=== PATIENT | male | born 1935 | race Caucasian/White ===

== ENCOUNTER 2017-08-12 14:19 | Inpatient (IN) | payer MEDICARE, SELFPAY ==
[2017-08-12] VITALS (9 sets, daily range): BP systolic 137–189; BP diastolic 77–109; PULSE 68–98; RESP 16–19; TEMP 36.2–37.2; O2SAT 97–100; BMI 31.5
--- NOTE | 2017-08-12 14:16 | ED.FALL ---
HPI - Fall <Loni Henderson PA-C - Last Filed: 08/12/17 17:44> General Chief Complaint: Extremity Injury, Lower Stated Complaint: Fall / R Hip Pain Time Seen by Provider: 08/12/17 14:19 Source: patient Mode of arrival: EMS Limitations: no limitations History of Present Illness HPI Narrative: This 82 year old male tripped and fell down one lower step prior to arrival. He landed on his right hip and states he has had pain since, had to be helped up. He states that after he hit his hip he bumped his head on a ledge that was sticking out, but states that this occurred after he fell. He states that pain is localized to the hip, denies any headache, nausea, vomiting, or vision change. He denies any pain at all in the upper extremities, abdomen, or spine. He states that he has arthritis in his right knee and wears a brace but not having any pain there. He denies any CP, dyspnea, dizzyness or other problems leading to the fall and states that he simply slipped. Related Data Home Medications Medication Instructions Recorded Confirmed lisinopril 20 mg PO QDAY #0 08/14/10 Allergies Allergy/AdvReac Type Severity Reaction Status Date / Time Penicillins [PENICILLINS] Allergy Severe HEADACHE, Verified 08/12/17 14:26 CHEST PAIN Review of Systems <Loni Henderson PA-C - Last Filed: 08/12/17 17:44> Review of Systems All systems reviewed & are unremarkable except as noted in HPI and below Exam <Loni Henderson PA-C - Last Filed: 08/12/17 17:44> Narrative Exam Narrative: GENERAL APPEARANCE: Patient sitting comfortably, in no distress. HEENT: Normocephalic, atraumatic, right iris and pupil cloudy and poorly reactive, EOMI, NECK: Supple LUNGS: Clear to auscultation bilaterally. HEART: Rate and rhythm regular without murmur, normal S1 and S2, no S3 or S4. ABDOMEN: Soft, NT, ND, + BS x 4 quadrants NEUROLOGIC: Alert and oriented, normal speech,and coordination. Right lower extremity sensation grossly intact MUSCULOSKELETAL: Full Csp AROM without tenderness. No tenderness over the thoracolumbar spine. No tenderness over the upper extremities. No tenderness over the lower extremities aside from mild tenderness over the right posterior lateral hip. He holds the hip in slight external rotation. No tenderness over the right femur, knee, or distal leg. EXTREMITIES: Ft are warm and pink with brisk cap refill, trace symmetric edema. Right PT and DP pulses 2+ Initial Vital Signs Initial Vital Signs: Vital Signs Temperature 97.5 F L 08/12/17 14:22 Pulse Rate 98 H 08/12/17 14:22 Respiratory Rate 18 08/12/17 14:22 Blood Pressure 189/109 H 08/12/17 14:22 Pulse Oximetry 99 08/12/17 14:22 <Edmond Vaughan MD - Last Filed: 08/12/17 17:51> Initial Vital Signs Initial Vital Signs: Vital Signs Temperature 97.5 F L 08/12/17 14:22 Pulse Rate 98 H 08/12/17 14:22 Respiratory Rate 18 08/12/17 14:22 Blood Pressure 189/109 H 08/12/17 14:22 Pulse Oximetry 99 08/12/17 14:22 Course <Loni Henderson PA-C - Last Filed: 08/12/17 17:44> Hospital Course: Spoke with Dr. Marroquin who will admit patient to medicine. EKG and lab work ordered. Dr. Hanna requested patient be NPO after midnight Orders Ordered: ED Orders 08/12/17 14:10 Basic Metabolic Panel Stat Complete Blood Count AUTO DIFF Stat Partial Thromboplastin Time Stat Prothrombin Time INR Stat 08/12/17 14:24 XR hip w pel if done RT 2V Stat 08/12/17 16:55 EKG-12 Lead Stat Vital Signs - 8 hr 08/12/17 14:22 08/12/17 14:29 08/12/17 14:38 Temperature 97.5 F L 98.4 F Pulse Rate 98 H 85 83 Respiratory Rate 18 16 Blood Pressure 189/109 H Blood Pressure [Left Arm] 189/109 H 171/90 H Pulse Oximetry 99 98 100 08/12/17 15:30 08/12/17 16:37 08/12/17 17:23 Temperature Pulse Rate 70 79 79 Respiratory Rate 16 18 Blood Pressure Blood Pressure [Left Arm] 174/77 H 161/83 H 174/83 H Pulse Oximetry 99 100 99 <Edmond Vaughan MD - Last Filed: 08/12/17 17:51> Orders Ordered: ED Orders 08/12/17 14:10 Basic Metabolic Panel Stat Complete Blood Count AUTO DIFF Stat Partial Thromboplastin Time Stat Prothrombin Time INR Stat 08/12/17 14:24 XR hip w pel if done RT 2V Stat 08/12/17 16:55 EKG-12 Lead Stat Vital Signs - 8 hr 08/12/17 14:22 08/12/17 14:29 08/12/17 14:38 Temperature 97.5 F L 98.4 F Pulse Rate 98 H 85 83 Respiratory Rate 18 16 Blood Pressure 189/109 H Blood Pressure [Left Arm] 189/109 H 171/90 H Pulse Oximetry 99 98 100 08/12/17 15:30 08/12/17 16:37 08/12/17 17:23 Temperature Pulse Rate 70 79 79 Respiratory Rate 16 18 Blood Pressure Blood Pressure [Left Arm] 174/77 H 161/83 H 174/83 H Pulse Oximetry 99 100 99 MDM - Fall <Loni Henderson PA-C - Last Filed: 08/12/17 17:44> Lab Data Result diagrams: 08/12/17 14:10 08/12/17 14:10 Lab Results 08/12/17 08/12/17 08/12/17 Range/Units 14:10 14:10 14:10 WBC 8.6 (4.5-11.0) X10^3/uL RBC 5.05 (4.5-5.9) X10^6/uL Hgb 15.1 (13.5-17.5) g/dL Hct 43.5 (41-53) % MCV 86.2 (80-100) fL MCH 30.0 (26-34) PG MCHC 34.8 (30-36) % RDW 13.4 (11.6-14.8) % Plt Count 224 (150-400) X10^3/uL Neut % (Auto) 51.9 (50-75) % Lymph % (Auto) 35.0 (25-40) % [place] % (Auto) 9.0 (3-14) % Eos % (Auto) 2.0 (2-4) % Baso % (Auto) 2.1 H (0-2) % Neut # (Auto) 4500 (6963-2383) /uL PT 11.6 (10.1-12.7) SECONDS INR 1.1 (0.9-1.3) APTT 35 (26.4-36.2) SECONDS Sodium 130 L (137-145) mmol/L Potassium 3.8 (3.4-5.1) mmol/L Chloride 93.0 L (98-107) mmol/L Carbon Dioxide 24.0 (22-32) mmol/L BUN 12.0 (9-20) mg/dL Creatinine 0.90 (0.66-1.25) mg/dL Estimated GFR > 60.0 (>60) mL/min BUN/Creatinine Ratio 13.3 (6-22) Glucose 110 (80-110) mg/dL Calcium 9.5 (8.4-10.2) mg/dL Imaging Data hip: Radiologist's impression: [address] [address] XRay Report Signed Patient: Renan Pérez MR#: [id number] : 1935 Acct:[id number] Age/Sex: 82 / M Date of Service: 08/12/17 Loc: ED Accession Number: [id number] Procedure: XR hip w pel if done RT 2V Ordering Provider: Loni Henderson P.A-C PROCEDURE: XR HIP W PEL IF DONE RT 2V INDICATIONS: fall, pain TECHNIQUE: 3 views of the hip were acquired. COMPARISON: None. FINDINGS: Bones: There is a mildly displaced intertrochanteric fracture of the proximal right femur. Mild joint space narrowing present in the hip joints. No suspicious bony lesions. The visualized pelvic ring appears intact. Soft tissues: There is a small linear calcification adjacent to the right lesser trochanter which may represent sequelae of an avulsion injury. IMPRESSION: 1. Mildly displaced intertrochanteric fracture of the proximal right femur. Dictated by: Christian Bonilla M.D. on 08/12/2017 at 15:01 Approved by: Christian Bonilla M.D. on 08/12/2017 at 15:02 ECG Data Attestation: I personally reviewed and interpreted this ECG as follows: (Normal sinus rhythm with rate 79, borderline left axis deviation) Prior ECG tracings: not available for review <Edmond Vaughan MD - Last Filed: 08/12/17 17:51> Lab Data Lab Results 08/12/17 08/12/17 08/12/17 Range/Units 14:10 14:10 14:10 WBC 8.6 (4.5-11.0) X10^3/uL RBC 5.05 (4.5-5.9) X10^6/uL Hgb 15.1 (13.5-17.5) g/dL Hct 43.5 (41-53) % MCV 86.2 (80-100) fL MCH 30.0 (26-34) PG MCHC 34.8 (30-36) % RDW 13.4 (11.6-14.8) % Plt Count 224 (150-400) X10^3/uL Neut % (Auto) 51.9 (50-75) % Lymph % (Auto) 35.0 (25-40) % [place] % (Auto) 9.0 (3-14) % Eos % (Auto) 2.0 (2-4) % Baso % (Auto) 2.1 H (0-2) % Neut # (Auto) 4500 (6121-1423) /uL PT 11.6 (10.1-12.7) SECONDS INR 1.1 (0.9-1.3) APTT 35 (26.4-36.2) SECONDS Sodium 130 L (137-145) mmol/L Potassium 3.8 (3.4-5.1) mmol/L Chloride 93.0 L (98-107) mmol/L Carbon Dioxide 24.0 (22-32) mmol/L BUN 12.0 (9-20) mg/dL Creatinine 0.90 (0.66-1.25) mg/dL Estimated GFR > 60.0 (>60) mL/min BUN/Creatinine Ratio 13.3 (6-22) Glucose 110 (80-110) mg/dL Calcium 9.5 (8.4-10.2) mg/dL Discharge Plan Departure Discharge Date/Time: 08/12/17 17:18 Admit Date/Time: 08/12/17 17:16 Admit Provider: Turner Marroquin <Edmond Vaughan MD - Last Filed: 08/12/17 17:51> Cosign ED Attending Cosignature Attestation: I was the attending of record and available in the ED. I attest to the documentation and agree with the assessment and plan.
--- NOTE | 2017-08-12 14:24 | DI.RAD.S_ITS ---
PROCEDURE: XR HIP W PEL IF DONE RT 2V INDICATIONS: fall, pain TECHNIQUE: 3 views of the hip were acquired. COMPARISON: None. FINDINGS: Bones: There is a mildly displaced intertrochanteric fracture of the proximal right femur. Mild joint space narrowing present in the hip joints. No suspicious bony lesions. The visualized pelvic ring appears intact. Soft tissues: There is a small linear calcification adjacent to the right lesser trochanter which may represent sequelae of an avulsion injury. IMPRESSION: 1. Mildly displaced intertrochanteric fracture of the proximal right femur. Dictated by: Christian Bonilla M.D. on 08/12/2017 at 15:01 Approved by: Christian Bonilla M.D. on 08/12/2017 at 15:02
[2017-08-12 17:05] LABS: INR 1.1 (0.9-1.3); Prothrombin Time 11.6 SECONDS (10.1-12.7)
[2017-08-12 17:08] LABS: PTT Partial Thromboplastin Tim 35 SECONDS (26.4-36.2)
[2017-08-12 17:11] LABS: Add Manual Diff / Slide Review NO; Basophils Percent Auto 2.1 % (0-2); Hematocrit 43.5 % (41-53); Hemoglobin 15.1 g/dL (13.5-17.5); Mean Corpuscular HGB Conc 34.8 % (30-36); Mean Corpuscular Volume 86.2 fL (80-100); Neutrophils Absolute Auto 4500 /uL (3000-5900); Neutrophils Percent Auto 51.9 % (50-75); Platelet Count 224 X10^3/uL (150-400); Red Blood Cell Count 5.05 X10^6/uL (4.5-5.9); Red Cell Distribution Width 13.4 % (11.6-14.8); White Blood Cell Count 8.6 X10^3/uL (4.5-11.0)
[2017-08-12 17:15] LABS: BUN Creatinine Ratio 13.3 (6-22); Calcium 9.5 mg/dL (8.4-10.2); Estimated Glomerular Filt Rate > 60.0 mL/min (>60); Glucose 110 mg/dL (80-110); HEMOLYSIS 37 (0-50); Potassium 3.8 mmol/L (3.4-5.1); Sodium 130 mmol/L (137-145)
--- NOTE | 2017-08-12 19:49 | PM.HP.1 ---
History of Present Illness Date Patient Seen: 08/12/17 Time Patient Seen: 19:57 Chief complaint: Fall / R Hip Pain Narrative: Renan Pérez is a 82 year old male patient of who was walking in his steps today turned pivoted and fell landing on his right hip. Had immediate pain. Unable to bear weight. Was brought to the emergency room. Patient had no dizziness lightheadedness. No chest pain. No other complaints. He has been feeling well. With no major issues. Past medical history. Hypertension BPH History of retinal detachment right eye Past surgical history. Colonoscopy unknown time with polyps. TURP Surgery right eye cataract and retinal repair Status post appendectomy Family history noncontributory to current admission Social history. History of smoking in the distant past. Lives with family. Retired. 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) HTN (hypertension) (Chronic) Hearing loss (Chronic) Osteoarthritis of right knee (Chronic) Retinal detachment (Resolved) Family & Social History Social History: household members spouse Prior Living Arrangements House Safety & Behavioral: Feels Safe in Current Yes Environment Been Physically Hurt or Yes Threatened By a Person Suicidal Ideation Description None Suicide Plan Description No Plan Tobacco & Substance use: Tobacco type cigarettes Smoking Status Former smoker Substance Use Type does not use Meds Home Medications Medication Instructions Recorded Confirmed Type lisinopril 20 mg PO BID #0 08/14/10 08/12/17 History Allergies Allergy/AdvReac Type Severity Reaction Status Date / Time Penicillins [PENICILLINS] Allergy Severe HEADACHE, Verified 08/12/17 14:26 CHEST PAIN Review of Systems Review of Systems All 12 systems reviewed and found to be negative Exam Vital Signs (past 8 hours): Vital Signs - 8 hr 08/12/17 14:22 08/12/17 14:29 08/12/17 14:38 Temperature 97.5 F L 98.4 F Pulse Rate 98 H 85 83 Respiratory Rate 18 16 Blood Pressure 189/109 H Blood Pressure [Left Arm] 189/109 H 171/90 H Pulse Oximetry 99 98 100 08/12/17 15:30 08/12/17 16:37 08/12/17 17:23 Temperature Pulse Rate 70 79 79 Respiratory Rate 16 18 Blood Pressure Blood Pressure [Left Arm] 174/77 H 161/83 H 174/83 H Pulse Oximetry 99 100 99 08/12/17 18:35 Temperature 97.1 F L Pulse Rate 75 Respiratory Rate 18 Blood Pressure 174/94 H Blood Pressure [Left Arm] Pulse Oximetry 98 Pulse Oximetry 98 Oxygen Delivery Method Room Air Narrative Exam Narrative: Alert elderly male in no acute distress lying in bed. HEENT exam shows right eye with what appears to be quite thick and cornea. Mother is normal. Oral mucosa unremarkable. Head shows no contusions or abrasions. Neck supple without adenopathy JVD or bruits. Normal range of motion. Lungs are clear. Heart's regular rate and rhythm without murmur clicks rubs or gallops. Abdomen is soft positive bowel sounds nontender. Extremities good pulses bilaterally normal capillary refill. Right hip was not moved. Neurologic exam was nonfocal. He is alert interactive male smiling and appropriate Objective Labs Result Diagrams: 08/12/17 14:10 08/12/17 14:10 Labs: Laboratory Results - last 24 hr 08/12/17 08/12/17 08/12/17 14:10 14:10 14:10 WBC 8.6 RBC 5.05 Hgb 15.1 Hct 43.5 MCV 86.2 MCH 30.0 MCHC 34.8 RDW 13.4 Plt Count 224 Neut % (Auto) 51.9 Lymph % (Auto) 35.0 [place] % (Auto) 9.0 Eos % (Auto) 2.0 Baso % (Auto) 2.1 H Neut # (Auto) 4500 PT 11.6 INR 1.1 APTT 35 Sodium 130 L Potassium 3.8 Chloride 93.0 L Carbon Dioxide 24.0 BUN 12.0 Creatinine 0.90 Estimated GFR > 60.0 BUN/Creatinine Ratio 13.3 Glucose 110 Calcium 9.5 Assessment & Plan Plan: Plan: Problem 1: right hip fracture. Orthopedics have been consulted. Plan is for repair tomorrow. Will start on morphine CARDIAC RN for pain control and follow. Otherwise appears stable. Problem 2. Hypertension. Will resume usual medicines. Appears to be stable. EKG is negative. Should be good candidate for repair. No other major medical problems. Problem 3. GI prophylaxis not appropriate at this time. Will follow. Problem 4. DVT prophylaxis begin Lovenox and SCDs Problem 5. Code status. Patient somewhat unclear. Will continue discussion but make full code at this time. Disposition. Admit for suspected be here 3 or 4 days depending on orthopedist response. Discussed with family. Quality VTE Deep Vein Thrombosis/Pulmonary Embolism Present on Admission: No
--- NOTE | 2017-08-12 19:58 | P.HP_ITS ---
History of Present Illness Date Patient Seen: 08/12/17 Time Patient Seen: 19:57 Chief complaint: Fall / R Hip Pain Narrative: Renan Pérez is a 82 year old male patient of who was walking in his steps today turned pivoted and fell landing on his right hip. Had immediate pain. Unable to bear weight. Was brought to the emergency room. Patient had no dizziness lightheadedness. No chest pain. No other complaints. He has been feeling well. With no major issues. Past medical history. Hypertension BPH History of retinal detachment right eye Past surgical history. Colonoscopy unknown time with polyps. TURP Surgery right eye cataract and retinal repair Status post appendectomy Family history noncontributory to current admission Social history. History of smoking in the distant past. Lives with family. Retired. 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) HTN (hypertension) (Chronic) Hearing loss (Chronic) Osteoarthritis of right knee (Chronic) Retinal detachment (Resolved) Family & Social History Social History: household members spouse Prior Living Arrangements House Safety & Behavioral: Feels Safe in Current Yes Environment Been Physically Hurt or Yes Threatened By a Person Suicidal Ideation Description None Suicide Plan Description No Plan Tobacco & Substance use: Tobacco type cigarettes Smoking Status Former smoker Substance Use Type does not use Meds Home Medications Medication Instructions Recorded Confirmed Type lisinopril 20 mg PO BID #0 08/14/10 08/12/17 History Allergies Allergy/AdvReac Type Severity Reaction Status Date / Time Penicillins [PENICILLINS] Allergy Severe HEADACHE, Verified 08/12/17 14:26 CHEST PAIN Review of Systems Review of Systems All 12 systems reviewed and found to be negative Exam Vital Signs (past 8 hours): Vital Signs - 8 hr 3 08/12/17 14:22 08/12/17 14:29 08/12/17 14:38 Temperature 97.5 F L 98.4 F Pulse Rate 98 H 85 83 Respiratory Rate 18 16 Blood Pressure 189/109 H Blood Pressure [Left Arm] 189/109 H 171/90 H Pulse Oximetry 99 98 100 3 08/12/17 15:30 08/12/17 16:37 08/12/17 17:23 Temperature Pulse Rate 70 79 79 Respiratory Rate 16 18 Blood Pressure Blood Pressure [Left Arm] 174/77 H 161/83 H 174/83 H Pulse Oximetry 99 100 99 3 08/12/17 18:35 Temperature 97.1 F L Pulse Rate 75 Respiratory Rate 18 Blood Pressure 174/94 H Blood Pressure [Left Arm] Pulse Oximetry 98 Pulse Oximetry 98 Oxygen Delivery Method Room Air Narrative Exam Narrative: Alert elderly male in no acute distress lying in bed. HEENT exam shows right eye with what appears to be quite thick and cornea. Mother is normal. Oral mucosa unremarkable. Head shows no contusions or abrasions. Neck supple without adenopathy JVD or bruits. Normal range of motion. Lungs are clear. Heart's regular rate and rhythm without murmur clicks rubs or gallops. Abdomen is soft positive bowel sounds nontender. Extremities good pulses bilaterally normal capillary refill. Right hip was not moved. Neurologic exam was nonfocal. He is alert interactive male smiling and appropriate Objective Labs Result Diagrams: 08/12/17 14:10 08/12/17 14:10 Labs: Laboratory Results - last 24 hr 08/12/17 08/12/17 08/12/17 14:10 14:10 14:10 WBC 8.6 RBC 5.05 Hgb 15.1 Hct 43.5 MCV 86.2 MCH 30.0 MCHC 34.8 RDW 13.4 Plt Count 224 Neut % (Auto) 51.9 Lymph % (Auto) 35.0 [place] % (Auto) 9.0 Eos % (Auto) 2.0 Baso % (Auto) 2.1 H Neut # (Auto) 4500 PT 11.6 INR 1.1 APTT 35 Sodium 130 L Potassium 3.8 Chloride 93.0 L Carbon Dioxide 24.0 BUN 12.0 Creatinine 0.90 Estimated GFR > 60.0 BUN/Creatinine Ratio 13.3 Glucose 110 Calcium 9.5 Assessment & Plan Plan: Plan: Problem 1: right hip fracture. Orthopedics have been consulted. Plan is for repair tomorrow. Will start on morphine RUNNING SPECIALIST for pain control and follow. Otherwise appears stable. Problem 2. Hypertension. Will resume usual medicines. Appears to be stable. EKG is negative. Should be good candidate for repair. No other major medical problems. Problem 3. GI prophylaxis not appropriate at this time. Will follow. Problem 4. DVT prophylaxis begin Lovenox and SCDs Problem 5. Code status. Patient somewhat unclear. Will continue discussion but make full code at this time. Disposition. Admit for suspected be here 3 or 4 days depending on orthopedist response. Discussed with family. Quality VTE Deep Vein Thrombosis/Pulmonary Embolism Present on Admission: No
[2017-08-12] MEDS: LISINOPRIL 20 MG TABLET PO (22:08)
[2017-08-12] MEDS: MORPHINE PCA 30 MG/30 ML PCA.VIAL IV (22:11)
[2017-08-13] VITALS (17 sets, daily range): BP systolic 110–172; BP diastolic 62–100; PULSE 57–79; RESP 14–20; TEMP 36.1–37.2; O2SAT 93–99; BMI 31.5
--- NOTE | 2017-08-13 | DI.RAD.S_ITS ---
PROCEDURE: XR HIP W PEL IF DONE RT 2V INDICATIONS: ORIF RIGHT HIP TECHNIQUE: 4 views of the hip were acquired. COMPARISON: [facility], [place], XR HIP W PEL IF DONE RT 2V, 08/12/2017, 14:12. FINDINGS: Bones: Expected postoperative appearance after placement of short medullary kodi and a diagonal dynamic hip screw establishing normal alignment at the acute intertrochanteric right hip fracture Soft tissues: No suspicious soft tissue calcifications or masses. IMPRESSION: Normal postoperative alignment. Dictated by: Jesus Sheets M.D. on 08/13/2017 at 11:53 Approved by: Jesus Sheets M.D. on 08/13/2017 at 11:54
[2017-08-13] MEDS: MORPHINE PCA 30 MG/30 ML PCA.VIAL IV (05:47)
[2017-08-13 06:01] LABS: Add Manual Diff / Slide Review NO; Basophils Percent Auto 1.3 % (0-2); Eosinophils Percent Auto 3.5 % (2-4); Hemoglobin 14.4 g/dL (13.5-17.5); Lymphocytes Percent Auto 22.4 % (25-40); Mean Corpuscular HGB Conc 35.1 % (30-36); Mean Corpuscular Hemoglobin 29.9 PG (26-34); Mean Corpuscular Volume 85.2 fL (80-100); Monocytes Percent Auto 10.9 % (3-14); Neutrophils Absolute Auto 5700 /uL (3000-5900); Neutrophils Percent Auto 61.9 % (50-75); Platelet Count 193 X10^3/uL (150-400); Red Blood Cell Count 4.81 X10^6/uL (4.5-5.9); Red Cell Distribution Width 13.2 % (11.6-14.8); White Blood Cell Count 9.3 X10^3/uL (4.5-11.0)
[2017-08-13 06:13] LABS: BUN Creatinine Ratio 18.6 (6-22); Estimated Glomerular Filt Rate > 60.0 mL/min (>60); Glucose 98 mg/dL (80-110); HEMOLYSIS 15 (0-50); Potassium 4.4 mmol/L (3.4-5.1); Sodium 129 mmol/L (137-145)
--- NOTE | 2017-08-13 06:58 | PC.NURSE ---
NOC note: Pt used only 2mg of DIRECTOR OF C[employer]US RECREATION Morphine stating that his pain has improved over the night, using the urinal to void and pt has remained NPO after midnight as ordered.
[2017-08-13] MEDS: LISINOPRIL 20 MG TABLET PO ×2 (08:04→20:43)
--- NOTE | 2017-08-13 08:04 | PM.PN.1 ---
Subjective Date Patient Seen: 08/13/17 Time Patient Seen: 08:04 Interval history: Patient overall feeling well. No chest pain. No shortness of breath. Did not sleep well secondary to the pain. Did feel like the FRONT DESK ASSOCIATE worked. No other changes. Exam Vital Signs (past 8 hours): Vital Signs - 8 hr 08/13/17 01:00 08/13/17 05:00 Temperature 98.4 F Pulse Rate 66 Respiratory Rate 16 Blood Pressure 150/80 H Pulse Oximetry 97 98 Pulse Oximetry 98 Oxygen Delivery Method Room Air Oxygen Flow Rate 0 Narrative Exam Narrative: Alert male in no acute distress sitting in bed smiling Lungs are clear. Heart regular in rhythm. Extremities with good pulses. Normal capillary refill. Objective Labs Result Diagrams: 08/13/17 05:16 08/13/17 05:16 Labs: Laboratory Results - last 24 hr 08/12/17 08/12/17 08/12/17 14:10 14:10 14:10 WBC 8.6 RBC 5.05 Hgb 15.1 Hct 43.5 MCV 86.2 MCH 30.0 MCHC 34.8 RDW 13.4 Plt Count 224 Neut % (Auto) 51.9 Lymph % (Auto) 35.0 [place] % (Auto) 9.0 Eos % (Auto) 2.0 Baso % (Auto) 2.1 H Neut # (Auto) 4500 PT 11.6 INR 1.1 APTT 35 Sodium 130 L Potassium 3.8 Chloride 93.0 L Carbon Dioxide 24.0 BUN 12.0 Creatinine 0.90 Estimated GFR > 60.0 BUN/Creatinine Ratio 13.3 Glucose 110 Calcium 9.5 08/13/17 08/13/17 05:16 05:16 WBC 9.3 RBC 4.81 Hgb 14.4 Hct 41.0 MCV 85.2 MCH 29.9 MCHC 35.1 RDW 13.2 Plt Count 193 Neut % (Auto) 61.9 Lymph % (Auto) 22.4 L [place] % (Auto) 10.9 Eos % (Auto) 3.5 Baso % (Auto) 1.3 Neut # (Auto) 5700 PT INR APTT Sodium 129 L Potassium 4.4 Chloride 94.0 L Carbon Dioxide 25.0 BUN 13.0 Creatinine 0.70 Estimated GFR > 60.0 BUN/Creatinine Ratio 18.6 Glucose 98 Calcium 9.0 Assessment & Plan Plan: Plan: Problem 1. Right intra trochanteric hip fracture. As per orthopedist. Surgery today. Should be fine. Problem 2. Hypertension. Mildly elevated will see how he responds to his usual dose of lisinopril. Will follow. Problem 3. DVT prophylaxis. SCDs. Will hold Lovenox. Otherwise as per orthopedist. Problem 4. GI prophylaxis. No need at this time. Will follow. Disposition. We will see how he response to surgery. Excellent another couple days but will see what Orthopedics recommend. Quality VTE Deep Vein Thrombosis/Pulmonary Embolism Present on Admission: Yes
--- NOTE | 2017-08-13 08:07 | P.PN_ITS ---
Subjective Date Patient Seen: 08/13/17 Time Patient Seen: 08:04 Interval history: Patient overall feeling well. No chest pain. No shortness of breath. Did not sleep well secondary to the pain. Did feel like the SR VICE PRESIDENT worked. No other changes. Exam Vital Signs (past 8 hours): Vital Signs - 8 hr 3 08/13/17 01:00 08/13/17 05:00 Temperature 98.4 F Pulse Rate 66 Respiratory Rate 16 Blood Pressure 150/80 H Pulse Oximetry 97 98 Pulse Oximetry 98 Oxygen Delivery Method Room Air Oxygen Flow Rate 0 Narrative Exam Narrative: Alert male in no acute distress sitting in bed smiling Lungs are clear. Heart regular in rhythm. Extremities with good pulses. Normal capillary refill. Objective Labs Result Diagrams: 08/13/17 05:16 08/13/17 05:16 Labs: Laboratory Results - last 24 hr 08/12/17 08/12/17 08/12/17 14:10 14:10 14:10 WBC 8.6 RBC 5.05 Hgb 15.1 Hct 43.5 MCV 86.2 MCH 30.0 MCHC 34.8 RDW 13.4 Plt Count 224 Neut % (Auto) 51.9 Lymph % (Auto) 35.0 [place] % (Auto) 9.0 Eos % (Auto) 2.0 Baso % (Auto) 2.1 H Neut # (Auto) 4500 PT 11.6 INR 1.1 APTT 35 Sodium 130 L Potassium 3.8 Chloride 93.0 L Carbon Dioxide 24.0 BUN 12.0 Creatinine 0.90 Estimated GFR > 60.0 BUN/Creatinine Ratio 13.3 Glucose 110 Calcium 9.5 08/13/17 08/13/17 05:16 05:16 WBC 9.3 RBC 4.81 Hgb 14.4 Hct 41.0 MCV 85.2 MCH 29.9 MCHC 35.1 RDW 13.2 Plt Count 193 Neut % (Auto) 61.9 Lymph % (Auto) 22.4 L [place] % (Auto) 10.9 Eos % (Auto) 3.5 Baso % (Auto) 1.3 Neut # (Auto) 5700 PT INR APTT Sodium 129 L Potassium 4.4 Chloride 94.0 L Carbon Dioxide 25.0 BUN 13.0 Creatinine 0.70 Estimated GFR > 60.0 BUN/Creatinine Ratio 18.6 Glucose 98 Calcium 9.0 Assessment & Plan Plan: Plan: Problem 1. Right intra trochanteric hip fracture. As per orthopedist. Surgery today. Should be fine. Problem 2. Hypertension. Mildly elevated will see how he responds to his usual dose of lisinopril. Will follow. Problem 3. DVT prophylaxis. SCDs. Will hold Lovenox. Otherwise as per orthopedist. Problem 4. GI prophylaxis. No need at this time. Will follow. Disposition. We will see how he response to surgery. Excellent another couple days but will see what Orthopedics recommend. Quality VTE Deep Vein Thrombosis/Pulmonary Embolism Present on Admission: Yes
[2017-08-13] MEDS: LACTATED RINGERS 1,000 ML 42 ML IV (09:15)
[2017-08-13] MEDS: CLINDAMYCIN 900 MG/50 ML PIGGYBACK 50 MG IV ×2 (09:35→18:03)
--- NOTE | 2017-08-13 09:38 | P.CONS_ITS ---
History of Present Illness Date Patient Seen: 08/13/17 Time Patient Seen: 08:38 Chief complaint: Fall / R Hip Pain Reason for consult: hip fracture Requesting provider: Jerry Leos Narrative: Mr. Pérez is a 82-year-old male who had a fall and landed on his right hip. Patient was transported to the [facility] Emergency Room. Patient was found to have a right femur intertrochanteric fracture. Orthopedic service was consulted. After reviewing patient's images and discussing treatment options patient elected to proceed with surgical treatment. Patient is scheduled for closed reduction intramedullary nailing of the right proximal femur. 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) HTN (hypertension) (Chronic) Hearing loss (Chronic) Osteoarthritis of right knee (Chronic) Retinal detachment (Resolved) Surgical History H/O cataract removal with insertion of prosthetic lens (Acute) S/P TURP (status post transurethral resection of prostate) (Acute) S/P colonoscopy with polypectomy (Acute) Social History household members: spouse Smoking Status: Former smoker Meds Home Medications Medication Instructions Recorded Confirmed Type lisinopril 20 mg PO BID #0 08/14/10 08/12/17 History Allergies Allergy/AdvReac Type Severity Reaction Status Date / Time Penicillins [PENICILLINS] Allergy Severe HEADACHE, Verified 08/13/17 09:23 CHEST PAIN Review of Systems Review of Systems All systems reviewed & are unremarkable except as noted in HPI and below Exam Vital Signs (past 8 hours): Vital Signs - 8 hr 3 08/13/17 05:00 08/13/17 07:45 Temperature 98.4 F 98 F Pulse Rate 66 69 Respiratory Rate 16 18 Blood Pressure 150/80 H 154/100 H Pulse Oximetry 98 99 Pulse Oximetry 99 Oxygen Delivery Method Room Air Oxygen Flow Rate 0 Extrem Other: Right leg is shortened and externally rotated. Pain with exam. Neurovascularly intact. Objective Labs Result Diagrams: 08/13/17 05:16 08/13/17 05:16 Labs: Laboratory Results - last 24 hr 08/12/17 08/12/17 08/12/17 14:10 14:10 14:10 WBC 8.6 RBC 5.05 Hgb 15.1 Hct 43.5 MCV 86.2 MCH 30.0 MCHC 34.8 RDW 13.4 Plt Count 224 Neut % (Auto) 51.9 Lymph % (Auto) 35.0 Graham % (Auto) 9.0 Eos % (Auto) 2.0 Baso % (Auto) 2.1 H Neut # (Auto) 4500 PT 11.6 INR 1.1 APTT 35 Sodium 130 L Potassium 3.8 Chloride 93.0 L Carbon Dioxide 24.0 BUN 12.0 Creatinine 0.90 Estimated GFR > 60.0 BUN/Creatinine Ratio 13.3 Glucose 110 Calcium 9.5 08/13/17 08/13/17 05:16 05:16 WBC 9.3 RBC 4.81 Hgb 14.4 Hct 41.0 MCV 85.2 MCH 29.9 MCHC 35.1 RDW 13.2 Plt Count 193 Neut % (Auto) 61.9 Lymph % (Auto) 22.4 L Graham % (Auto) 10.9 Eos % (Auto) 3.5 Baso % (Auto) 1.3 Neut # (Auto) 5700 PT INR APTT Sodium 129 L Potassium 4.4 Chloride 94.0 L Carbon Dioxide 25.0 BUN 13.0 Creatinine 0.70 Estimated GFR > 60.0 BUN/Creatinine Ratio 18.6 Glucose 98 Calcium 9.0 Assessment & Plan Plan: Plan: Patient has a displaced right proximal femur intertrochanteric fracture. Risks and benefits of the surgery was discussed. Patient is scheduled to have right femur intramedullary nailing for treatment of his fracture. The surgery will be performed on an emergent basis today.
--- NOTE | 2017-08-13 11:46 | PM.OP.1 ---
Operative Date/Time/Diagnoses - Date of procedure: 08/13/17 Time of procedure: 09:46 Pre-op diagnosis: Right femur intertrochanteric fracture Post-op diagnosis: same Procedure & Clinicians Procedure: Right femur close reduction and intramedullary nailing with cephalomedullary device Same procedure as scheduled: Yes Indications: Mr. Pérez is a 82-year-old male who had a fall and sustained a right proximal femur intertrochanteric fracture. After discussing risks and benefits of treatment options patient elected proceed with surgical treatment. Patient was taken to the operative room on the emergent basis for surgery. Surgeon: Rock Hanna Click Yes if Unassisted: Yes Anesthesia Type: General Operative Notes Closure Type: primary Specimen(s): none sent Implants & Drains: Synthes TFN IMN Applied: catheter Estimated Blood Loss (mL): 100 Blood products transfused: none Procedure in detail: Patient was seen in the preoperative area. Risks and benefits of the surgery was discussed with the patient. Informed consent was obtained from the patient and placed in the chart. Surgical site was marked. Patient was taken to the operative room. Spinal block and IV sedation was administered by anesthesiologist. Prophylactic antibiotic was given to the patient less than 30 min before the incision was made. Patient was placed into a supine position on the fracture table. Patient's hip was then prepped and draped in the sterile fashion. Time-out was performed at this time. Using the fracture table, a closed reduction maneuver was performed to the right proximal femur fracture. This was done by distracting internally rotating and adducting the right hip. After the fracture reduction was completed and confirmed with AP and lateral C-arm imaging, Patient's hip was then prepped and draped in the sterile fashion. A 3 in incision just proximal to the greater trochanter was made on the lateral aspect of the patient's hip. Starting guidewire was inserted through the incision onto the greater trochanter. The guidewire was driven into the intramedullary canal and confirmed with AP and lateral C-arm imaging. The canal opening Reamer was used to open the canal from the proximal to distal fashion. A 11 mm 130 degree nail was assembled on the back table and inserted into the mid intramedullary canal from a proximal distal fashion. The lateral targeting guide was used to place the cephalomedullary device by placing a lateral incision after targeting guide was used to measure the location of the incision. The fascia was incised in line with skin incision the targeting guide was inserted and docked onto the lateral aspect of the lateral cortex of the proximal femur and a guidewire was drilled through the lateral cortex into the femoral head through the femoral neck in the center location on both AP and lateral imaging. Depth gauge was used to measure the length of the cephalomedullary device a 105 mm cephalomedullary piece was chosen and placed through the lateral cortex into the femoral head through the IM nail. A distal locking screw was then placed using the same targeting guide after drilling in bicortical fashion. Depth gauge was used to measure the length. 46 mm screw was inserted. After all the hardware was placed, AP and lateral C-arm imaging was used to confirm placement of the hardware and reduction of the fracture. Good placement of the hardware and good reduction of the fracture was confirmed. The wound was then irrigated with sterile normal saline. The deep fascia was closed with 1-0 Vicryl, subcutaneous tissue was closed with 2-0 Vicryl and skin was closed with skin patricia. Sterile dressing was applied the patient's skin and patient was woken up from sedation and transferred to recovery room stable condition. Complications: none Condition: stable Disposition: PACU Plan for aftercare: Admit to inpatient hospital
--- NOTE | 2017-08-13 13:10 | PC.NURSE ---
Ortho: Returned from pacu awake, oriented, O2 sats on ra are 97%. Did not have an epidural but did have a spinal. Unable to move legs yet. No sensation from the just above the umbilicus to toes. No pain. PPP, feet =/warm, lg bulky dressing to hip is c/d/i, ice pack in place. Has the shivers, temp 96.6, warm blankets applied.
--- NOTE | 2017-08-13 13:48 | PT.IPTN ---
Surgery Performed Operation Date: 08/13/17 09:30 Actual Procedures p ORIF Hip/Intramedullary Hip Screw - Rock Hanna MD Pt reports BLE numbness up to umbilical region. Will attempt PT evaluation tomorrow in a.m.
[2017-08-13] MEDS: LACTATED RINGERS 1,000 ML 100 ML IV (14:24)
[2017-08-13] MEDS: OXYCODONE IR 10 MG TABLET PO ×2 (17:13→22:14)
[2017-08-14] VITALS (10 sets, daily range): BP systolic 99–140; BP diastolic 56–77; PULSE 71–83; RESP 16–18; TEMP 36.2–37.8; O2SAT 95–96
[2017-08-14] MEDS: LACTATED RINGERS 1,000 ML 100 ML IV (00:28)
[2017-08-14] MEDS: CLINDAMYCIN 900 MG/50 ML PIGGYBACK 50 MG IV ×2 (00:30→16:55)
[2017-08-14] MEDS: OXYCODONE IR 10 MG TABLET PO ×2 (04:47→11:17)
--- NOTE | 2017-08-14 05:29 | PC.NURSE ---
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 Right hip bulky dressing X2 intact with small amount of sero-sang drainage shadowing marked to distal end of lower dressing & scant amount to distal end of upper dressing. PPP, CMS+, Trace edema noted to right hip area. Pt voiding qs using urinal, IVF infusing well to right AC PIV. At beginning of shift, pt reported 2-3/10 dull aching to right hip, not wanting pain meds. Pt did expressing facial grimacing with repositioning. Prn pain meds discussed, pt stated pain settles quickly. Prn Oxycodone given at 0450 for 3/10 pain, plan for pain med with breakfast in anticipation of ambulating with PT thereafter. Pt agreed with plan. Gave applesauce with medication. No other voiced concerns, high fall risk precautions in place & bed alarm on.
[2017-08-14] MEDS: LISINOPRIL 20 MG TABLET PO ×2 (08:57→20:54)
--- NOTE | 2017-08-14 08:59 | PT.IIE ---
Physical Therapy Inpatient Evaluation/Re-Eval M1 PT/OT-IP Prior Functional Status Start: 08/14/17 07:40 Freq: NEEDED Status: Active Protocol: Document 08/14/17 08:52 RS (Rec: 08/14/17 08:59 RS [email or web address]) Medical Review Prior Functional Status Medical History Reviewed Yes Communication no known deficits. Mobility and Gait completely independent Prior Functional Level (Other details) blind in R eye Social History Household Members spouse Living Arrangements House Number of Floors (Floors) One Floor Employment Status Retired Additional Social History Comment will be staying with Krista ochoa, once ready to go home. She has fewer steps, only 3STE , 1 rail on R when ascending. M2 PT-IP Current Condition Start: 08/14/17 07:40 Freq: NEEDED Status: Active Protocol: Document 08/14/17 08:52 RS (Rec: 08/14/17 08:59 RS [email or web address]) Physical Therapy Current Condition Current Condition Evaluation Date 08/14/17 Treatment Diagnosis impaired mobility s/p R femur fracture w/ CRIF Weight Bearing Status Weight Bearing Status Weight Bear as Tolerated M3 PT-IP Subjective Start: 08/14/17 07:40 Freq: NEEDED Status: Active Protocol: Document 08/14/17 08:52 RS (Rec: 08/14/17 08:59 RS [email or web address]) Subjective Physical Therapy Visit Type Type Initial Evaluation Visit Start Time 08:01 Visit Stop Time 08:53 Total Visit Minutes 52 Notes Krista ochoa, present entire session Physical Therapy Visit Comments Patient Comments Pt denies pain, ready to get up and moving Patient/Caregiver Goals go to dtr's house until he's able to return to his own home Therapy Pain Assessment Pain When Pain Assessed At Rest Pain Present Pain Present Denied Pain M4 PT-IP Mobility and Gait Start: 08/14/17 07:40 Freq: NEEDED Status: Active Protocol: Document 08/14/17 08:52 RS (Rec: 08/14/17 08:59 RS [email or web address]) PT-Bed Mobility Assessment Rolling Type of Rolling Bilateral Level of Assist Maximal Assistance 2 Person Assistance Supine to Sit Supine to Sit Moderate Assistance 2 Person Assistance Head of Bed Elevated Bedrails Scooting Scooting to Edge of Bed Moderate Assistance PT-Transfer Assessment Sit to and From Stand Sit to and from Stand Minimal Assistance 1 Person Assistance Use of Upper Extremities Equipment Transfer Assistive Device Gait Belt Front Wheeled Walker Transfers Transfer Destination Chair Transfer Technique Stand Pivot Transfer Ability Level of Assist Minimal Assistance 1 Person Assistance Use of Upper Extremities Comments Mobility Comments Pt is unable to lift the L foot, relying completely on sliding the L foot in order to transfer. PT-Balance Assessment Sitting Balance and Reactions Static Sitting Balance Ability Good Dynamic Sitting Balance Ability Fair Standing Balance and Reactions Static Standing Balance Ability Poor Dynamic Standing Balance Ability Poor Device Used FWW M5 PT-IP Objective Assessments Start: 08/14/17 07:40 Freq: NEEDED Status: Active Protocol: Document 08/14/17 08:52 RS (Rec: 08/14/17 08:59 RS [email or web address]) Orientation Orientation/Cognition Level of Alertness Alert Orientation Name Age Birthday Month Date Year Day of Week Place Situation Language Function Ability No Deficits Noted Safety Awareness Understands Safety Issues Memory Description No Deficits Noted Gross Range of Motion Upper Extremity ROM Assessment Within Functional Limits Lower Extremity ROM Assessment Right Impaired Impairments pt does not tolerate much movement (active or passive) in the RLE due to pain. Pt also with a previous R knee injury. Strength Upper Extremity Strength Assessment Within Functional Limits Comments Strength Comments strength not formally tested, but RLE seems to have significant pain related weakness. M6 PT-IP Treatment Start: 08/14/17 07:40 Freq: NEEDED Status: Active Protocol: Document 08/14/17 08:52 RS (Rec: 08/14/17 08:59 RS [email or web address]) Physical Therapy Treatment Education Post-Op Education Weight Bearing Status Safety M7 PT-IP Assessment and Plan Start: 08/14/17 07:40 Freq: NEEDED Status: Active Protocol: Document 08/14/17 08:52 RS (Rec: 08/14/17 08:59 RS [email or web address]) PT Summary Assessment and Plan Potential Rehabilitation Potential Good Status of Condition at Evaluation Evolving Summary Impairments Pain Strength Progress Towards Goals Progressing Toward Goals Slow Progress due to Pain Goals Bed Mobility Goal Minimal Assistance Transfer Goal Contact Guard Assistance Front Wheeled Walker Gait Goal Contact Guard Assistance Front Wheel Walker Gait Distance 50 Frequency of Treatment Frequency Of Treatment Twice a Day Treatment Plan Physical Therapy Treatment Plan Bed Mobility Training Transfer Training Gait Training Therapeutic Exercise Post Op Education Discharge Planning Other Recommendations and Next Treatment needs to go over post-op Focus packet Recommendations To Nursing Amount of Assist Needed 2 Person Assist Discharge Recommendations PT Discharge Recommendations SNF Rehab Visit Care Team Role Provider Type Evan Majano MD Primary Care Provider Physician Loni Henderson PA-C Emergency Provider Advanced Practioner Clinician Turner Marroquin MD Admit Provider Physician Attending Provider Current Diagnoses Displaced intertrochanteric fracture of right femur, initial encounter for closed fracture (08/12/17) Medical History (Last Updated 08/13/17 @ 07:23 by Gayle Miles, RN) Cataract (Acute) 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
--- NOTE | 2017-08-14 09:09 | PM.PN.1 ---
Subjective Date Patient Seen: 08/14/17 Time Patient Seen: 09:10 Interval history: Patient seen in follow-up of hip fracture and repair. Overall feeling well. Pain has been moderate had difficulty getting up to chair today. Exam Vital Signs (past 8 hours): Vital Signs - 8 hr 08/14/17 03:25 08/14/17 04:45 08/14/17 05:29 Temperature 99.4 F Pulse Rate 71 Respiratory Rate 16 16 18 Blood Pressure 140/77 H Pulse Oximetry 96 08/14/17 08:24 Temperature 97.2 F L Pulse Rate 74 Respiratory Rate 16 Blood Pressure 134/63 H Pulse Oximetry 96 Pulse Oximetry 96 Oxygen Delivery Method Room Air Oxygen Flow Rate 0 Narrative Exam Narrative: Elderly male sitting in chair in no acute distress Lungs are clear. Heart regular rate and rhythm. Abdomen is soft positive bowel sounds nontender. Extremities show no edema. Neurologic exam is nonfocal Objective Labs Result Diagrams: 08/13/17 05:16 08/13/17 05:16 Assessment & Plan Plan: Plan: Problem 1. Hypertension. Numbers look good. No other changes. No change in medication Problem 2. Hyponatremia. Mild decreased. Will recheck in a.m.. Problem 3. Right hip fracture status post repair. Seems to be doing well. Disposition. Expect discharge as when orthopedics feels stable. Either Monday or Monday depending on the recommendation. We will see how things go. Quality VTE Deep Vein Thrombosis/Pulmonary Embolism Present on Admission: Yes
--- NOTE | 2017-08-14 09:13 | P.PN_ITS ---
Subjective Date Patient Seen: 08/14/17 Time Patient Seen: 09:10 Interval history: Patient seen in follow-up of hip fracture and repair. Overall feeling well. Pain has been moderate had difficulty getting up to chair today. Exam Vital Signs (past 8 hours): Vital Signs - 8 hr 3 08/14/17 03:25 08/14/17 04:45 08/14/17 05:29 Temperature 99.4 F Pulse Rate 71 Respiratory Rate 16 16 18 Blood Pressure 140/77 H Pulse Oximetry 96 3 08/14/17 08:24 Temperature 97.2 F L Pulse Rate 74 Respiratory Rate 16 Blood Pressure 134/63 H Pulse Oximetry 96 Pulse Oximetry 96 Oxygen Delivery Method Room Air Oxygen Flow Rate 0 Narrative Exam Narrative: Elderly male sitting in chair in no acute distress Lungs are clear. Heart regular rate and rhythm. Abdomen is soft positive bowel sounds nontender. Extremities show no edema. Neurologic exam is nonfocal Objective Labs Result Diagrams: 08/13/17 05:16 08/13/17 05:16 Assessment & Plan Plan: Plan: Problem 1. Hypertension. Numbers look good. No other changes. No change in medication Problem 2. Hyponatremia. Mild decreased. Will recheck in a.m.. Problem 3. Right hip fracture status post repair. Seems to be doing well. Disposition. Expect discharge as when orthopedics feels stable. Either Monday or Monday depending on the recommendation. We will see how things go. Quality VTE Deep Vein Thrombosis/Pulmonary Embolism Present on Admission: Yes
--- NOTE | 2017-08-14 10:17 | CM.DANOTE ---
DCP/Assessment: Reviewed chart. Patient is a 82yr old male admitted to [facility] on 08-12-17 as inpatient with right hip fx. PCP is Dr. Majano. Admitting MD is Dr. Marroquin. Primary payor is 1) Medicare [employer]. Patient underwent right hip repair on 08-13-[address] Hanna. Patient seen by PT this AM. Current recommendation is SNF for rehab when patient medically stable. PT reports that patient and family aware and agreeable. BENDING PRESS OPERATOR met with patient and 2 daughter's Cheyanne and Krista at bedside. Patient sitting in recliner visiting with family. Patient and family provided Medicare contracted SNF list. First choice is [facility]. BENDING PRESS OPERATOR placed call to Maite at [facility] and she will review for admit. D/C anticipated within the next 24-48hrs. Patient reports that he was primarily I with ADL's prior to admit. Family confirms. P: [facility] reviewing for potential admit when patient is medically stable. RN and Dr. Marroquin updated. PASRR completed. team to continue to follow closely. CRISTI Rai
--- NOTE | 2017-08-14 10:55 | PC.NURSE ---
Dayshift Note: Pt checked on and assessed. Pt was sitting upright in chair, 2 person assist with PT. Pt denies pain. R hip dressings are CDI with no change in drainage from what was marked by previous RN. CMS intact, peripheral pulses good, feet cool but symmetrically so. Pt is alert and oriented, on RA, lungs CTA. Denies nausea, abdomen soft with good BTs. Will continue to monitor, call light in reach. Notify MD with changes.
--- NOTE | 2017-08-14 12:05 | P.PN_ITS ---
Exam Vital Signs (past 8 hours): Vital Signs - 8 hr 3 08/14/17 04:45 08/14/17 05:29 08/14/17 08:24 Temperature 99.4 F 97.2 F L Pulse Rate 71 74 Respiratory Rate 16 18 16 Blood Pressure 140/77 H 134/63 H Pulse Oximetry 96 96 Pulse Oximetry 96 Oxygen Delivery Method Room Air Oxygen Flow Rate 0 Objective Labs Result Diagrams: 08/13/17 05:16 08/13/17 05:16 Assessment & Plan Plan: Plan: Patient is admitted after surgery. Patient has been stable and progressing with physical therapy. Patient is neurovascularly intact on exam. Patient has no signs or symptoms of DVT. Patient's dressing is clean dry and intact. He has walked short distance with PT. Will additional mobility training. Will re-assess tomorrow. Continue progressive WBAT to RLE. Quality VTE Deep Vein Thrombosis/Pulmonary Embolism Present on Admission: Yes
--- NOTE | 2017-08-14 13:55 | PT.IPTN ---
Current Diagnoses Displaced intertrochanteric fracture of right femur, initial encounter for closed fracture (08/12/17) Surgery Performed Operation Date: 08/13/17 09:30 Actual Procedures p ORIF Hip/Intramedullary Hip Screw - Rock Hanna MD Physical Therapy Treatment Note M2 PT-IP Current Condition Start: 08/14/17 07:40 Freq: NEEDED Status: Active Protocol: Document 08/14/17 08:52 RS (Rec: 08/14/17 08:59 RS [email or web address]) Physical Therapy Current Condition Current Condition Evaluation Date 08/14/17 Treatment Diagnosis impaired mobility s/p R femur fracture w/ CRIF Weight Bearing Status Weight Bearing Status Weight Bear as Tolerated M3 PT-IP Subjective Start: 08/14/17 07:40 Freq: NEEDED Status: Active Protocol: Document 08/14/17 12:40 CLB (Rec: 08/14/17 13:54 CLB [email or web address]) Subjective Physical Therapy Visit Type Type Treatment Note Visit Start Time 12:40 Visit Stop Time 13:01 Total Visit Minutes 21 Number of RENEWABLE ENERGY TRADER Visits 1 Physical Therapy Visit Comments Patient Comments Pt denies pain and likes sitting in the chair. Therapy Pain Assessment Pain When Pain Assessed At Rest Pain Present Pain Present Denied Pain M4 PT-IP Mobility and Gait Start: 08/14/17 07:40 Freq: NEEDED Status: Active Protocol: Document 08/14/17 12:40 CLB (Rec: 08/14/17 13:54 CLB [email or web address]) PT-Transfer Assessment Sit to and From Stand Sit to and from Stand Minimal Assistance 1 Person Assistance Use of Upper Extremities Equipment Transfer Assistive Device Gait Belt Front Wheeled Walker Transfers Transfer Destination Chair Transfer Technique Forward/Backward Scoot Transfer Ability Level of Assist Minimal Assistance 1 Person Assistance Use of Upper Extremities Comments Mobility Comments Pt having pain in RLE and unable to lift LLE. Gait Assessment Comments Gait Comments Pt unable to ambulate at this time. M5 PT-IP Objective Assessments Start: 08/14/17 07:40 Freq: NEEDED Status: Active Protocol: Document 08/14/17 08:52 RS (Rec: 08/14/17 08:59 RS [email or web address]) Orientation Orientation/Cognition Level of Alertness Alert Orientation Name Age Birthday Month Date Year Day of Week Place Situation Language Function Ability No Deficits Noted Safety Awareness Understands Safety Issues Memory Description No Deficits Noted Gross Range of Motion Upper Extremity ROM Assessment Within Functional Limits Lower Extremity ROM Assessment Right Impaired Impairments pt does not tolerate much movement (active or passive) in the RLE due to pain. Pt also with a previous R knee injury. Strength Upper Extremity Strength Assessment Within Functional Limits Comments Strength Comments strength not formally tested, but RLE seems to have significant pain related weakness. M6 PT-IP Treatment Start: 08/14/17 07:40 Freq: NEEDED Status: Active Protocol: Document 08/14/17 12:40 CLB (Rec: 08/14/17 13:54 CLB [email or web address]) Physical Therapy Treatment Education Post-Op Education Weight Bearing Status Post-Op Packet Safety Other Treatments Other Treatment Performed Standing weight shifts M7 PT-IP Assessment and Plan Start: 08/14/17 07:40 Freq: NEEDED Status: Active Protocol: Document 08/14/17 12:40 CLB (Rec: 08/14/17 13:54 CLB [email or web address]) PT Summary Assessment and Plan Potential Rehabilitation Potential Good Status of Condition at Evaluation Evolving Summary Impairments Pain Strength Progress Towards Goals Progressing Toward Goals Slow Progress due to Pain Goals Bed Mobility Goal Minimal Assistance Transfer Goal Contact Guard Assistance Front Wheeled Walker Gait Goal Contact Guard Assistance Front Wheel Walker Gait Distance 50 Frequency of Treatment Frequency Of Treatment Twice a Day Treatment Plan Physical Therapy Treatment Plan Bed Mobility Training Transfer Training Gait Training Therapeutic Exercise Post Op Education Discharge Planning Other Recommendations and Next Treatment Mobility and gait as able. Focus Recommendations To Nursing Amount of Assist Needed 2 Person Assist Discharge Recommendations PT Discharge Recommendations SNF Rehab
[2017-08-14] MEDS: SODIUM CHLORIDE 0.9% FLUSH 10 ML IV (20:55)
[2017-08-15] MEDS: CLINDAMYCIN 900 MG/50 ML PIGGYBACK 50 MG IV ×2 (02:00→18:00)
[2017-08-15] MEDS: SODIUM CHLORIDE 0.9% FLUSH 10 ML IV ×3 (03:12→22:06)
[2017-08-15 05:36] LABS: Blood Urea Nitrogen 12 mg/dL (9-20); Calcium 8.3 mg/dL (8.4-10.2); Carbon Dioxide 24 mmol/L (22-32); Chloride 93 mmol/L (98-107); Estimated Glomerular Filt Rate > 60.0 mL/min (>60); Glucose 96 mg/dL (80-110); HEMOLYSIS < 15 (0-50); Potassium 4.4 mmol/L (3.4-5.1); Sodium 126 mmol/L (137-145)
[2017-08-15 06:09] VITALS: BP 131/71; PULSE 76; RESP 16; TEMP 37.2; O2SAT 98
[2017-08-15 07:31] VITALS: BP 127/75; PULSE 75; RESP 16; TEMP 37.1; O2SAT 98
--- NOTE | 2017-08-15 07:34 | P.PN_ITS ---
Subjective Date Patient Seen: 08/15/17 Time Patient Seen: 07:31 Interval history: Pt s/p ORIF with intermeduallry keiko for a Rt hip intertroch fx by Dr. Hanna. PD 2. Pt states pain is tolerable. Has been up with PT to the chair in his room. Plan is for the patient to be possibly d/c to [facility] tomorrow. Pt's family feels that they can not manage him at home at this time. Exam Vital Signs (past 8 hours): Vital Signs - 8 hr 3 08/14/17 23:40 08/15/17 06:09 Temperature 99.3 F 98.9 F Pulse Rate 82 76 Respiratory Rate 16 16 Blood Pressure 126/68 H 131/71 H Pulse Oximetry 96 98 Pulse Oximetry 98 Oxygen Delivery Method Room Air Oxygen Flow Rate 0 Narrative Exam Narrative: Pt alert and oriented x3. Lying in bed. Appears comfortable. Paulino calves soft and nontender. NV status intact. Objective Labs Result Diagrams: 08/13/17 05:16 08/15/17 05:08 Labs: Laboratory Results - last 24 hr 08/15/17 05:08 Sodium 126 L Potassium 4.4 Chloride 93 L Carbon Dioxide 24 BUN 12 Creatinine 0.80 Estimated GFR > 60.0 BUN/Creatinine Ratio 15.0 Glucose 96 Calcium 8.3 L Assessment & Plan Post-op (1) Femur fracture, right: Problem details: S/P ORIF RT Femur intertrochanteric fx. Pt to continue PT. Plan to D/C to [facility] tomorrow. Qualifiers: Encounter type: initial encounter Femur location: intertrochanteric Fracture alignment: displaced Fracture healing: Fracture morphology: Fracture type: closed Open fracture type: Salter-White Fracture Type: Qualified Code(s): S72.141A - Displaced intertrochanteric fracture of right femur, initial encounter for closed fracture Current Visit: Yes Status: Acute Postoperative Procedures Operation Date: 08/13/17 09:30 Actual Procedures Side Surgeon p ORIF Hip/Intramedullary Hip Screw Rock Hanna MD Time Spent With Patient less than 15 minutes Quality VTE Deep Vein Thrombosis/Pulmonary Embolism Present on Admission: Yes
--- NOTE | 2017-08-15 07:54 | PM.PN.1 ---
Subjective Date Patient Seen: 08/15/17 Time Patient Seen: 07:54 Interval history: Patient overall feeling pretty good. Did get up to chair yesterday. Otherwise has not been mobilizing very much. Pain is well controlled. No chest pain shortness of breath or other changes. Feeling well. Exam Vital Signs (past 8 hours): Vital Signs - 8 hr 08/15/17 06:09 08/15/17 07:31 Temperature 98.9 F 98.7 F Pulse Rate 76 75 Respiratory Rate 16 16 Blood Pressure 131/71 H 127/75 H Pulse Oximetry 98 98 Pulse Oximetry 98 Oxygen Delivery Method Room Air Oxygen Flow Rate 0 Narrative Exam Narrative: Alert elderly male in no acute distress. Lungs are clear. Heart regular rate and rhythm. Abdomen is soft positive bowel sounds nontender. Extremities no cyanosis clubbing or edema. Objective Labs Result Diagrams: 08/13/17 05:16 08/15/17 05:08 Labs: Laboratory Results - last 24 hr 08/15/17 05:08 Sodium 126 L Potassium 4.4 Chloride 93 L Carbon Dioxide 24 BUN 12 Creatinine 0.80 Estimated GFR > 60.0 BUN/Creatinine Ratio 15.0 Glucose 96 Calcium 8.3 L Assessment & Plan Plan: Plan: Hyponatremia. Not much below baseline. Patient not receiving any IV use at this time. Will re-evaluate in a.m. but suspect not a significant problem. Hypertension. Blood pressure looks good. Follow-up a.m.. Continue current medicine. Right hip fracture day 1 status post surgery. Seems to be doing well pain well controlled as per orthopedist. Disposition will continue PT in observation today. Re-evaluate but expect discharge to [facility] tomorrow. Quality VTE Deep Vein Thrombosis/Pulmonary Embolism Present on Admission: Yes
--- NOTE | 2017-08-15 07:58 | P.PN_ITS ---
Subjective Date Patient Seen: 08/15/17 Time Patient Seen: 07:54 Interval history: Patient overall feeling pretty good. Did get up to chair yesterday. Otherwise has not been mobilizing very much. Pain is well controlled. No chest pain shortness of breath or other changes. Feeling well. Exam Vital Signs (past 8 hours): Vital Signs - 8 hr 3 08/15/17 06:09 08/15/17 07:31 Temperature 98.9 F 98.7 F Pulse Rate 76 75 Respiratory Rate 16 16 Blood Pressure 131/71 H 127/75 H Pulse Oximetry 98 98 Pulse Oximetry 98 Oxygen Delivery Method Room Air Oxygen Flow Rate 0 Narrative Exam Narrative: Alert elderly male in no acute distress. Lungs are clear. Heart regular rate and rhythm. Abdomen is soft positive bowel sounds nontender. Extremities no cyanosis clubbing or edema. Objective Labs Result Diagrams: 08/13/17 05:16 08/15/17 05:08 Labs: Laboratory Results - last 24 hr 08/15/17 05:08 Sodium 126 L Potassium 4.4 Chloride 93 L Carbon Dioxide 24 BUN 12 Creatinine 0.80 Estimated GFR > 60.0 BUN/Creatinine Ratio 15.0 Glucose 96 Calcium 8.3 L Assessment & Plan Plan: Plan: Hyponatremia. Not much below baseline. Patient not receiving any IV use at this time. Will re-evaluate in a.m. but suspect not a significant problem. Hypertension. Blood pressure looks good. Follow-up a.m.. Continue current medicine. Right hip fracture day 1 status post surgery. Seems to be doing well pain well controlled as per orthopedist. Disposition will continue PT in observation today. Re-evaluate but expect discharge to [facility] tomorrow. Quality VTE Deep Vein Thrombosis/Pulmonary Embolism Present on Admission: Yes
[2017-08-15] MEDS: LISINOPRIL 20 MG TABLET PO ×2 (09:18→22:06)
[2017-08-15] MEDS: ASPIRIN EC 81 MG TABLET PO ×2 (09:18→22:06)
--- NOTE | 2017-08-15 10:16 | PT.IPTN ---
Current Diagnoses Displaced intertrochanteric fracture of right femur, initial encounter for closed fracture (08/12/17) Surgery Performed Operation Date: 08/13/17 09:30 Actual Procedures p ORIF Hip/Intramedullary Hip Screw - Rock Hanna MD Physical Therapy Treatment Note M2 PT-IP Current Condition Start: 08/14/17 07:40 Freq: NEEDED Status: Active Protocol: Document 08/14/17 08:52 RS (Rec: 08/14/17 08:59 RS [email or web address]) Physical Therapy Current Condition Current Condition Evaluation Date 08/14/17 Treatment Diagnosis impaired mobility s/p R femur fracture w/ CRIF Weight Bearing Status Weight Bearing Status Weight Bear as Tolerated M3 PT-IP Subjective Start: 08/14/17 07:40 Freq: NEEDED Status: Active Protocol: Document 08/15/17 10:06 AB (Rec: 08/15/17 10:16 AB [id number]) Subjective Physical Therapy Visit Type Type Treatment Note Visit Start Time 09:40 Visit Stop Time 10:03 Total Visit Minutes 23 Number of CENTRIFUGAL STATION OPERATOR Visits 0 Physical Therapy Visit Comments Patient Comments pt agreeable to do therapy; stated he just did his LE exercises with her daughters assisting him Therapy Pain Assessment Pain When Pain Assessed During Mobility Pain Present Pain Present Pain Reported Location Right Hip Intensity 2 Scale Used Numeric (1 - 10) Pain Management Techniques Apply Cold Timing of Activity with Medications M4 PT-IP Mobility and Gait Start: 08/14/17 07:40 Freq: NEEDED Status: Active Protocol: Document 08/15/17 10:06 AB (Rec: 08/15/17 10:16 AB [id number]) PT-Bed Mobility Assessment Supine to Sit Supine to Sit Maximum Assistance PT-Transfer Assessment Sit to and From Stand Sit to and from Stand Minimal Assistance Equipment Transfer Assistive Device Gait Belt Front Wheeled Walker Gait Assessment Gait Gait Assistance Required: Moderate Assistance Distance (Feet) (feet) 20 Able to Maintain Weight Bearing Status Yes During Gait Assistive Devices Assistive Device Gait Belt Front Wheeled Walker Gait Deviations General Gait Pattern Antalgic Decreased Stride Length Decreased Feet Clearance Step-to Gait Factors Limiting Gait Function Factors Limiting Gait Function Decreased Activity Tolerance Decreased Strength Pain Poor Balance Poor Safety Awareness Comments Gait Comments pt with bilateral genu valgum with LLE shorter than RLE with increase knee flexion on R during standing. pt required cues for weight bearing, quad activation and maneuvering of FWW during ambulation. M5 PT-IP Objective Assessments Start: 08/14/17 07:40 Freq: NEEDED Status: Active Protocol: Document 08/14/17 08:52 RS (Rec: 08/14/17 08:59 RS [email or web address]) Orientation Orientation/Cognition Level of Alertness Alert Orientation Name Age Birthday Month Date Year Day of Week Place Situation Language Function Ability No Deficits Noted Safety Awareness Understands Safety Issues Memory Description No Deficits Noted Gross Range of Motion Upper Extremity ROM Assessment Within Functional Limits Lower Extremity ROM Assessment Right Impaired Impairments pt does not tolerate much movement (active or passive) in the RLE due to pain. Pt also with a previous R knee injury. Strength Upper Extremity Strength Assessment Within Functional Limits Comments Strength Comments strength not formally tested, but RLE seems to have significant pain related weakness. M6 PT-IP Treatment Start: 08/14/17 07:40 Freq: NEEDED Status: Active Protocol: Document 08/14/17 12:40 CLB (Rec: 08/14/17 13:54 CLB [email or web address]) Physical Therapy Treatment Education Post-Op Education Weight Bearing Status Post-Op Packet Safety Other Treatments Other Treatment Performed Standing weight shifts M7 PT-IP Assessment and Plan Start: 08/14/17 07:40 Freq: NEEDED Status: Active Protocol: Document 08/15/17 10:06 AB (Rec: 08/15/17 10:16 AB [id number]) PT Summary Assessment and Plan Potential Rehabilitation Potential Fair Summary Impairments Pain ROM Strength Balance Coordination Bed Mobility Transfers Gait Activity Tolerance Progress Towards Goals Slow Progress due to Pain Slow Progress due to Activity Tolerance Assessment Summary pt requiring max A with bed mobility and mod A for ambulation . pt presents with decrease activity tolerance affecting mobility. pt will require SNF rehab to improve function prior to d/c home. Goals Bed Mobility Goal Minimal Assistance Transfer Goal Contact Guard Assistance Front Wheeled Walker Gait Goal Contact Guard Assistance Front Wheel Walker Gait Distance 50 Frequency of Treatment Frequency Of Treatment Twice a Day Treatment Plan Physical Therapy Treatment Plan Bed Mobility Training Transfer Training Gait Training Therapeutic Exercise Post Op Education Discharge Planning Other Recommendations and Next Treatment ambulation, bed mobility Focus Recommendations To Nursing Amount of Assist Needed 1 Person Assist Discharge Recommendations PT Discharge Recommendations SNF Rehab
--- NOTE | 2017-08-15 10:23 | PC.NURSE ---
Day shift: A&Ox3. [place]. IV site failed and it was removed. PA notified and awaiting an answer if he needs the access. OK to d/c IV per PA. Rt hip[ dressing is CDI. Tolerated calf SCD's. Uses urinal. Encouraged to drink fluids. No c/o pain. Tolerating working w/ PT today. Uses call light proper and agrees to not get OOB w/o help from staff.
[2017-08-15 11:00] VITALS: BP 108/61; PULSE 80; RESP 18; TEMP 36.7; O2SAT 98
--- NOTE | 2017-08-15 14:56 | PT.IPTN ---
Current Diagnoses Displaced intertrochanteric fracture of right femur, initial encounter for closed fracture (08/12/17) Surgery Performed Operation Date: 08/13/17 09:30 Actual Procedures p ORIF Hip/Intramedullary Hip Screw - Rock Hanna MD Physical Therapy Treatment Note M2 PT-IP Current Condition Start: 08/14/17 07:40 Freq: NEEDED Status: Active Protocol: Document 08/14/17 08:52 RS (Rec: 08/14/17 08:59 RS [email or web address]) Physical Therapy Current Condition Current Condition Evaluation Date 08/14/17 Treatment Diagnosis impaired mobility s/p R femur fracture w/ CRIF Weight Bearing Status Weight Bearing Status Weight Bear as Tolerated M3 PT-IP Subjective Start: 08/14/17 07:40 Freq: NEEDED Status: Active Protocol: Document 08/15/17 14:51 AB (Rec: 08/15/17 14:56 AB [id number]) Subjective Physical Therapy Visit Type Type Treatment Note Visit Start Time 13:32 Visit Stop Time 13:48 Total Visit Minutes 15 Number of DIRECTOR OF PHARMACY Visits 0 Physical Therapy Visit Comments Patient Comments pt agreeable to do therapy Therapy Pain Assessment Pain When Pain Assessed During Mobility Pain Present Pain Present Pain Reported Location Right Hip Intensity 2 M4 PT-IP Mobility and Gait Start: 08/14/17 07:40 Freq: NEEDED Status: Active Protocol: Document 08/15/17 14:51 AB (Rec: 08/15/17 14:56 AB [id number]) PT-Bed Mobility Assessment Supine to Sit Supine to Sit Maximum Assistance Sit to Supine Sit to Supine Maximum Assistance PT-Transfer Assessment Sit to and From Stand Sit to and from Stand Maximum Assistance 1 Person Assistance Gait Assessment Gait Gait Assistance Required: Moderate Assistance Distance (Feet) (feet) 20 Able to Maintain Weight Bearing Status Yes During Gait Assistive Devices Assistive Device Gait Belt Front Wheeled Walker Orthotic/Prosthetic Devices or Brace: No Gait Deviations General Gait Pattern Antalgic Decreased Stride Length Decreased Feet Clearance Step-to Gait Factors Limiting Gait Function Factors Limiting Gait Function Decreased Activity Tolerance Decreased Strength Limited Range of Motion Pain Poor Balance Poor Safety Awareness M5 PT-IP Objective Assessments Start: 08/14/17 07:40 Freq: NEEDED Status: Active Protocol: Document 08/14/17 08:52 RS (Rec: 08/14/17 08:59 RS [email or web address]) Orientation Orientation/Cognition Level of Alertness Alert Orientation Name Age Birthday Month Date Year Day of Week Place Situation Language Function Ability No Deficits Noted Safety Awareness Understands Safety Issues Memory Description No Deficits Noted Gross Range of Motion Upper Extremity ROM Assessment Within Functional Limits Lower Extremity ROM Assessment Right Impaired Impairments pt does not tolerate much movement (active or passive) in the RLE due to pain. Pt also with a previous R knee injury. Strength Upper Extremity Strength Assessment Within Functional Limits Comments Strength Comments strength not formally tested, but RLE seems to have significant pain related weakness. M6 PT-IP Treatment Start: 08/14/17 07:40 Freq: NEEDED Status: Active Protocol: Document 08/14/17 12:40 CLB (Rec: 08/14/17 13:54 CLB [email or web address]) Physical Therapy Treatment Education Post-Op Education Weight Bearing Status Post-Op Packet Safety Other Treatments Other Treatment Performed Standing weight shifts M7 PT-IP Assessment and Plan Start: 08/14/17 07:40 Freq: NEEDED Status: Active Protocol: Document 08/15/17 14:51 AB (Rec: 08/15/17 14:56 AB [id number]) PT Summary Assessment and Plan Potential Rehabilitation Potential Fair Summary Impairments Pain ROM Strength Balance Bed Mobility Transfers Gait Activity Tolerance Progress Towards Goals Slow Progress due to Pain Slow Progress due to Activity Tolerance Assessment Summary pt improving slowly but continues to require max A with mobility. pt will require SNF rehab to improve function prior to d/c home. Goals Bed Mobility Goal Minimal Assistance Transfer Goal Contact Guard Assistance Front Wheeled Walker Gait Goal Contact Guard Assistance Front Wheel Walker Gait Distance 50 Frequency of Treatment Frequency Of Treatment Twice a Day Treatment Plan Physical Therapy Treatment Plan Bed Mobility Training Transfer Training Gait Training Therapeutic Exercise Post Op Education Discharge Planning Other Recommendations and Next Treatment ambulation, bed mobility Focus Recommendations To Nursing Amount of Assist Needed 1 Person Assist Discharge Recommendations PT Discharge Recommendations SNF Rehab
[2017-08-15 16:14] VITALS: BP 134/75; PULSE 84; RESP 18; TEMP 37.3; O2SAT 98
[2017-08-15 20:17] VITALS: BP 124/68; PULSE 73; RESP 18; TEMP 36.9; O2SAT 99
[2017-08-15 23:20] VITALS: BP 125/76; PULSE 75; RESP 18; TEMP 36.4; O2SAT 96
[2017-08-16 04:30] VITALS: BP 137/79; PULSE 70; RESP 18; TEMP 36.6; O2SAT 95
[2017-08-16 06:05] LABS: BUN Creatinine Ratio 21.4 (6-22); Blood Urea Nitrogen 15 mg/dL (9-20); Calcium 8.4 mg/dL (8.4-10.2); Carbon Dioxide 24 mmol/L (22-32); Chloride 93 mmol/L (98-107); Estimated Glomerular Filt Rate > 60.0 mL/min (>60); Glucose 95 mg/dL (80-110); HEMOLYSIS < 15 (0-50); Potassium 4.3 mmol/L (3.4-5.1); Sodium 125 mmol/L (137-145)
[2017-08-16 07:50] VITALS: BP 154/86; PULSE 82; RESP 16; TEMP 36.4; O2SAT 99
--- NOTE | 2017-08-16 07:55 | PM.PNPO.1 ---
Subjective Date Patient Seen: 08/16/17 Time Patient Seen: 07:55 Interval history: POD #3 status post ORIF intermedullary nail right hip intertroch fracture with Dr. Hanna. His pain is well controlled. He has been max assist with PT, weight-bearing as tolerated. Discharge plan is to [facility] possibly today. Exam Vital Signs (past 8 hours): Vital Signs - 8 hr 08/16/17 04:30 Temperature 97.8 F Pulse Rate 70 Respiratory Rate 18 Blood Pressure 137/79 H Pulse Oximetry 95 Pulse Oximetry 95 Oxygen Delivery Method Room Air Oxygen Flow Rate 0 Narrative Exam Narrative: Patient is sitting up in bed in no acute distress. He is alert and oriented x3. Dressing on right hip is CDI. Calves are soft, compressible, nontender bilaterally. Sensation intact light touch throughout bilateral lower extremities. Pulses are symmetrical. Objective Labs Result Diagrams: 08/13/17 05:16 08/16/17 05:10 Labs: Laboratory Results - last 24 hr 08/16/17 05:10 Sodium 125 L Potassium 4.3 Chloride 93 L Carbon Dioxide 24 BUN 15 Creatinine 0.70 Estimated GFR > 60.0 BUN/Creatinine Ratio 21.4 Glucose 95 Calcium 8.4 Assessment & Plan Post-op (1) Femur fracture, right: Problem details: S/P ORIF RT Femur intertrochanteric fx. Pt to continue PT. Plan to D/C to [facility] possibly today. Qualifiers: Encounter type: initial encounter Femur location: intertrochanteric Fracture alignment: displaced Fracture healing: Fracture morphology: Fracture type: closed Open fracture type: Salter-White Fracture Type: Qualified Code(s): S72.141A - Displaced intertrochanteric fracture of right femur, initial encounter for closed fracture Current Visit: Yes Status: Acute (2) S/P ORIF (open reduction internal fixation) fracture: Current Visit: Yes Status: Acute Postoperative Procedures Operation Date: 08/13/17 09:30 Actual Procedures Side Surgeon p ORIF Hip/Intramedullary Hip Screw Rock Hanna MD Time Spent With Patient less than 15 minutes Quality VTE Deep Vein Thrombosis/Pulmonary Embolism Present on Admission: Yes
--- NOTE | 2017-08-16 07:59 | P.PN_ITS ---
Subjective Date Patient Seen: 08/16/17 Time Patient Seen: 07:55 Interval history: POD #3 status post ORIF intermedullary nail right hip intertroch fracture with Dr. Hanna. His pain is well controlled. He has been max assist with PT, weight-bearing as tolerated. Discharge plan is to [facility] possibly today. Exam Vital Signs (past 8 hours): Vital Signs - 8 hr 3 08/16/17 04:30 Temperature 97.8 F Pulse Rate 70 Respiratory Rate 18 Blood Pressure 137/79 H Pulse Oximetry 95 Pulse Oximetry 95 Oxygen Delivery Method Room Air Oxygen Flow Rate 0 Narrative Exam Narrative: Patient is sitting up in bed in no acute distress. He is alert and oriented x3. Dressing on right hip is CDI. Calves are soft, compressible, nontender bilaterally. Sensation intact light touch throughout bilateral lower extremities. Pulses are symmetrical. Objective Labs Result Diagrams: 08/13/17 05:16 08/16/17 05:10 Labs: Laboratory Results - last 24 hr 08/16/17 05:10 Sodium 125 L Potassium 4.3 Chloride 93 L Carbon Dioxide 24 BUN 15 Creatinine 0.70 Estimated GFR > 60.0 BUN/Creatinine Ratio 21.4 Glucose 95 Calcium 8.4 Assessment & Plan Post-op (1) Femur fracture, right: Problem details: S/P ORIF RT Femur intertrochanteric fx. Pt to continue PT. Plan to D/C to [facility] possibly today. Qualifiers: Encounter type: initial encounter Femur location: intertrochanteric Fracture alignment: displaced Fracture healing: Fracture morphology: Fracture type: closed Open fracture type: Salter-White Fracture Type: Qualified Code(s): S72.141A - Displaced intertrochanteric fracture of right femur, initial encounter for closed fracture Current Visit: Yes Status: Acute (2) S/P ORIF (open reduction internal fixation) fracture: Current Visit: Yes Status: Acute Postoperative Procedures Operation Date: 08/13/17 09:30 Actual Procedures Side Surgeon p ORIF Hip/Intramedullary Hip Screw Rock Hanna MD Time Spent With Patient less than 15 minutes Quality VTE Deep Vein Thrombosis/Pulmonary Embolism Present on Admission: Yes
[2017-08-16] MEDS: OXYCODONE IR 10 MG TABLET PO ×2 (08:04→12:00)
[2017-08-16] MEDS: LISINOPRIL 20 MG TABLET PO (08:08)
[2017-08-16] MEDS: ASPIRIN EC 81 MG TABLET PO (08:08)
--- NOTE | 2017-08-16 09:15 | PM.DS.1 ---
History of Present Illness Chief complaint: Fall / R Hip Pain Narrative: See H&P Discharge Providers Date of admission: 08/12/17 17:16 Primary care physician: Evan Majano MD Consults: Orthopedics 08/13/17 13:07 Consult to Discharge Planning Routine Comment: Consult to Physical Therapy Evaluate & Treat Comment: Physician Instructions: Evaluate and Treat Consult to Respiratory Therapy Evaluate & Treat Comment: Physician Instructions: Evaluate and treat Discharge provider: Evan Majano MD Summary Discharge Diagnosis: Hip fracture Hypertension Hyponatremia Hospital Course: Underwent a open reduction and internal fixation after admission. Work with physical therapy saw improved ambulation. Somewhat low sodium but this was felt consistent with history and not treated aggressively. Usual medications. Status at Discharge Functional status at discharge: uses cane/walker Overall status at discharge: patient is progressing back to baseline Time Spent with Patient Less than 30 minutes Exam Vital Signs (past 8 hours): Vital Signs - 8 hr 08/16/17 04:30 08/16/17 07:50 Temperature 97.8 F 97.5 F L Pulse Rate 70 82 Respiratory Rate 18 16 Blood Pressure 137/79 H 154/86 H Pulse Oximetry 95 99 Pulse Oximetry 99 Oxygen Delivery Method Room Air Oxygen Flow Rate 0 Narrative Exam Narrative: Sitting up in a chair in no apparent distress family is nearby. HEENT unremarkable neck is benign chest is clear heart regular without murmur abdomen soft nontender extremities benign except hip shows some tenderness no edema intact pulses neurologically nonfocal. Objective Labs Result Diagrams: 08/13/17 05:16 08/16/17 05:10 Labs: Laboratory Results - last 24 hr 08/16/17 05:10 Sodium 125 L Potassium 4.3 Chloride 93 L Carbon Dioxide 24 BUN 15 Creatinine 0.70 Estimated GFR > 60.0 BUN/Creatinine Ratio 21.4 Glucose 95 Calcium 8.4 Discharge Plan Discharge Plan Patient Disposition: SNF Transfer to: [facility] Under care of provider: Gretel Transportation: Wheelchair Labs: cbc,bmp on monday 08/21 Consult as needed: Dental, Hearing, Mental health, Podiatry and Vision I certify the postop hospital usp care is medically necessary on a continuing basis for any conditions for which he/ she received care during this hospitalization.: Yes The receiving facility has agreed to accept transfer and provide medical treatment.: Yes Discharge Health Status Brief summary of current health status: recovering from surgery Multidrug resistant organism: No MDRO MDRO Verified by culture: Yes Precautions: [place] Provider Discharge Instructions Diet: Diet as Tolerated and Regular Liquid consistency: Normal/Thin Food texture: Regular Activity: as tolerated Wound Care Report to your healthcare provider any signs of infection, such as:: chills, fever, night sweats, increased pain and unusual drainage Dressing: per ortho Other wound treatment: per ortho [facility] Reason for rehabilitation: Post-operative therapy Rehab type: Physical therapy and Occupational therapy Discharge Data Primary Care Provider: Evan Majano Attending Provider: Turner Marroquin Admit Date/Time: 08/12/17 17:16 Quality VTE Deep Vein Thrombosis/Pulmonary Embolism Present on Admission: Yes
--- NOTE | 2017-08-16 10:37 | PT.IPTN ---
Current Diagnoses Displaced intertrochanteric fracture of right femur, initial encounter for closed fracture (08/12/17) Personal history of (healed) traumatic fracture (08/12/17) Presence of other bone and tendon implants (08/12/17) Surgery Performed Operation Date: 08/13/17 09:30 Actual Procedures p ORIF Hip/Intramedullary Hip Screw - Rock Hanna MD Physical Therapy Treatment Note M2 PT-IP Current Condition Start: 08/14/17 07:40 Freq: NEEDED Status: Active Protocol: Document 08/14/17 08:52 RS (Rec: 08/14/17 08:59 RS [id number]) Physical Therapy Current Condition Current Condition Evaluation Date 08/14/17 Treatment Diagnosis impaired mobility s/p R femur fracture w/ CRIF Weight Bearing Status Weight Bearing Status Weight Bear as Tolerated M3 PT-IP Subjective Start: 08/14/17 07:40 Freq: NEEDED Status: Active Protocol: Document 08/16/17 09:40 GGD (Rec: 08/16/17 10:37 GGD [id number]) Subjective Physical Therapy Visit Type Type Treatment Note Visit Start Time 09:15 Visit Stop Time 09:40 Total Visit Minutes 25 Number of IT APPLICATIONS MANAGER Visits 1 Physical Therapy Visit Comments Patient Comments Pt willing to walk, up to chair with NSG. Therapy Pain Assessment Pain When Pain Assessed At Rest Pain Present Pain Present Pain Reported Location Right Hip Intensity 2 Scale Used Numeric (1 - 10) M4 PT-IP Mobility and Gait Start: 08/14/17 07:40 Freq: NEEDED Status: Active Protocol: Document 08/16/17 09:40 GGD (Rec: 08/16/17 10:37 GGD [id number]) PT-Transfer Assessment Sit to and From Stand Sit to and from Stand Contact Guard Assistance 1 Person Assistance Use of Upper Extremities Equipment Transfer Assistive Device Gait Belt Front Wheeled Walker Gait Assessment Gait Gait Assistance Required: Contact Guard Assist 1 Person Assist Distance (Feet) (feet) 35 Able to Maintain Weight Bearing Status Yes During Gait Assistive Devices Assistive Device Gait Belt Front Wheeled Walker Gait Deviations General Gait Pattern Antalgic Decreased Stride Length Decreased Feet Clearance Step-to Gait Factors Limiting Gait Function Factors Limiting Gait Function Decreased Activity Tolerance Decreased Strength Limited Range of Motion Pain Poor Balance M6 PT-IP Treatment Start: 08/14/17 07:40 Freq: NEEDED Status: Active Protocol: Document 08/16/17 09:40 GGD (Rec: 08/16/17 10:37 GGD [id number]) Physical Therapy Treatment Exercises Exercises Gluteal Sets Quad Sets M7 PT-IP Assessment and Plan Start: 08/14/17 07:40 Freq: NEEDED Status: Active Protocol: Document 08/16/17 09:40 GGD (Rec: 08/16/17 10:37 GGD [id number]) PT Summary Assessment and Plan Summary Assessment Summary Pt improving with sit to stand and gait tolerance. He had a slow step to gait pattern. He need cues for all mobiliy. Frequency of Treatment Frequency Of Treatment Twice a Day Treatment Plan Physical Therapy Treatment Plan Bed Mobility Training Transfer Training Gait Training Therapeutic Exercise Post Op Education Discharge Planning Other Recommendations and Next Treatment ambulation, bed mobility Focus Recommendations To Nursing Amount of Assist Needed 1 Person Assist Discharge Recommendations PT Discharge Recommendations SNF Rehab
--- NOTE | 2017-08-16 14:37 | CM.DPNOTE ---
DCP/Continued: Received notification this AM that patient is medically stable to d/c to SNF today. Met with patient to confirm plan to d/c to [facility]. Patient continues to be aware and agreeable. MID WIFE asked JOSE ANGEL/Raisa to coordinate d/c arrangements. RN will notify family. P: [facility] today. CRISTI Rai
== END 2017-08-16 14:50 | DRG 481 ==
LOC: ED 14:26 → AC 17:18
PROVIDERS: Orthopaedic Surgery Orthopaedic Surgery of the Spine; Admitting Provider Family Medicine; Emergency Provider Internal Medicine; PCP Family Medicine; Visit Provider Family Medicine
PROC: 0QS606Z Reposition Right Upper Femur with Intramedullary Internal Fixation Device, Open Approach (ICD-10-PCS; principal; 2017-08-13 09:30)
DX: S72.141A Displaced intertrochanteric fracture of right femur, initial encounter for closed fracture (principal); E87.1 Hypo-osmolality and hyponatremia; W10.9XXA Fall (on) (from) unspecified stairs and steps, initial encounter; I10 Essential (primary) hypertension; Z87.891 Personal history of nicotine dependence
CPT/HCPCS: 36415; 73502; 76001; 80048; 85025; 85610; 85730; 93005; 97110; 97116; 97162; 97530; 99284; 99285; J2704

== ENCOUNTER → 2017-10-27 07:55 | Outpatient (CLI) | payer MEDICARE, SELFPAY ==
[2017-08-12 18:47] VITALS: BMI 31.5
--- NOTE | 2017-10-27 08:03 | DI.RAD.S_ITS ---
PROCEDURE: XR KNEE RT 3V INDICATIONS: Right KNEE PAIN TECHNIQUE: 3 views of the knee were acquired. COMPARISON: None. FINDINGS: Bones: No fractures or dislocations. No suspicious bony lesions. Degenerative joint disease is evident in all 3 compartments, most marked medially. Soft tissues: Moderate joint effusion. No suspicious soft tissue calcifications. IMPRESSION: 1. Moderately large joint effusion. 2. Tricompartmental osteoarthritis, most marked medially. Dictated by: Ion Kovacs M.D. on 10/27/2017 at 8:31 Approved by: Ion Kovacs M.D. on 10/27/2017 at 8:32
[2017-10-27 10:12] LABS: Add Manual Diff / Slide Review NO; Basophils Percent Auto 2.1 % (0-2); Eosinophils Percent Auto 2.4 % (2-4); Hematocrit 43.5 % (41-53); Hemoglobin 14.8 g/dL (13.5-17.5); Lymphocytes Percent Auto 31.2 % (25-40); Mean Corpuscular HGB Conc 34.1 % (30-36); Mean Corpuscular Hemoglobin 29.7 PG (26-34); Mean Corpuscular Volume 87.1 fL (80-100); Monocytes Percent Auto 9.2 % (3-14); Neutrophils Absolute Auto 3500 /uL (3000-5900); Neutrophils Percent Auto 55.1 % (50-75); Platelet Count 253 X10^3/uL (150-400); Red Cell Distribution Width 13.6 % (11.6-14.8); White Blood Cell Count 6.3 X10^3/uL (4.5-11.0)
[2017-10-27 10:24] LABS: Alanine Aminotransferase 17 IU/L (21-72); Albumin 4.4 g/dL (3.5-5.0); Albumin Globulin Ratio 1.6 (1.0-2.8); Alkaline Phosphatase 70 U/L (38-126); Aspartate Aminotransferase 18 IU/L (17-59); BUN Creatinine Ratio 15.7 (6-22); Bilirubin Total 0.8 mg/dL (0.2-1.3); Blood Urea Nitrogen 11 mg/dL (9-20); Calcium 9.5 mg/dL (8.4-10.2); Carbon Dioxide 29 mmol/L (22-32); Chloride 96 mmol/L (98-107); Cholesterol 180 mg/dL (140-199); Estimated Glomerular Filt Rate > 60.0 mL/min (>60); Globulin 2.7 g/dL (1.7-4.1); Glucose 97 mg/dL (80-110); HDL Cholesterol 61 mg/dL (40-60); HEMOLYSIS < 15 (0-50); LDL Cholesterol Calculated 107 mg/dL (<100); Potassium 4.2 mmol/L (3.4-5.1); Sodium 134 mmol/L (137-145); Total Protein 7.1 g/dL (6.3-8.2); Triglycerides 60 mg/dL (35-150)
== END ==
PROVIDERS: PCP Internal Medicine; Visit Provider Internal Medicine
DX: M17.11 Unilateral primary osteoarthritis, right knee (principal); M25.461 Effusion, right knee; M25.561 Pain in right knee; I10 Essential (primary) hypertension
CPT/HCPCS: 36415; 73562; 80053; 80061; 85025

== ENCOUNTER → 2019-01-25 07:41 | Outpatient (CLI) | payer MEDICARE, SELFPAY ==
[2017-08-12 18:47] VITALS: BMI 31.5
[2019-01-25 08:54] LABS: Add Manual Diff / Slide Review NO; Basophils Absolute Auto 200 /uL (0-100); Basophils Percent Auto 2.2 % (0-2); Eosinophils Absolute Auto 300 /uL (0-450); Eosinophils Percent Auto 3.5 % (2-4); Hematocrit 44.7 % (41-53); Hemoglobin 15.5 g/dL (13.5-17.5); Lymphocytes Absolute Auto 2500 /uL (1100-4500); Lymphocytes Percent Auto 31.2 % (25-40); Mean Corpuscular HGB Conc 34.6 % (30-36); Mean Corpuscular Hemoglobin 30.8 PG (26-34); Mean Corpuscular Volume 88.9 fL (80-100); Monocytes Absolute Auto 800 /uL (0-900); Monocytes Percent Auto 10.2 % (3-14); Neutrophils Absolute Auto 4200 /uL (1500-7000); Neutrophils Percent Auto 52.9 % (50-75); Platelet Count 268 X10^3/uL (150-400); Red Blood Cell Count 5.03 X10^6/uL (4.5-5.9); Red Cell Distribution Width 13.4 % (11.6-14.8); White Blood Cell Count 7.9 X10^3/uL (4.5-11.0)
[2019-01-25 09:25] LABS: Alanine Aminotransferase 12 IU/L (<50); Albumin 4.7 g/dL (3.5-5.0); Albumin Globulin Ratio 1.9 (1.0-2.8); Alkaline Phosphatase 56 U/L (38-126); Aspartate Aminotransferase 20 IU/L (17-59); BUN Creatinine Ratio 13.8 (6-22); Bilirubin Total 1.1 mg/dL (0.2-1.3); Blood Urea Nitrogen 11 mg/dL (9-20); Calcium 10.4 mg/dL (8.4-10.2); Carbon Dioxide 29 mmol/L (22-32); Chloride 95 mmol/L (98-107); Cholesterol 197 mg/dL (140-199); Estimated Glomerular Filt Rate > 60.0 mL/min (>60); Globulin 2.5 g/dL (1.7-4.1); Glucose 92 mg/dL (80-110); HDL Cholesterol 62 mg/dL (40-60); HEMOLYSIS < 15 (0-50); LDL Cholesterol Calculated 120 mg/dL (<100); Sodium 132 mmol/L (137-145); Total Protein 7.2 g/dL (6.3-8.2); Triglycerides 74 mg/dL (35-150)
[2019-01-25 09:26] LABS: Potassium 5.7 mmol/L (3.4-5.1)
== END ==
PROVIDERS: PCP Internal Medicine; Visit Provider Internal Medicine
DX: I10 Essential (primary) hypertension (principal); M15.0 Primary generalized (osteo)arthritis
CPT/HCPCS: 36415; 80053; 80061; 85025

== ENCOUNTER → 2019-02-26 12:55 | Outpatient (CLI) | payer MEDICARE, SELFPAY ==
[2017-08-12 18:47] VITALS: BMI 31.5
[2019-02-26 14:45] LABS: BUN Creatinine Ratio 13.3 (6-22); Blood Urea Nitrogen 12 mg/dL (9-20); Carbon Dioxide 28 mmol/L (22-32); Chloride 95 mmol/L (98-107); Estimated Glomerular Filt Rate > 60.0 mL/min (>60); Glucose 98 mg/dL (80-110); HEMOLYSIS < 15 (0-50); Potassium 4.7 mmol/L (3.4-5.1); Sodium 134 mmol/L (137-145)
== END ==
PROVIDERS: PCP Internal Medicine; Visit Provider Internal Medicine
DX: I10 Essential (primary) hypertension (principal)
CPT/HCPCS: 36415; 80048

== ENCOUNTER → 2019-06-29 14:33 | Outpatient (CLI) | payer MEDICARE, SELFPAY ==
[2017-08-12 18:47] VITALS: BMI 31.5
[2019-06-29 15:47] LABS: Influenza A - CEPHEID Flu A NEGATIVE (NEGATIVE); Influenza B - CEPHEID Flu B NEGATIVE (NEGATIVE)
[2019-07-01 03:36] LABS: COVID19 Sendout Not Detected (Not Detected)
== END ==
PROVIDERS: PCP Internal Medicine; Visit Provider Registered Nurse
DX: R05 Cough (principal)
CPT/HCPCS: 87502; 87635

== ENCOUNTER → 2021-08-25 09:18 | Outpatient (CLI) | payer MEDICARE, SELFPAY ==
[2017-08-12 18:47] VITALS: BMI 31.5
--- NOTE | 2021-08-25 | DI.RAD.S_ITS ---
PROCEDURE: XR LUMBAR SPINE 2-3V INDICATIONS: Other chronic pain TECHNIQUE: 3 views of the lumbar spine were acquired. COMPARISON: None. FINDINGS: Anterolisthesis L5 on S1 measuring 1.5 cm. No listhesis or malalignment otherwise. There is central superior endplate compression at L3. Vertebral body heights otherwise maintained. No suspicious lytic or blastic osseous lesion. Diffuse loss of disc height in the lumbar spine with associated degenerative endplate change and facet hypertrophy. There is suspected moderate to severe neural foraminal stenosis from L3-L4 through L5-S1. IMPRESSION: Grade 2 anterolisthesis of L5 on S1. Moderate degenerative changes in the lower lumbar spine with suspected moderate to severe neural foraminal stenosis from L3-L4 through L5-S1. Consider MRI. At L3, central superior endplate compression deformity may reflect a remote compression fracture. Acute component cannot be strictly excluded and would be best evaluated with cross-sectional imaging, if this is of clinical concern. Dictated by: Jerry Montiel M.D. on 08/25/2021 at 15:37 Approved by: Jerry Montiel M.D. on 08/25/2021 at 15:43
--- NOTE | 2021-08-25 | DI.RAD.S_ITS ---
PROCEDURE: XR HIP W PEL IF DONE RT 2V INDICATIONS: Other chronic pain TECHNIQUE: AP pelvis with lateral view(s) of the right hip(s). COMPARISON: [facility], , XR HIP W PEL IF DONE RT 2V, 08/13/2017, 11:06. FINDINGS: Short medullary kodi in the right femur with a diagonal dynamic hip screw. No acute complicating hardware feature identified. Fairly symmetric ymoh-qd-lvvcolmv osteoarthritic changes in both hips. Right greater than left sacroiliac joint osteophytosis and joint space narrowing. IMPRESSION: Ycps-jb-[id number] hip osteoarthritis. [id number]-[id number] right greater than left sacroiliac joint osteoarthritis. Dictated by: Jerry Montiel M.D. on 08/25/2021 at 15:45 Approved by: Jerry Montiel M.D. on 08/25/2021 at 15:48
--- NOTE | 2021-08-25 | DI.RAD.S_ITS ---
PROCEDURE: XR KNEE LT 3V INDICATIONS: Other chronic pain TECHNIQUE: 3 views of the knee were acquired. COMPARISON: None FINDINGS: Bones: No fractures or dislocations. No suspicious bony lesions. Chondrocalcinosis. At least moderate tricompartment degenerative arthritis. Soft tissues: No joint effusion. No suspicious soft tissue calcifications. IMPRESSION: At least moderate CPPD arthropathy. Dictated by: Remy Wheatley M.D. on 08/25/2021 at 16:10 Approved by: Remy Wheatley M.D. on 08/25/2021 at 16:10
== END ==
PROVIDERS: PCP Internal Medicine; Referring Provider Family Medicine; Visit Provider Family Medicine
DX: M25.551 Pain in right hip (principal); M25.562 Pain in left knee; G89.29 Other chronic pain; M43.17 Spondylolisthesis, lumbosacral region; M17.12 Unilateral primary osteoarthritis, left knee; M16.11 Unilateral primary osteoarthritis, right hip
CPT/HCPCS: 72100; 73502; 73562

== ENCOUNTER → 2021-10-14 08:39 | Outpatient (CLI) | payer OTHER, SELFPAY ==
[2017-08-12 18:47] VITALS: BMI 31.5
--- NOTE | 2021-10-14 | DI.MRI.S_ITS ---
PROCEDURE: MR LUMBAR SPINE WO CON INDICATIONS: Spondylosis, lumbar region;Sciatica, right side TECHNIQUE: Noncontrast sagittal T1 spin echo and T2 fast echo, sagittal STIR, and T2 fast spin echo through the lumbar spine. In cases with scoliosis, additional coronal T2 fast spin echo may be performed. COMPARISON: None. FINDINGS: Image quality: Excellent. Alignment and Curvature: Bilateral L5 pars defects associated with grade 2 anterior spondylolisthesis at L5-S1 Bone Marrow: Modic type 1 degenerative endplate changes noted at L5-S1. Acute L3 Schmorl's node noted with chronic L4 Schmorl's node as well. Spinal Cord: Conus medullaris terminates at the L1 level. Visualized cord demonstrates normal signal and size. Paraspinous Soft Tissues: No paravertebral masses. T12-L1: Normal appearance. L1-L2: Disc space narrowing with hypertrophic facet joints noted. Mild central stenosis. No foraminal stenosis. L2-L3: Disc space narrowing with circumferential disc bulge and hypertrophic facet joints results in mild central and moderate left foraminal stenosis. Mild right foraminal stenosis. L3-L4: Disc space narrowing with circumferential disc bulge and hypertrophic facet joints results in mild central stenosis. Moderate bilateral foraminal stenosis L4-L5: Disc space narrowing with hypertrophic facet joints and circumferential disc bulge results in moderate central stenosis. Moderate bilateral foraminal stenosis greater on the left. L5-S1: Disc space narrowing with grade 2 anterior spondylolisthesis and hypertrophic facet joints combine to result in severe central stenosis. Severe bilateral foraminal stenosis. IMPRESSION: Para Multilevel degenerative disc disease and arthropathy results in varying degrees of central and foraminal stenosis including severe central and bilateral foraminal stenosis at L5-S1. Grade 2 isthmic spondylolisthesis at L5-S1 Approved by: Chente Moss M.D. on 10/14/2021 at 16:12
== END ==
PROVIDERS: PCP Internal Medicine; Referring Provider Internal Medicine; Visit Provider Family Medicine
DX: M47.816 Spondylosis without myelopathy or radiculopathy, lumbar region (principal); M51.16 Intervertebral disc disorders with radiculopathy, lumbar region; M43.17 Spondylolisthesis, lumbosacral region; M48.07 Spinal stenosis, lumbosacral region; M48.061 Spinal stenosis, lumbar region without neurogenic claudication
CPT/HCPCS: 72148

== ENCOUNTER → 2022-10-19 12:14 | Outpatient (CLI) | payer OTHER, SELFPAY ==
[2017-08-12 18:47] VITALS: BMI 31.5
--- NOTE | 2022-10-19 12:22 | DI.RAD.S_ITS ---
PROCEDURE: XR ELBOW LT MIN 3V INDICATIONS: LEFT ELBOW PAIN, STATUS POST FALL TECHNIQUE: 3 views of the elbow were acquired. COMPARISON: None. FINDINGS: Bones: No fractures or dislocations. No suspicious bony lesions. Osteoarthritic changes of the elbow joint. Soft tissues: Elbow joint effusion is present. No suspicious soft tissue calcifications. IMPRESSION: Osseous irregularity along the posterior olecranon may represent a fracture. There is an associated elbow joint effusion which raises concern for an occult fracture. Recommend follow-up radiograph in 10-14 days or cross-sectional imaging. Dictated by: Keegan Villavicencio M.D. on 10/19/2022 at 16:14 Approved by: Keegan Villavicencio M.D. on 10/19/2022 at 16:17
== END ==
PROVIDERS: PCP Physician Assistant; Referring Provider Physician Assistant; Visit Provider Physician Assistant
DX: M25.522 Pain in left elbow (principal); M25.422 Effusion, left elbow
CPT/HCPCS: 73080

== ENCOUNTER → 2022-11-25 10:22 | Outpatient (CLI) | payer MEDICARE, SELFPAY ==
[2017-08-12 18:47] VITALS: BMI 31.5
--- NOTE | 2022-11-25 | DI.RAD.S_ITS ---
PROCEDURE: XR ELBOW LT 2V INDICATIONS: Pain in left elbow TECHNIQUE: 2 views of the elbow were acquired. COMPARISON: None. FINDINGS: Bones: No definite fracture. No dislocations. Moderate degenerative changes at the left elbow. No suspicious bony lesions. Soft tissues: No elbow joint effusion. No suspicious soft tissue calcifications. IMPRESSION: No definite fracture. Moderate degenerative changes at the left elbow. If clinical suspicion for occult injury is high, consider CT or MRI for further evaluation. Dictated by: William Morrison M.D. on 11/25/2022 at 13:44 Approved by: William Morrison M.D. on 11/25/2022 at 13:47
== END ==
PROVIDERS: PCP Physician Assistant; Referring Provider Physician Assistant; Visit Provider Physician Assistant
DX: M25.522 Pain in left elbow (principal)
CPT/HCPCS: 73070

== ENCOUNTER → 2024-03-03 12:01 | Outpatient (CLI) | payer MEDICARE, SELFPAY ==
[2017-08-12 18:47] VITALS: BMI 31.5
[2024-03-03 13:15] LABS: Influenza A - CEPHEID Flu A NEGATIVE (NEGATIVE); Influenza B - CEPHEID Flu B NEGATIVE (NEGATIVE); Respiratory Syncytial Virus Negative (Negative)
[2024-03-03 13:21] LABS: COVID-19 CEPHEID 4-PLEX PCR Negative (Negative)
== END ==
PROVIDERS: PCP Physician Assistant; Visit Provider Physician Assistant Surgical
DX: R05.1 Acute cough (principal)
CPT/HCPCS: 0241U

== ENCOUNTER → 2024-03-03 12:20 | Outpatient (CLI) | payer MEDICARE, SELFPAY ==
[2017-08-12 18:47] VITALS: BMI 31.5
--- NOTE | 2024-03-03 12:38 | DI.RAD.S_ITS ---
PROCEDURE: XR CHEST 2V INDICATIONS: Cough, SOB TECHNIQUE: 2 views of the chest were acquired. COMPARISON: None. FINDINGS: Surgical changes and devices: None. Lungs and pleura: There are diffuse patchy airspace opacities which are most prominent in the right lower lobe in which partially obscure the hemidiaphragm and cardiac silhouette. There is no effusion or pneumothorax. Mediastinum: Mediastinal contours are normal. Heart size is normal. Bones and chest wall: No suspicious bony abnormalities. Soft tissues appear unremarkable. IMPRESSION: Multifocal airspace opacity most prominent in the right lower lobe, concerning for pneumonia. Dictated by: Lisa Gonzalez M.D. on 03/03/2024 at 12:15 Approved by: Lisa Gonzalez M.D. on 03/03/2024 at 12:16
== END ==
LOC: RAD 12:22
PROVIDERS: PCP Physician Assistant; Referring Provider Physician Assistant Surgical; Visit Provider Physician Assistant Surgical
DX: R05.1 Acute cough (principal); R06.02 Shortness of breath
CPT/HCPCS: 0241U; 71046

== ENCOUNTER 2024-03-30 14:21 | Emergency (ER) | payer MEDICARE, SELFPAY ==
[2017-08-12 18:47] VITALS: BMI 31.5
[2024-03-30] VITALS (11 sets, daily range): BP systolic 136–168; BP diastolic 65–75; PULSE 62–81; RESP 13–23; TEMP 36.5–36.6; O2SAT 97–99; BMI 28.5
--- NOTE | 2024-03-30 14:30 | EKG_ITS ---
[address] [address] Test Date: 2024-03-30 Pat Name: Renan Pérez Department: Room: Gender: Male Ms Sql Dba: MARIO : 1935 Requested By: Order Number: [id number] Reading MD: Abdelrahman Sanchez MD Measurements Intervals [place] Rate: 64 P: 3 AR: 164 QRS: -12 QRSD: 106 T: 29 QT: 404 QTc: 416 Interpretive Statements Normal sinus rhythm Electronically Signed On 03-31-2024 8:47:58 PST by Abdelrahman Sanchez MD
--- NOTE | 2024-03-30 14:32 | DI.RAD.S_ITS ---
PROCEDURE: XR CHEST 1V INDICATIONS: chest pain TECHNIQUE: One view of the chest was acquired. COMPARISON: [facility], CR, XR CHEST 2V, 03/03/2024, 12:36. FINDINGS: Surgical changes and devices: None. Lungs and pleura: Lungs are clear. No pleural effusions or pneumothorax. Mediastinum: Tortuous aortic arch. Mediastinal contours otherwise appear normal. Heart size is normal. Bones and chest wall: No suspicious bony lesions. Overlying soft tissues appear unremarkable. IMPRESSION: No acute cardiothoracic process. Dictated by: Edward Brumfield M.D. on 03/30/2024 at 15:25 Approved by: Edward Brumfield M.D. on 03/30/2024 at 15:26
[2024-03-30 14:46] LABS: Add Manual Diff / Slide Review NO; Basophils Absolute Auto 200 /uL (0-100); Basophils Percent Auto 2.2 % (0-2); Eosinophils Absolute Auto 200 /uL (0-450); Eosinophils Percent Auto 2.7 % (2-4); Hematocrit 39.4 % (41-53); Hemoglobin 13.6 g/dL (13.5-17.5); Lymphocytes Absolute Auto 2100 /uL (1100-4500); Mean Corpuscular HGB Conc 34.6 % (30-36); Mean Corpuscular Hemoglobin 30.1 PG (26-34); Monocytes Absolute Auto 700 /uL (0-900); Monocytes Percent Auto 8.9 % (3-14); Neutrophils Absolute Auto 4300 /uL (1500-7000); Neutrophils Percent Auto 58.2 % (50-75); Platelet Count 267 X10^3/uL (150-400); Red Blood Cell Count 4.53 X10^6/uL (4.5-5.9); Red Cell Distribution Width 13.2 % (11.6-14.8); White Blood Cell Count 7.4 X10^3/uL (4.5-11.0)
[2024-03-30 14:53] LABS: INR 1.1 (0.9-1.3); Prothrombin Time 12.2 SECONDS (9.4-12.5)
[2024-03-30 14:56] LABS: PTT Partial Thromboplastin Tim 38 SECONDS (25.1-36.5)
[2024-03-30 14:57] LABS: Alanine Aminotransferase 20 IU/L (<50); Albumin 4.7 g/dL (3.5-5.0); Alkaline Phosphatase 58 U/L (38-126); Aspartate Aminotransferase 28 IU/L (17-59); Bilirubin Total 0.7 mg/dL (0.2-1.3); Blood Urea Nitrogen 10 mg/dL (9-20); Calcium 9.5 mg/dL (8.4-10.2); Carbon Dioxide 28 mmol/L (22-32); Chloride 95 mmol/L (98-107); Creatine Kinase 77 U/L (55-170); Estimated Glomerular Filt Rate > 60 mL/min (>60); Globulin 2.3 g/dL (1.7-4.1); Glucose 95 mg/dL (80-110); HEMOLYSIS < 15 (0-50); Lipase 82 U/L (23-300); Magnesium 1.9 mg/dL (1.6-2.3); Potassium 4.1 mmol/L (3.4-5.1); Sodium 128 mmol/L (137-145)
[2024-03-30 15:09] LABS: NT-proBNP (BNP-Adult 18+) 36 pg/mL (<450); Troponin I < 0.012 ng/mL (0.01-0.034)
--- NOTE | 2024-03-30 15:31 | PC.NURSE ---
Pt c/o blood clots in urine--family states they are unsure how long this has been going on for but suspects since yesterday. Pt c/o intermittent chest pain and audible wheezing. No wheezing heard upon auscultation nor while talking w/ pt. Pt denies any symptoms currently. Respirations regular and unlabored. No acute distress noted. Pt states he has not had the urge to urinate yet.
[2024-03-30 16:15] LABS: Appearance Urine UA CLOUDY; Bilirubin Urine UA NEGATIVE (NEGATIVE); Color Urine UA RED; Glucose Urine UA NEGATIVE (Negative); Ketones Urine UA TRACE (NEGATIVE); Leukocyte Esterase Urine UA TRACE (NEGATIVE); Nitrite Urine UA POSITIVE (Negative); Occult Blood Urine UA 3+ (Negative); Protein Urine UA 2+ (Negative); Specific Gravity Urine UA 1.015 (1.000-1.035)
[2024-03-30 16:24] LABS: Amorphous Sediment Urine 1+; Bacteria Urine Few (2-10); RBC Urine 10-30/HPF (0-5/HPF); Squamous Epithelial Cell Urine 0-1 /HPF (0-5/HPF); Urine Volume 10mL (spun); WBC Urine 5-10/HPF (0-5/HPF)
[2024-03-30 16:25] LABS: Culture Indicated Urine Specimen Cultured
--- NOTE | 2024-03-30 17:33 | ED_ITS ---
HPI - Chest Pain General Chief Complaint: Chest Pain Stated Complaint: blood in pee, chest pains, blood clots in pee Time Seen by Provider: 03/30/24 16:44 Source: patient Mode of arrival: Ambulatory History of Present Illness HPI narrative: Patient is an 88-year-old male history of hypertension BPH hyperlipidemia presenting today with hematuria. He was with family who report that they noticed some blood in his urine in the small amount of blood clots. He reports that he went for his walk this morning as he usually does. He occasionally gets short of breath which is not new for him and has to stop regularly. He did have pneumonia 1 month ago. He denies any sort of chest pain fever or chills. 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 Related Data Home Medications Medication Instructions Recorded Confirmed amlodipine 10 mg tablet 10 mg PO 06/29/19 03/03/24 nebivolol 5 mg tablet 5 mg PO 06/29/19 03/03/24 aspirin 81 mg tablet,delayed 81 mg PO .COMPLEX 03/03/24 03/03/24 release multivitamin 1 tab PO DAILY 03/03/24 03/03/24 tamsulosin 0.4 mg capsule 0.4 mg PO DAILY 03/03/24 03/03/24 terbinafine HCl 250 mg tablet 250 mg PO DAILY 03/03/24 03/03/24 Previous Rx's Medication Instructions Recorded acetaminophen 325 mg capsule 325 mg PO Q4-6H PRN fever or pain 08/16/17 #30 caps azithromycin 250 mg tablet See Rx Instructions PO .COMPLEX #6 03/03/24 tabs cephalexin 500 mg capsule 500 mg PO BID 7 days #14 caps 03/30/24 Allergies Allergy/AdvReac Type Severity Reaction Status Date / Time Penicillins [PENICILLINS] Allergy Severe HEADACHE, Verified 03/30/24 14:31 CHEST PAIN Patient History Medical History (Updated 03/30/24 @ 18:21 by Kylie Tran DO) Cataract Femur fracture, right Hearing loss 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 Retinal detachment HTN (hypertension) Surgical History S/P colonoscopy with polypectomy S/P TURP (status post transurethral resection of prostate) H/O cataract removal with insertion of prosthetic lens Social History household members: spouse Smoking Status: Former smoker Smoking Status: Former smoker Exam Initial Vital Signs Initial Vital Signs: Vital Signs Temperature 98 F 03/30/24 14:27 Pulse Rate 66 03/30/24 14:27 Respiratory Rate 17 03/30/24 14:27 Blood Pressure 146/70 H 03/30/24 14:27 Pulse Oximetry 99 03/30/24 14:27 Oxygen Delivery Method Room Air 03/30/24 14:27 GENERAL: Alert hard of hearing 88-year-old male HEENT: Head atraumatic,EOMI, pupils reactive, face symmetric, moist mucous membranes CARDIOVASCULAR: Regular rate and rhythm without murmurs, rubs or gallops. RESPIRATORY: Breath sounds equal bilaterally, no wheezes rales or rhonchi. ABDOMEN: Soft, nontender. Normoactive bowel sounds all 4 quadrants. No guarding or rebound. EXTREMITIES: Normal range of motion, no clubbing or edema. Neurovascularly intact NEUROLOGICAL: Alert and oriented x4.Normal gait and speech. SKIN: Warm, dry, no laceration, no petechiae, no rashes or lesions. Course Orders Ordered: ED Orders 03/30/24 14:26 EKG-12 Lead Stat 03/30/24 14:32 XR chest 1V Stat 03/30/24 14:40 Complete Blood Count AUTO DIFF Stat Comprehensive Metabolic Panel Stat Lipase Stat Magnesium Stat NT-proBNP (BNP-Adult 18+) Stat PTT Partial Thromboplastin Aydin Stat Prothrombin Time INR Stat Troponin & CK Cardiac Panel Stat 03/30/24 16:03 Urinalysis and Microscopic Stat Urine Culture Stat Discontinued Medications Cephalexin HCl (Cephalexin 250 Mg Capsule) 500 mg PO NOW ONE Stop: 03/30/24 17:55 Last Admin: 03/30/24 18:26 Dose: 500 mg Documented By: JERONIMO Vital Signs Vital signs: Vital Signs - 8 hr 03/30/24 14:27 03/30/24 15:30 03/30/24 15:30 Temperature 98 F Pulse Rate 66 62 Respiratory Rate 17 17 Blood Pressure 146/70 H 136/65 Pulse Oximetry 99 97 Oxygen Delivery Method Room Air 03/30/24 16:00 03/30/24 16:01 03/30/24 16:30 Temperature Pulse Rate 81 76 Respiratory Rate 23 Blood Pressure 139/71 Pulse Oximetry Oxygen Delivery Method 03/30/24 16:30 03/30/24 17:00 03/30/24 17:01 Temperature Pulse Rate 64 67 Respiratory Rate 15 16 Blood Pressure 168/74 H Pulse Oximetry 98 98 Oxygen Delivery Method 03/30/24 17:01 03/30/24 17:30 03/30/24 17:31 Temperature Pulse Rate 66 71 Respiratory Rate 17 15 Blood Pressure 138/75 Pulse Oximetry 98 99 Oxygen Delivery Method 03/30/24 17:31 03/30/24 18:00 03/30/24 18:00 Temperature Pulse Rate 73 78 Respiratory Rate 15 13 Blood Pressure 153/72 H Pulse Oximetry 99 99 Oxygen Delivery Method 03/30/24 18:34 Temperature 97.7 F Pulse Rate Respiratory Rate Blood Pressure Pulse Oximetry Oxygen Delivery Method MDM - Chest Pain Lab Data 03/30/24 14:40 03/30/24 14:40 Labs: Lab Results 03/30/24 03/30/24 Range/Units 14:40 16:03 WBC 7.4 (4.5-11.0) X10^3/uL RBC 4.53 (4.5-5.9) X10^6/uL Hgb 13.6 (13.5-17.5) g/dL Hct 39.4 L (41-53) % MCV 87.0 (80-100) fL MCH 30.1 (26-34) PG MCHC 34.6 (30-36) % RDW 13.2 (11.6-14.8) % Plt Count 267 (150-400) X10^3/uL Neut % (Auto) 58.2 (50-75) % Lymph % (Auto) 28.0 (25-40) % Lynn % (Auto) 8.9 (3-14) % Eos % (Auto) 2.7 (2-4) % Baso % (Auto) 2.2 H (0-2) % Neut # (Auto) 4300 (2146-7713) /uL Lymph # (Auto) 2100 (5632-6477) /uL Lynn # (Auto) 700 (0-900) /uL Eos # (Auto) 200 (0-450) /uL Baso # (Auto) 200 H (0-100) /uL PT 12.2 (9.4-12.5) SECONDS INR 1.1 (0.9-1.3) APTT 38 H (25.1-36.5) SECONDS Sodium 128 L (137-145) mmol/L Potassium 4.1 (3.4-5.1) mmol/L Chloride 95 L (98-107) mmol/L Carbon Dioxide 28 (22-32) mmol/L BUN 10 (9-20) mg/dL Creatinine 0.77 (0.66-1.25) mg/dL Estimated GFR > 60 (>60) mL/min BUN/Creatinine Ratio 13.0 (6-22) Glucose 95 (80-110) mg/dL Calcium 9.5 (8.4-10.2) mg/dL Magnesium 1.9 (1.6-2.3) mg/dL Total Bilirubin 0.7 (0.2-1.3) mg/dL AST 28 (17-59) IU/L ALT 20 (<50) IU/L Alkaline Phosphatase 58 (38-126) U/L Total Creatine Kinase 77 (55-170) U/L Troponin I < 0.012 (0.01-0.034) ng/mL NT-Pro-B Natriuret Pep 36 (<450) pg/mL Total Protein 7.0 (6.3-8.2) g/dL Albumin 4.7 (3.5-5.0) g/dL Globulin 2.3 (1.7-4.1) g/dL Albumin/Globulin Ratio 2.0 (1.0-2.8) Lipase 82 (23-300) U/L Urine Color Red Urine Appearance Cloudy Urine pH 7.0 (4.5-8.0) Ur Specific [place] 1.015 (1.000-1.035) Urine Protein 2+ H (Negative) Urine Glucose (UA) Negative (Negative) g/dL Urine Ketones Trace H (NEGATIVE) Urine Occult Blood 3+ H (Negative) Urine Nitrate Positive H (Negative) Urine Bilirubin Negative (NEGATIVE) Urine Urobilinogen 2.0 H (0.2) E.U./dL Ur Leukocyte Esterase Trace H (NEGATIVE) Urine RBC 10-30/hpf H (0-5/HPF) Urine WBC 5-10/hpf H (0-5/HPF) Ur Squamous Epith Cells 0-1 /hpf (0-5/HPF) Amorphous Sediment 1+ Urine Bacteria Few (2-10) H (None) Ur Culture Indicated? Specimen cultured Vol Urine Centrifuged 10ml (spun) Imaging Data Chest x-ray: Radiologist's Impression: PROCEDURE: XR CHEST 2V INDICATIONS: cough, flu A TECHNIQUE: 2 views of the chest were acquired. COMPARISON: [facility], CR, XR CHEST 1V, 03/29/2023, 8:27. [facility], CR, XR CHEST 2V, 03/28/2024, 16:13. FINDINGS: Surgical changes and devices: None. Lungs and pleura: The lungs are hyperexpanded, with flattening of the hemidiaphragms seen. No pneumothorax or large pleural effusion can be seen. Mediastinum: The cardiac contours are within normal limits. The aorta demonstrates calcification and tortuosity. Bones and chest wall: No suspicious bony abnormalities. Age-appropriate bony degenerative changes are seen. Accentuated thoracic kyphosis is seen. Soft tissues appear unremarkable. IMPRESSION: Hyperexpanded lungs, without an acute cardiopulmonary process identified. Dictated by: Bo Lainez M.D. on 03/30/2024 at 12:28 ECG Data Attestation: I personally reviewed and interpreted this ECG as follows: Prior ECG tracings: available for review Interpretation: Normal sinus rhythm rate 64 VT interval 164 QRS [address] changes similar to prior EKGs MDM Narrative Medical decision making narrative: MDM CC: Chest pain hematuria Complicating co-morbidities: Hypertension BPH Data collected from: Family at bedside Medical records reviewed: Walk-in clinic records reviewed pneumonia on x-ray 03/03/2024 Differential considered: Hematuria, UTI Exam documented above, pertinent findings include: Hard of hearing awake alert nontoxic 88-year-old male, he does have a ureteral filled with light pink urine no blood clot Lab Test results independently reviewed as above. Pertinent findings: WBC 7.4 hemoglobin 13.6 hematocrit 39.4 platelets 267 Sodium 128 potassium 4.1 chloride 95 carbon dioxide 28 BUN 10 creatinine 0.7 Troponin negative, BNP 36 Urinalysis positive for protein blood and nitrates along with WBCs and bacteria consistent with UTI Independently reviewed EKG as above Sinus rhythm no ischemia Imaging studies independently reviewed: No acute abnormality Consultations: none Treatments: Keflex Re-evaluations: [ ] Discussion: 88-year-old male presenting today with hematuria, consistent with UTI. He was able to empty his bladder and urinate. I see no need for Ruiz catheter at this time. He has no evidence of sepsis he has no leukocytosis, sirs criteria is negative. At this time he was having some shortness of breath but he was able to walk today. Does not report any worsening shortness of breath. He has no evidence of congestive heart failure pneumonia seems to have cleared up. He has not hypoxic. Overall more concerned today for hematuria. Discussion with family about when to return to ED including urinary retention. They understand and verbally agrees Discharge Plan Departure Patient Disposition: Home Clinical Impression: Hematuria, Acute UTI Instructions: Blood in Urine, DI for Urinary Tract Infection (UTI) Activity Restrictions/Additional Instructions: *You have been diagnosed with hematuria, UTI *What to do: At this time does look like you have a small bladder infection, please continue to monitor *Continue to take medications as directed Keflex 500 mg twice a day for 7 days *Follow up with your primary care provider in 2-3 days or call [phone] *Return to ER if you should have inability to pee pain small amounts frequently increased confusion shortness of or any new, worsening or concerning symptoms Prescriptions: New cephalexin 500 mg capsule 500 mg PO BID 7 Days Qty: 14 0RF No Action tamsulosin 0.4 mg capsule 0.4 mg PO DAILY terbinafine HCl 250 mg tablet 250 mg PO DAILY multivitamin Tablet 1 tab PO DAILY aspirin 81 mg tablet,delayed release (DR/EC) 81 mg PO .COMPLEX Rx Instructions: 81 mg orally Mon, Wed, Fri azithromycin 250 mg tablet See Rx Instructions PO .COMPLEX Qty: 6 0RF Rx Instructions: For 250 mg dose pack: take 500 mg today (day 1), then 250 mg for 4 days (days 2-5) PO Bystolic 5 mg tablet 5 mg PO amlodipine 10 mg tablet 10 mg PO acetaminophen 325 mg capsule 325 mg PO Q4-6H PRN (Reason: fever or pain) Qty: 30 0RF Rx Instructions: 1-2 tabs every 4-6 hours as needed for pain Referrals: Huong Thrasher PA-C [Primary Care Provider] - Stand Alone Forms: Patient Portal/API/Survey
[2024-03-30] MEDS: cephALEXin 250 MG CAPSULE 500 MG PO (18:26)
== END 2024-03-30 18:34 | disposition home or self-care (01) ==
PROVIDERS: Emergency Provider Emergency Medicine; PCP Physician Assistant
DX: N39.0 Urinary tract infection, site not specified (principal); R31.9 Hematuria, unspecified; R07.9 Chest pain, unspecified
CPT/HCPCS: 36415; 71045; 80053; 81001; 82550; 83690; 83735; 83880; 84484; 85025; 85610; 85730; 87086; 93005; 93010; 99284

== ENCOUNTER → 2024-04-30 15:34 | Outpatient (CLI) | payer MEDICARE, SELFPAY ==
[2017-08-12 18:47] VITALS: BMI 31.5
--- NOTE | 2024-04-30 15:38 | DI.CT.S_ITS ---
PROCEDURE: CT IVP A/P W/WO INDICATIONS: 89 y/o M w/ gross hematuria, eval upper tracts. TECHNIQUE: Optional 5 mm thick noncontrast images acquired from the diaphragm to the symphysis pubis. After the administration of intravenous contrast, 5 mm thick images acquired from the diaphragm to the symphysis pubis after a 10-minute delay. 2 mm thick coronal and sagittal reformats were then performed of the kidneys and ureters. For radiation dose reduction, the following was used: automated exposure control, adjustment of mA and/or kV according to patient size. COMPARISON: None. FINDINGS: Image quality: Good. Kidneys and Ureters: Both kidneys are normal in size, without hydronephrosis or nephrolithiasis. No perinephric fat stranding. There is normal bilateral renal enhancement. Renal calyces appear normal in morphology when filled with contrast. Opacified portions of both ureters demonstrate normal caliber Bladder: Bladder wall thickness is normal. No calcified bladder stones. OTHER: Lower chest: Prominent heart size. Liver: No solid mass. Small cysts. Gallbladder: No radiopaque gallstones or wall thickening. Biliary ducts: No biliary dilation. Pancreas: No ductal dilation. Spleen: Size is within normal limits. Adrenal Glands: No adrenal nodules. Stomach and Bowel: Normal colonic caliber, without significant wall thickening. The appendix is not seen. Peritoneum: No abnormal intraperitoneal fluid. No free air. Ventral Wall: No hernia. Abdominal Nodes: No retroperitoneal or mesenteric adenopathy by size criteria. Vessels: Aorta and inferior vena cava are normal in size. PELVIS: Pelvic Organs: Prostatomegaly. Pelvic Nodes: No enlarged lymph nodes. Miscellaneous: No inguinal hernias are seen. Bones: No aggressive osseous abnormality. Right femur intramedullary kodi with screw fixation. 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 IMPRESSION: 1. No kidney stones. No hydronephrosis. 2. No solid renal mass. No upper urinary tract filling defect. 3. Prostatomegaly. Dictated by: William Morrison M.D. on 04/30/2024 at 20:51 Approved by: William Morrison M.D. on 04/30/2024 at 20:59
== END ==
PROVIDERS: PCP Physician Assistant; Referring Provider Urology; Visit Provider Urology
DX: R31.0 Gross hematuria (principal); K76.89 Other specified diseases of liver; N40.0 Benign prostatic hyperplasia without lower urinary tract symptoms; M43.17 Spondylolisthesis, lumbosacral region
CPT/HCPCS: 74178; Q9967

== ENCOUNTER 2024-05-21 13:11 | Inpatient (IN) | payer MEDICARE, SELFPAY ==
[2017-08-12 18:47] VITALS: BMI 31.5
[2024-05-21] VITALS (18 sets, daily range): BP systolic 129–166; BP diastolic 65–86; PULSE 72–86; RESP 13–28; TEMP 36.6–37.1; O2SAT 88–97; BMI 24.4
--- NOTE | 2024-05-21 13:40 | DI.RAD.S_ITS ---
PROCEDURE: XR CHEST 1V INDICATIONS: Shortness of breath TECHNIQUE: One view of the chest was acquired. COMPARISON: [facility], CR, XR CHEST 1V, 03/30/2024, 14:54. FINDINGS: Surgical changes and devices: None. Lungs and pleura: Patchy airspace opacities in the right mid lung zone and bilateral lung bases. No pleural effusions or pneumothorax. Mediastinum: Mediastinal contours appear normal. Heart size is normal. Bones and chest wall: No suspicious bony lesions. Overlying soft tissues appear unremarkable. IMPRESSION: Patchy bilateral pulmonary opacities suspicious for pneumonia or possibly edema. Approved by: Austen Castillo M.D. on 05/21/2024 at 14:16
--- NOTE | 2024-05-21 13:45 | EKG_ITS ---
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
[2024-05-21 14:14] LABS: Add Manual Diff / Slide Review NO; Basophils Absolute Auto 0 /uL (0-100); Basophils Percent Auto 0.3 % (0-2); Eosinophils Absolute Auto 0 /uL (0-450); Hematocrit 39.5 % (41-53); Hemoglobin 13.6 g/dL (13.5-17.5); Lymphocytes Absolute Auto 700 /uL (1100-4500); Lymphocytes Percent Auto 6.3 % (25-40); Mean Corpuscular HGB Conc 34.5 % (30-36); Mean Corpuscular Hemoglobin 29.9 PG (26-34); Mean Corpuscular Volume 86.8 fL (80-100); Monocytes Absolute Auto 800 /uL (0-900); Neutrophils Absolute Auto 9900 /uL (1500-7000); Neutrophils Percent Auto 86.4 % (50-75); Platelet Count 262 X10^3/uL (150-400); Red Blood Cell Count 4.55 X10^6/uL (4.5-5.9); Red Cell Distribution Width 14.1 % (11.6-14.8); White Blood Cell Count 11.5 X10^3/uL (4.5-11.0)
[2024-05-21 14:21] LABS: INR 1.2 (0.9-1.3)
[2024-05-21 14:24] LABS: Lactate (Lactic Acid) 1.2 mmol/L (0.7-2.1)
[2024-05-21 14:25] LABS: Alanine Aminotransferase 28 IU/L (<50); Albumin 4.5 g/dL (3.5-5.0); Albumin Globulin Ratio 1.6 (1.0-2.8); Alkaline Phosphatase 66 U/L (38-126); Aspartate Aminotransferase 28 IU/L (17-59); BUN Creatinine Ratio 24.1 (6-22); Bilirubin Total 1.7 mg/dL (0.2-1.3); Blood Urea Nitrogen 21 mg/dL (9-20); Calcium 9.3 mg/dL (8.4-10.2); Carbon Dioxide 24 mmol/L (22-32); Chloride 91 mmol/L (98-107); Estimated Glomerular Filt Rate > 60 mL/min (>60); Globulin 2.8 g/dL (1.7-4.1); Glucose 103 mg/dL (80-110); HEMOLYSIS < 15 (0-50); Potassium 3.7 mmol/L (3.4-5.1); Sodium 126 mmol/L (137-145); Total Protein 7.3 g/dL (6.3-8.2)
[2024-05-21 14:37] LABS: NT-proBNP (BNP-Adult 18+) 131 pg/mL (<450); Troponin I < 0.012 ng/mL (0.01-0.034)
[2024-05-21 15:03] LABS: Influenza A - CEPHEID Flu A POSITIVE (NEGATIVE); Influenza B - CEPHEID Flu B NEGATIVE (NEGATIVE); Respiratory Syncytial Virus Negative (Negative)
[2024-05-21 15:04] LABS: COVID-19 CEPHEID 4-PLEX PCR Negative (Negative)
--- NOTE | 2024-05-21 18:00 | ED_ITS ---
HPI - SOB/Dyspnea General Chief Complaint: Shortness of Breath/Dyspnea Stated Complaint: cough,loss of appetite t-7,weakness Time Seen by Provider: 05/21/24 17:57 Source: patient and family Mode of arrival: Wheelchair Limitations: no limitations History of Present Illness HPI Narrative: Patient 89-year-old male history of hypertension, BPH, hyperlipidemia presenting to day with decreasing appetite weakness and cough. Family reports that everyone has been sick. However he has had increasing weakness. No significant confusion. He does have a cough. Found to be 88% on room air he was requiring 2-3 L. He has had significant decrease in appetite. He does have some mild back pain but no chest pain abdominal pain nausea or vomiting. Related Data Home Medications Medication Instructions Recorded Confirmed amlodipine 10 mg tablet 10 mg PO 06/29/19 05/09/24 nebivolol 5 mg tablet 5 mg PO 06/29/19 05/09/24 aspirin 81 mg tablet,delayed 81 mg PO .COMPLEX 03/03/24 05/21/24 release multivitamin 1 tab PO DAILY 03/03/24 05/09/24 tamsulosin 0.4 mg capsule 0.4 mg PO DAILY 03/03/24 05/09/24 Allergies Allergy/AdvReac Type Severity Reaction Status Date / Time Penicillins [PENICILLINS] Allergy Severe HEADACHE, Verified 05/09/24 11:30 CHEST PAIN Patient History Medical History Hx of chronic arthritis Cataract Femur fracture, right Hearing loss 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 Retinal detachment HTN (hypertension) Surgical History History of hip replacement S/P colonoscopy with polypectomy S/P TURP (status post transurethral resection of prostate) H/O cataract removal with insertion of prosthetic lens Family History Sister Cancer Son Cancer Daughter Hyperlipidemia Social History marital status: number of children: 3 household members: none Smoking Status: Former smoker alcohol intake: never caffeine: Yes Type(s) of exercise: walking and regular exercise frequency: decline to answer Smoking Status: Former smoker Exam Initial Vital Signs Initial Vital Signs: Vital Signs Pulse Rate 82 05/21/24 13:28 Pulse Oximetry 92 05/21/24 13:28 Oxygen Delivery Method Room Air 05/21/24 13:28 GENERAL: Alert very hard of hearing 89-year-old male and in no acute distress. HEENT: Head atraumatic,EOMI, pupils reactive, face symmetric, moist mucous membranes CARDIOVASCULAR: Regular rate and rhythm without murmurs, rubs or gallops. RESPIRATORY: Coarse breath sounds bilaterally no significant tachypnea ABDOMEN: Soft, nontender. Normoactive bowel sounds all 4 quadrants. No guarding or rebound. : No CVA tenderness EXTREMITIES: Normal range of motion, no clubbing or edema. Neurovascularly intact NEUROLOGICAL: Alert and oriented x4.Normal gait and speech. Cranial nerves II through XII grossly intact. SKIN: Warm, dry, no laceration, no petechiae, no rashes or lesions. Course Orders Ordered: ED Orders 05/21/24 18:20 Blood Culture Stat 05/21/24 20:00 Osmolality Urine Urgent Urinalysis and Microscopic Urgent 05/21/24 20:22 Sodium Urine Random Urgent 05/22/24 05:00 Complete Blood Count AUTO DIFF DAILY Comprehensive Metabolic Panel DAILY Magnesium DAILY TSH w/ Reflex to FT4 Routine 05/23/24 05:00 Complete Blood Count AUTO DIFF DAILY Comprehensive Metabolic Panel DAILY Magnesium DAILY 05/24/24 05:00 Complete Blood Count AUTO DIFF DAILY Comprehensive Metabolic Panel DAILY Magnesium DAILY Acetaminophen (Acetaminophen 325 Mg Tablet) 650 mg PO Q6H PRN PRN Reason: Fever/Mild Pain (1-3) Enoxaparin Sodium (Enoxaparin 40 Mg/0.4 Ml Syringe) 40 mg SUBCUT DAILY [facility] Ceftriaxone Sodium 1,000 mg/ (Sodium Chloride) 100 mls @ 200 mls/hr IV Q24H ROGE Azithromycin 500 mg/ Dextrose 250 mls @ 250 mls/hr IV Q24H ROGE Stop: 05/24/24 18:59 Naloxone HCl (Naloxone 0.4 Mg/Ml Vial) 0.2 mg IV Q2MIN PRN PRN Reason: Opiate Reversal Ondansetron HCl (Ondansetron 4 Mg/2 Ml Inj) 4 mg IV Q8HR PRN PRN Reason: Nausea And Vomiting Discontinued Medications Ceftriaxone Sodium 1,000 mg/ (Sodium Chloride) 100 mls @ 200 mls/hr IV NOW ONE Stop: 05/21/24 18:02 Last Infusion: 05/21/24 18:50 Dose: 200 mls/hr Documented By: Admin: 05/21/24 18:31 Dose: 200 mls/hr Documented By: CEASAR Azithromycin 500 mg/ Dextrose 250 mls @ 250 mls/hr IV NOW ONE Stop: 05/21/24 18:02 Last Admin: 05/21/24 19:42 Dose: Not Given Documented By: MM Vital Signs Vital signs: Vital Signs - 8 hr 05/21/24 17:00 05/21/24 17:00 05/21/24 17:30 Pulse Rate 83 84 Respiratory Rate 23 18 Blood Pressure 143/78 H Pulse Oximetry 93 93 Oxygen Delivery Method Nasal Cannula Nasal Cannula Oxygen Flow Rate 3 3 05/21/24 17:30 05/21/24 18:00 05/21/24 18:00 Pulse Rate 84 Respiratory Rate 22 Blood Pressure 150/81 H 142/77 H Pulse Oximetry 92 Oxygen Delivery Method Nasal Cannula Oxygen Flow Rate 3 MDM - SOB/Dyspnea Lab Data 05/21/24 14:00 05/21/24 14:00 Labs: Lab Results 05/21/24 Range/Units 14:00 WBC 11.5 H (4.5-11.0) X10^3/uL RBC 4.55 (4.5-5.9) X10^6/uL Hgb 13.6 (13.5-17.5) g/dL Hct 39.5 L (41-53) % MCV 86.8 (80-100) fL MCH 29.9 (26-34) PG MCHC 34.5 (30-36) % RDW 14.1 (11.6-14.8) % Plt Count 262 (150-400) X10^3/uL Neut % (Auto) 86.4 H (50-75) % Lymph % (Auto) 6.3 L (25-40) % [place] % (Auto) 7.0 (3-14) % Eos % (Auto) 0.0 L (2-4) % Baso % (Auto) 0.3 (0-2) % Neut # (Auto) 9900 H (7215-6859) /uL Lymph # (Auto) 700 L (2905-1712) /uL [place] # (Auto) 800 (0-900) /uL Eos # (Auto) 0 (0-450) /uL Baso # (Auto) 0 (0-100) /uL PT 14.0 H (9.4-12.5) SECONDS INR 1.2 (0.9-1.3) Sodium 126 L (137-145) mmol/L Potassium 3.7 (3.4-5.1) mmol/L Chloride 91 L (98-107) mmol/L Carbon Dioxide 24 (22-32) mmol/L BUN 21 H (9-20) mg/dL Creatinine 0.87 (0.66-1.25) mg/dL Estimated GFR > 60 (>60) mL/min BUN/Creatinine Ratio 24.1 H (6-22) Glucose 103 (80-110) mg/dL Lactate 1.2 (0.7-2.1) mmol/L Calcium 9.3 (8.4-10.2) mg/dL Total Bilirubin 1.7 H (0.2-1.3) mg/dL AST 28 (17-59) IU/L ALT 28 (<50) IU/L Alkaline Phosphatase 66 (38-126) U/L Troponin I < 0.012 (0.01-0.034) ng/mL NT-Pro-B Natriuret Pep 131 (<450) pg/mL Total Protein 7.3 (6.3-8.2) g/dL Albumin 4.5 (3.5-5.0) g/dL Globulin 2.8 (1.7-4.1) g/dL Albumin/Globulin Ratio 1.6 (1.0-2.8) SARS-CoV-2 (PCR) Negative (Negative) Influenza A (RT-PCR) Flu a positive H (NEGATIVE) Influenza B (RT-PCR) Flu b negative (NEGATIVE) RSV (PCR) Negative (Negative) Imaging Data Chest x-ray: Radiologist's Impression: PROCEDURE: XR CHEST 1V INDICATIONS: Shortness of breath TECHNIQUE: One view of the chest was acquired. COMPARISON: [facility], , XR CHEST 1V, 03/30/2024, 14:54. FINDINGS: Surgical changes and devices: None. Lungs and pleura: Patchy airspace opacities in the right mid lung zone and bilateral lung bases. No pleural effusions or pneumothorax. Mediastinum: Mediastinal contours appear normal. Heart size is normal. Bones and chest wall: No suspicious bony lesions. Overlying soft tissues appear unremarkable. IMPRESSION: Patchy bilateral pulmonary opacities suspicious for pneumonia or possibly edema. Approved by: Austen Castillo M.D. on 05/21/2024 at 14:16 ECG Data Attestation: I personally reviewed and interpreted this ECG as follows: Prior ECG tracings: available for review Interpretation: Normal sinus rhythm rate 75 HI interval [id number] QTC [address] changes MDM Narrative Medical decision making narrative: MDM CC: Cough weakness Complicating co-morbidities: Hypertension BPH Data collected from: Daughter Medical records reviewed: Previous ED visits Exam documented above, pertinent findings include: Awake alert 89-year-old male appears weak coarse breath sounds bilaterally no peripheral edema Lab Test results independently reviewed as above. Pertinent findings: Positive influenza a WBC 11.4 Lactate 1.2 Sodium 126 previously 128 Bilirubin 1.7 Independently reviewed EKG as above No acute ischemia Imaging studies independently reviewed: Chest x-ray bilateral patchy infiltrate Consultations: Dr. León accepts patient Treatments: Rocephin azithromycin Discussion: Patient 89-year-old male who presents today with increasing weakness and cough. He has influenza a and is found to have pneumonia on x-ray. Surprisingly his blood work does not show evidence of severe sepsis. He was WBC of 11.4 and a lactate of 1.2. He was mildly hyponatremic with a sodium of 126. He has had pretty poor intake over the last week or so due to illness. He was requiring oxygen at this time due to pneumonia and influenza A. He does not typically wear oxygen. He was not a candidate for Tamiflu he has had symptoms ongoing for more than 7 days Discharge Plan Departure Patient Disposition: Admitted As Inpatient Clinical Impression: Influenza A, Hypoxia Pneumonia Qualifiers: Pneumonia type: due to unspecified organism Laterality: bilateral Lung location: lower lobe of lung Qualified Code(s): J18.9 - Pneumonia, unspecified organism Admit Date/Time: 05/21/24 18:11 Admit Provider: Milo León
[2024-05-21] MEDS: cefTRIAXone 1,000 MG in SODIUM CHLORIDE 0.9% 100 ML 200 MG IV (18:31)
--- NOTE | 2024-05-21 20:12 | PM.HP.1 ---
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 Retinal detachment HTN (hypertension) Surgical History History of hip replacement S/P colonoscopy with polypectomy S/P TURP (status post transurethral resection of prostate) H/O cataract removal with insertion of prosthetic lens Family History Sister Cancer Son Cancer Daughter Hyperlipidemia Social History marital status: number of children: 3 household members: none Smoking Status: Former smoker alcohol intake: never caffeine: Yes Type(s) of exercise: walking and regular exercise frequency: decline to answer Meds Home Medications and Allergies Home Medications Medication Instructions Recorded Confirmed Type amlodipine 10 mg tablet 10 mg PO 06/29/19 05/09/24 History nebivolol 5 mg tablet 5 mg PO 06/29/19 05/09/24 History aspirin 81 mg tablet,delayed 81 mg PO .COMPLEX 03/03/24 05/21/24 History release multivitamin 1 tab PO DAILY 03/03/24 05/09/24 History tamsulosin 0.4 mg capsule 0.4 mg PO DAILY 03/03/24 05/09/24 History Allergies Allergy/AdvReac Type Severity Reaction Status Date / Time Penicillins [PENICILLINS] Allergy Severe HEADACHE, Verified 05/09/24 11:30 CHEST PAIN Exam Vital Signs (past 8 hours): - 05/21/24 13:28 05/21/24 13:29 05/21/24 13:29 Temperature Pulse Rate 82 80 Respiratory Rate Blood Pressure 157/74 H Pulse Oximetry 92 88 L Oxygen Delivery Method Room Air Room Air Oxygen Flow Rate 05/21/24 13:30 05/21/24 13:30 05/21/24 13:30 Temperature 98.7 F Pulse Rate 79 81 Respiratory Rate 22 Blood Pressure 157/74 H 155/76 H Pulse Oximetry 92 89 L Oxygen Delivery Method Room Air Room Air Oxygen Flow Rate 05/21/24 14:00 05/21/24 14:01 05/21/24 14:01 Temperature Pulse Rate 75 79 Respiratory Rate 24 21 Blood Pressure 147/71 H Pulse Oximetry 93 92 Oxygen Delivery Method Nasal Cannula Nasal Cannula Oxygen Flow Rate 3 3 05/21/24 14:30 05/21/24 14:30 05/21/24 15:00 Temperature Pulse Rate 72 76 Respiratory Rate 18 13 Blood Pressure 150/65 H Pulse Oximetry 94 94 Oxygen Delivery Method Nasal Cannula Nasal Cannula Oxygen Flow Rate 3 3 05/21/24 15:01 05/21/24 15:01 05/21/24 15:30 Temperature Pulse Rate 76 76 Respiratory Rate 19 19 Blood Pressure 166/73 H Pulse Oximetry 93 94 Oxygen Delivery Method Nasal Cannula Nasal Cannula Oxygen Flow Rate 3 3 05/21/24 15:31 05/21/24 15:31 05/21/24 16:00 Temperature Pulse Rate 76 Respiratory Rate 19 Blood Pressure 145/67 H 153/76 H Pulse Oximetry 93 Oxygen Delivery Method Nasal Cannula Oxygen Flow Rate 3 05/21/24 16:00 05/21/24 16:30 05/21/24 16:31 Temperature Pulse Rate 77 82 Respiratory Rate 19 28 H Blood Pressure 141/86 H Pulse Oximetry 97 93 Oxygen Delivery Method Nasal Cannula Nasal Cannula Oxygen Flow Rate 3 3 05/21/24 16:31 05/21/24 17:00 05/21/24 17:00 Temperature Pulse Rate 85 83 Respiratory Rate 20 23 Blood Pressure 143/78 H Pulse Oximetry 92 93 Oxygen Delivery Method Nasal Cannula Nasal Cannula Oxygen Flow Rate 3 3 05/21/24 17:30 05/21/24 17:30 05/21/24 18:00 Temperature Pulse Rate 84 84 Respiratory Rate 18 22 Blood Pressure 150/81 H Pulse Oximetry 93 92 Oxygen Delivery Method Nasal Cannula Nasal Cannula Oxygen Flow Rate 3 3 05/21/24 18:00 05/21/24 18:30 05/21/24 18:30 Temperature 98.2 F Pulse Rate 86 Respiratory Rate 19 Blood Pressure 142/77 H 129/71 Pulse Oximetry 92 Oxygen Delivery Method Nasal Cannula Oxygen Flow Rate 3 Oxygen Delivery Method Nasal Cannula Oxygen Flow Rate 3 Objective Labs 05/21/24 14:00 05/21/24 14:00 Labs: Laboratory Results - last 24 hr 05/21/24 14:00 WBC 11.5 H RBC 4.55 Hgb 13.6 Hct 39.5 L MCV 86.8 MCH 29.9 MCHC 34.5 RDW 14.1 Plt Count 262 Neut % (Auto) 86.4 H Lymph % (Auto) 6.3 L [place] % (Auto) 7.0 Eos % (Auto) 0.0 L Baso % (Auto) 0.3 Neut # (Auto) 9900 H Lymph # (Auto) 700 L [place] # (Auto) 800 Eos # (Auto) 0 Baso # (Auto) 0 PT 14.0 H INR 1.2 Sodium 126 L Potassium 3.7 Chloride 91 L Carbon Dioxide 24 BUN 21 H Creatinine 0.87 Estimated GFR > 60 BUN/Creatinine Ratio 24.1 H Glucose 103 Lactate 1.2 Calcium 9.3 Total Bilirubin 1.7 H AST 28 ALT 28 Alkaline Phosphatase 66 Troponin I < 0.012 NT-Pro-B Natriuret Pep 131 Total Protein 7.3 Albumin 4.5 Globulin 2.8 Albumin/Globulin Ratio 1.6 SARS-CoV-2 (PCR) Negative Influenza A (RT-PCR) Flu a positive H Influenza B (RT-PCR) Flu b negative RSV (PCR) Negative Assessment & Plan Assessment and plan (1) Acute respiratory failure with hypoxia: Status: Acute (2) Pneumonia: Qualifiers: Pneumonia type: due to unspecified organism Laterality: bilateral Lung location: lower lobe of lung Qualified Code(s): J18.9 - Pneumonia, unspecified organism Status: Acute (3) Influenza A: Status: Acute Time-Based Coding :: [TOTAL MINUTES] spent with patient and on the chart (including review of chart, obtaining history, exam, reviewing outside data, placing orders, documenting exam and treatment plan, and counseling patient) on [DATE].
[2024-05-21 20:53] LABS: Sodium Urine Random 46 mmol/L (30-90)
[2024-05-22] VITALS (8 sets, daily range): BP systolic 123–140; BP diastolic 62–73; PULSE 68–76; RESP 16–20; TEMP 36.4–36.9; O2SAT 92–94
--- NOTE | 2024-05-22 00:26 | PM.HP.1 ---
History of Present Illness History of Present Illness Date Patient Seen: 05/21/24 Chief complaint: cough,loss of appetite t-7 Narrative: Renan Pérez is an 89 y/o M, with history of HTN, HLD, BPH, Severe hearing loss, who was brought from home sec to [facility], to ED for evaluation. History is limited as pt is very hard of hearing. History obtained from chart review and ED note. Apparently pt has been coughing x 2 weeks,. with productive sputum of greyish color, no hemoptysis, no fevers or chills or CP reported. he had generalized weakness, and decreased apatite, he had some low back pain with coughing bouts. No N/V/ D, or abd pain No Dysuria. No light headedness or syncope. No peripheral edema or orthopnea. Many family members ill with flu like symptoms. In ED he was hypoxic O2 sats on RA : 88%, was put on 3 L O2 nc with O2 sats improving to 95-97% He was tachypneic. and Afebrile EKG : NSR HR 75, no acute St- T wave changes CXR: Patchy bilat pulmonary opacities suspicious Labs : WBC 11.4 K, Sodium 126 Cl 91, Trop and probnp and Lactate not elevated Resp swab + for Influenza A He had bl cx done, and started on Ceftriaxone and Azithromycin , and 1 L NS, and referred to Hospitalist team for admission. 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 Retinal detachment HTN (hypertension) Surgical History History of hip replacement S/P colonoscopy with polypectomy S/P TURP (status post transurethral resection of prostate) H/O cataract removal with insertion of prosthetic lens Family History Sister Cancer Son Cancer Daughter Hyperlipidemia Social History marital status: number of children: 3 household members: none Smoking Status: Former smoker alcohol intake: never caffeine: Yes Type(s) of exercise: walking and regular exercise frequency: decline to answer Meds Home Medications and Allergies Home Medications Medication Instructions Recorded Confirmed Type amlodipine 10 mg tablet 10 mg PO 06/29/19 05/09/24 History nebivolol 5 mg tablet 5 mg PO 06/29/19 05/09/24 History aspirin 81 mg tablet,delayed 81 mg PO .COMPLEX 03/03/24 05/21/24 History release multivitamin 1 tab PO DAILY 03/03/24 05/09/24 History tamsulosin 0.4 mg capsule 0.4 mg PO DAILY 03/03/24 05/09/24 History Allergies Allergy/AdvReac Type Severity Reaction Status Date / Time Penicillins [PENICILLINS] Allergy Severe HEADACHE, Verified 05/09/24 11:30 CHEST PAIN Review of Systems Review of Systems ROS: Yes other (unable to obtain as pt very hard of hearing ) Exam Vital Signs (past 8 hours): - 05/21/24 16:30 05/21/24 16:31 05/21/24 16:31 Temperature Pulse Rate 82 85 Respiratory Rate 28 H 20 Blood Pressure 141/86 H Pulse Oximetry 93 92 Oxygen Delivery Method Nasal Cannula Nasal Cannula Oxygen Flow Rate 3 3 05/21/24 17:00 05/21/24 17:00 05/21/24 17:30 Temperature Pulse Rate 83 84 Respiratory Rate 23 18 Blood Pressure 143/78 H Pulse Oximetry 93 93 Oxygen Delivery Method Nasal Cannula Nasal Cannula Oxygen Flow Rate 3 3 05/21/24 17:30 05/21/24 18:00 05/21/24 18:00 Temperature Pulse Rate 84 Respiratory Rate 22 Blood Pressure 150/81 H 142/77 H Pulse Oximetry 92 Oxygen Delivery Method Nasal Cannula Oxygen Flow Rate 3 05/21/24 18:30 05/21/24 18:30 05/21/24 20:21 Temperature 98.2 F 97.8 F Pulse Rate 86 79 Respiratory Rate 19 18 Blood Pressure 129/71 136/80 Pulse Oximetry 92 95 Oxygen Delivery Method Nasal Cannula Oxygen Flow Rate 3 3 05/21/24 20:50 Temperature Pulse Rate Respiratory Rate Blood Pressure Pulse Oximetry Oxygen Delivery Method Nasal Cannula Oxygen Flow Rate Oxygen Delivery Method Nasal Cannula Oxygen Flow Rate 3 Narrative Exam Narrative: Patient is laying in bed, appearing comfortable He is quite hard of hearing , exam is limited as not following all commands sec to [place] ( when he can hear, he answers questions appropriately) Able to speak in full sentences HEENT: AT, NC EOMI, PERRL Conjunctivae are normal. No Scleral Icterus Neck : supple, no TMG, no adenopathy Chest : Coarse BS bilaterally. Rhonchi at bases. No Wheezing. No crackles. Normal Resp effort Heart: RRR, No M/G/R Abd: Soft, NT, ND, No masses, no HSM BS Present and normal Skin : no acute changes, warm and dry. No rash Ext: No Edema, cyanosis . pp 2 + grady;at symmetric. No Calf Tenderness bilat Neuro: non focal, able to move all extremities at will Psyche: A and Ox 4, Affect: flat Objective Labs 05/21/24 14:00 05/21/24 14:00 Labs: Laboratory Results - last 24 hr 05/21/24 05/21/24 14:00 20:22 WBC 11.5 H RBC 4.55 Hgb 13.6 Hct 39.5 L MCV 86.8 MCH 29.9 MCHC 34.5 RDW 14.1 Plt Count 262 Neut % (Auto) 86.4 H Lymph % (Auto) 6.3 L [place] % (Auto) 7.0 Eos % (Auto) 0.0 L Baso % (Auto) 0.3 Neut # (Auto) 9900 H Lymph # (Auto) 700 L [place] # (Auto) 800 Eos # (Auto) 0 Baso # (Auto) 0 PT 14.0 H INR 1.2 Sodium 126 L Potassium 3.7 Chloride 91 L Carbon Dioxide 24 BUN 21 H Creatinine 0.87 Estimated GFR > 60 BUN/Creatinine Ratio 24.1 H Glucose 103 Lactate 1.2 Calcium 9.3 Total Bilirubin 1.7 H AST 28 ALT 28 Alkaline Phosphatase 66 Troponin I < 0.012 NT-Pro-B Natriuret Pep 131 Total Protein 7.3 Albumin 4.5 Globulin 2.8 Albumin/Globulin Ratio 1.6 Ur Random Sodium 46 SARS-CoV-2 (PCR) Negative Influenza A (RT-PCR) Flu a positive H Influenza B (RT-PCR) Flu b negative RSV (PCR) Negative Assessment & Plan Assessment and plan (1) Influenza A: Problem details: Pt has had flu like symptoms for > 7-10 days, Tamiflu not effective at this point, so not started. Status: Acute (2) Acute respiratory failure with hypoxia: Problem details: Sec to Pneumonia, and recent Influenza A Abx started in ED, Ceftriaxone and Azithromycin, continue same. Cont O2 sats monitoring, keeping sats > 93% currently on 3 L supp O2 sats at 97% Status: Acute (3) Hyponatremia: Problem details: Likely sec to decreased oral intake. Recd NS 1 L in ED, shall monitor electrolytes. Status: Acute Time-Based Coding :: [TOTAL MINUTES] spent with patient and on the chart (including review of chart, obtaining history, exam, reviewing outside data, placing orders, documenting exam and treatment plan, and counseling patient) on [DATE].
[2024-05-22 06:16] LABS: Add Manual Diff / Slide Review NO; Basophils Absolute Auto 100 /uL (0-100); Basophils Percent Auto 1.1 % (0-2); Eosinophils Absolute Auto 0 /uL (0-450); Eosinophils Percent Auto 0.4 % (2-4); Hematocrit 35.8 % (41-53); Hemoglobin 12.8 g/dL (13.5-17.5); Lymphocytes Absolute Auto 800 /uL (1100-4500); Lymphocytes Percent Auto 8.9 % (25-40); Mean Corpuscular HGB Conc 35.8 % (30-36); Mean Corpuscular Hemoglobin 30.6 PG (26-34); Mean Corpuscular Volume 85.6 fL (80-100); Monocytes Absolute Auto 700 /uL (0-900); Monocytes Percent Auto 7.3 % (3-14); Neutrophils Absolute Auto 7800 /uL (1500-7000); Neutrophils Percent Auto 82.3 % (50-75); Platelet Count 276 X10^3/uL (150-400); Red Blood Cell Count 4.19 X10^6/uL (4.5-5.9); Red Cell Distribution Width 14.3 % (11.6-14.8); White Blood Cell Count 9.5 X10^3/uL (4.5-11.0)
[2024-05-22 06:28] LABS: Alanine Aminotransferase 22 IU/L (<50); Albumin 3.6 g/dL (3.5-5.0); Albumin Globulin Ratio 1.3 (1.0-2.8); Alkaline Phosphatase 57 U/L (38-126); Aspartate Aminotransferase 22 IU/L (17-59); BUN Creatinine Ratio 24.6 (6-22); Bilirubin Total 1.6 mg/dL (0.2-1.3); Blood Urea Nitrogen 17 mg/dL (9-20); Calcium 8.9 mg/dL (8.4-10.2); Carbon Dioxide 22 mmol/L (22-32); Chloride 93 mmol/L (98-107); Estimated Glomerular Filt Rate > 60 mL/min (>60); Globulin 2.7 g/dL (1.7-4.1); Glucose 87 mg/dL (80-110); HEMOLYSIS < 15 (0-50); Magnesium 1.8 mg/dL (1.6-2.3); Potassium 3.5 mmol/L (3.4-5.1); Sodium 125 mmol/L (137-145); Total Protein 6.3 g/dL (6.3-8.2)
[2024-05-22 06:32] LABS: Appearance Urine UA CLEAR; Bilirubin Urine UA 1+ (NEGATIVE); Color Urine UA ORANGE; Glucose Urine UA NEGATIVE (Negative); Ketones Urine UA 2+ (NEGATIVE); Leukocyte Esterase Urine UA NEGATIVE (NEGATIVE); Nitrite Urine UA NEGATIVE (Negative); Occult Blood Urine UA NEGATIVE (Negative); Protein Urine UA 2+ (Negative); Urobilinogen Urine UA >=8.0 E.U./dL (0.2); pH Urine UA 6.5 (4.5-8.0)
[2024-05-22 06:38] LABS: Ictotest Urine Negative (Negative); Urine Volume 10mL (spun)
[2024-05-22 06:39] LABS: Bacteria Urine Occasional (0-1); Culture Indicated Urine Cult Not Indicated; Mucus Urine 1+ (Negative); RBC Urine 0-1/HPF (0-5/HPF); Squamous Epithelial Cell Urine 0-1 /HPF (0-5/HPF); WBC Urine None Seen (0-5/HPF)
--- NOTE | 2024-05-22 07:19 | P.PN_ITS ---
Subjective Subjective Interval history: Summary: Renan Pérez is an 89 y/o M, with history of HTN, HLD, BPH, Severe hearing loss, who was brought from home sec to [facility], to ED for evaluation. History is limited as pt is very hard of hearing. History obtained from chart review and ED note. Apparently pt has been coughing x 2 weeks,. with productive sputum of greyish color, no hemoptysis, no fevers or chills or CP reported. he had generalized weakness, and decreased apatite, he had some low back pain with coughing bouts. No N/V/ D, or abd pain No Dysuria. No light headedness or syncope. No peripheral edema or orthopnea. Many family members ill with flu like symptoms. In ED he was hypoxic O2 sats on RA : 88%, was put on 3 L O2 nc with O2 sats improving to 95-97% He was tachypneic. and Afebrile EKG : NSR HR 75, no acute St- T wave changes CXR: Patchy bilat pulmonary opacities suspicious Labs : WBC 11.4 K, Sodium 126 Cl 91, Trop and probnp and Lactate not elevated Resp swab + for Influenza A He had bl cx done, and started on Ceftriaxone and Azithromycin , and 1 L NS, and referred to Hospitalist team for admission. S: He was still short of breath, hypoxemic, and oxygen. He was coughing a lot as well and is quite weak with a 2 person max assist. His 2 daughters are with him when I recommended least another day in the hospital for antibiotics, Tamiflu, and therapy. Exam Vital Signs (past 8 hours): - 05/22/24 00:08 05/22/24 04:21 Temperature 98.3 F 98.3 F Pulse Rate 68 76 Respiratory Rate 16 16 Blood Pressure 123/70 133/73 Pulse Oximetry 94 93 Oxygen Flow Rate 2.5 2.5 Oxygen Delivery Method Nasal Cannula Oxygen Flow Rate 2.5 Narrative Exam Narrative: NAD, alert and oriented. Fluent speech. Lungs are notable for scattered rhonchi, increased rate and effort. Heart is regular, no murmur gallop or rub. Abdomen is soft, non distended. Extremities are free of edema. Objective Labs 05/22/24 05:40 05/22/24 05:40 Labs: Laboratory Results - last 24 hr 05/21/24 05/21/24 05/22/24 14:00 20:22 05:40 WBC 11.5 H 9.5 RBC 4.55 4.19 L Hgb 13.6 12.8 L Hct 39.5 L 35.8 L MCV 86.8 85.6 MCH 29.9 30.6 MCHC 34.5 35.8 RDW 14.1 14.3 Plt Count 262 276 Neut % (Auto) 86.4 H 82.3 H Lymph % (Auto) 6.3 L 8.9 L [place] % (Auto) 7.0 7.3 Eos % (Auto) 0.0 L 0.4 L Baso % (Auto) 0.3 1.1 Neut # (Auto) 9900 H 7800 H Lymph # (Auto) 700 L 800 L [place] # (Auto) 800 700 Eos # (Auto) 0 0 Baso # (Auto) 0 100 PT 14.0 H INR 1.2 Sodium 126 L 125 L Potassium 3.7 3.5 Chloride 91 L 93 L Carbon Dioxide 24 22 BUN 21 H 17 Creatinine 0.87 0.69 Estimated GFR > 60 > 60 BUN/Creatinine Ratio 24.1 H 24.6 H Glucose 103 87 Lactate 1.2 Calcium 9.3 8.9 Magnesium 1.8 Total Bilirubin 1.7 H 1.6 H AST 28 22 ALT 28 22 Alkaline Phosphatase 66 57 Troponin I < 0.012 NT-Pro-B Natriuret Pep 131 Total Protein 7.3 6.3 Albumin 4.5 3.6 Globulin 2.8 2.7 Albumin/Globulin Ratio 1.6 1.3 TSH 3.20 Urine Color [place] Urine Appearance Clear Urine pH 6.5 Ur Specific [place] 1.020 Urine Protein 2+ H Urine Glucose (UA) Negative Urine Ketones 2+ H Urine Occult Blood Negative Urine Nitrate Negative Urine Bilirubin 1+ H Ur Bilirubin Confirm Negative Urine Urobilinogen >=8.0 Ur Leukocyte Esterase Negative Urine RBC 0-1/hpf D Urine WBC None seen Ur Squamous Epith Cells 0-1 /hpf Urine Bacteria Occasional (0-1) Urine Mucus 1+ H Ur Culture Indicated? 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 Retinal detachment HTN (hypertension) Surgical History History of hip replacement S/P colonoscopy with polypectomy S/P TURP (status post transurethral resection of prostate) H/O cataract removal with insertion of prosthetic lens Family History Sister Cancer Son Cancer Daughter Hyperlipidemia Social History marital status: number of children: 3 household members: none Smoking Status: Former smoker alcohol intake: never caffeine: Yes Type(s) of exercise: walking and regular exercise frequency: decline to answer Assessment & Plan Assessment & Plan narrative: (1) Influenza A: (2) Acute respiratory failure with hypoxia: Sec to Pneumonia, and recent Influenza A Abx started in ED, Ceftriaxone and Azithromycin, continue same. Cont O2 sats monitoring, keeping sats > 93% currently on 3 L supp O2 sats at 97% (3) Hyponatremia: Likely sec to decreased oral intake. Recd NS 1 L in ED, shall monitor electrolytes. Plan: -add Tamiflu, given the uncertainty of the duration of symptoms. -continue IV antibiotics. -wean oxygen as able. -antitussive therapy. -physical therapy. LIDA is May 24. Time-Based Coding :: [TOTAL MINUTES] spent with patient and on the chart (including review of chart, obtaining history, exam, reviewing outside data, placing orders, documenting exam and treatment plan, and counseling patient) on [DATE].
[2024-05-22] MEDS: ENOXAPARIN 40 MG/0.4 ML SYRINGE SUBCUT (09:13)
[2024-05-22] MEDS: OSELTAMIVIR 75 MG CAPSULE PO ×2 (11:26→20:47)
[2024-05-22] MEDS: guaiFENesin Solution 100 MG/5 ML UDC 200 MG PO ×2 (11:26→18:03)
[2024-05-22] MEDS: SODIUM CHLORIDE 0.9% 1,000 ML 100 ML IV (12:26)
--- NOTE | 2024-05-22 14:52 | CM.DANOTE ---
Initial DCP Assessment Visit Note Reviewed EMR and team rounds for medical status and updates. This MECHANICAL LABORATORY TECHNICIAN did not meet with pt in the room due to cough and influenza-A virus. Pt lives independently in his own home. He has a daughter that also lives in [place] and is his primary support person. His daughter will also transport him home once he's medically stable for discharge, likely another 2-days. Payor: [employer] Medicare PCP: Huong Roca Pt is a 89 year-old M who presented to the ED last eveningwith c/o weakness, cough, and decreasing appetite. He was found to be hypoxic, and was placed on 2-3LO2 with good benefit. Labs were positive for influenza-A, and his chest x-ray confirmed pneumonia. Pt was then admitted for further tx/monitoring. DCP will continue to monitor for any further evolving home d/c assistance/resource needs prior to his departure. Discharge Planning/Care Management CM Discharge Assessment Start: 05/22/24 14:48 Freq: Status: Active Protocol: Document 05/22/24 14:48 DPL (Rec: 05/22/24 14:52 DPL [id number]) Discharge Planning Assessment Assigned Service Delivery Manager CRISTI Trujillo Advance Directives? No Advance Directives on File No History Provided By Patient,Medical Record Has Patient been admitted in last 30 No days? Prior Living Arrangements House Household Members none Type of transporation used prior to Drives own vehicle admit Independent with ADL's Yes Is patient alert and oriented? Yes Comment N/A Caregiver for Another No Comment N/A Comment N/A Patient/Family Preference Shelter Facility Transportation Arrangement daughter Referrals Initiated None needed If patient plan is SNF: Has PASSR been Yes completed? Review Status In Process Please Provide Date Initial DC 05/22/24 Assessment Was Performed
[2024-05-22] MEDS: cefTRIAXone 1,000 MG in SODIUM CHLORIDE 0.9% 100 ML 200 MG IV (18:04)
[2024-05-22] MEDS: AZITHROMYCIN 500 MG in DEXTROSE 5% IN WATER 250 ML 250 MG IV (19:01)
[2024-05-22] MEDS: AMLODIPINE 5 MG TABLET 10 MG PO (20:47)
[2024-05-22] MEDS: TAMSULOSIN 0.4 MG CAPSULE PO (20:48)
[2024-05-23] VITALS (7 sets, daily range): BP systolic 107–147; BP diastolic 52–77; PULSE 61–76; RESP 16–20; TEMP 36.4–36.7; O2SAT 93–96
[2024-05-23] MEDS: SODIUM CHLORIDE 0.9% 1,000 ML 100 ML IV (00:03)
[2024-05-23 06:35] LABS: Add Manual Diff / Slide Review NO; Basophils Absolute Auto 100 /uL (0-100); Basophils Percent Auto 1.2 % (0-2); Eosinophils Absolute Auto 100 /uL (0-450); Eosinophils Percent Auto 0.7 % (2-4); Hematocrit 34.6 % (41-53); Hemoglobin 12.2 g/dL (13.5-17.5); Lymphocytes Absolute Auto 900 /uL (1100-4500); Lymphocytes Percent Auto 8.9 % (25-40); Mean Corpuscular HGB Conc 35.1 % (30-36); Mean Corpuscular Hemoglobin 30.1 PG (26-34); Mean Corpuscular Volume 85.8 fL (80-100); Monocytes Absolute Auto 1000 /uL (0-900); Monocytes Percent Auto 10.7 % (3-14); Neutrophils Absolute Auto 7600 /uL (1500-7000); Neutrophils Percent Auto 78.5 % (50-75); Platelet Count 293 X10^3/uL (150-400); Red Blood Cell Count 4.03 X10^6/uL (4.5-5.9); Red Cell Distribution Width 14.1 % (11.6-14.8); White Blood Cell Count 9.7 X10^3/uL (4.5-11.0)
[2024-05-23 06:48] LABS: Alanine Aminotransferase 18 IU/L (<50); Albumin 3.3 g/dL (3.5-5.0); Albumin Globulin Ratio 1.3 (1.0-2.8); Alkaline Phosphatase 68 U/L (38-126); Aspartate Aminotransferase 19 IU/L (17-59); BUN Creatinine Ratio 25.4 (6-22); Bilirubin Total 1.4 mg/dL (0.2-1.3); Blood Urea Nitrogen 16 mg/dL (9-20); Calcium 8.5 mg/dL (8.4-10.2); Carbon Dioxide 21 mmol/L (22-32); Chloride 96 mmol/L (98-107); Estimated Glomerular Filt Rate > 60 mL/min (>60); Globulin 2.6 g/dL (1.7-4.1); Glucose 90 mg/dL (80-110); HEMOLYSIS < 15 (0-50); Magnesium 1.9 mg/dL (1.6-2.3); Potassium 3.4 mmol/L (3.4-5.1); Sodium 126 mmol/L (137-145); Total Protein 5.9 g/dL (6.3-8.2)
--- NOTE | 2024-05-23 07:26 | P.PN_ITS ---
Subjective Subjective Interval history: Summary: Renan Pérez is an 89 y/o M, with history of HTN, HLD, BPH, Severe hearing loss, who was brought from home sec [facility], to ED for evaluation. Apparently pt has been coughing x 2 weeks,. with productive sputum of greyish color, no hemoptysis, no fevers or chills or CP reported. He had generalized weakness, and decreased apatite. He is being treated for influenza a and possible pneumonia. He lives in [place] with a daughter. S: He has a persistent cough with pain. He remains on oxygen. No abdominal pain. Exam Vital Signs (past 8 hours): - 05/23/24 00:00 05/23/24 05:00 Temperature 98.1 F 97.5 F L Pulse Rate 62 62 Respiratory Rate 16 18 Blood Pressure 107/52 L 126/62 Pulse Oximetry 93 93 Oxygen Flow Rate 1 2 Oxygen Delivery Method Nasal Cannula Oxygen Flow Rate 2 Narrative Exam Narrative: NAD, alert and oriented. Fluent speech. Hard of hearing. 3 L of oxygen N/C. Lungs are notable for scattered rhonchi, normal rate and effort. Heart is regular, no murmur gallop or rub. Abdomen is soft, non distended. Extremities are free of edema. Objective ECG Impression: Intervals [place] Rate: 75 P: -7 HI: 138 QRS: -3 QRSD: 104 T: 41 QT: 398 QTc: 444 Interpretive Statements Normal sinus rhythm Electronically Signed On 05-21-2024 18:29:21 PST by Milo León Imaging Chest x-ray: Radiologist's impression: IMPRESSION: Patchy bilateral pulmonary opacities suspicious for pneumonia or possibly edema. Labs 05/23/24 05:30 05/23/24 05:30 Labs: Laboratory Results - last 24 hr 05/23/24 05:30 WBC 9.7 RBC 4.03 L Hgb 12.2 L Hct 34.6 L MCV 85.8 MCH 30.1 MCHC 35.1 RDW 14.1 Plt Count 293 Neut % (Auto) 78.5 H Lymph % (Auto) 8.9 L [place] % (Auto) 10.7 Eos % (Auto) 0.7 L Baso % (Auto) 1.2 Neut # (Auto) 7600 H Lymph # (Auto) 900 L [place] # (Auto) 1000 H Eos # (Auto) 100 Baso # (Auto) 100 Sodium 126 L Potassium 3.4 Chloride 96 L Carbon Dioxide 21 L BUN 16 Creatinine 0.63 L Estimated GFR > 60 BUN/Creatinine Ratio 25.4 H Glucose 90 Calcium 8.5 Magnesium 1.9 Total Bilirubin 1.4 H AST 19 ALT 18 Alkaline Phosphatase 68 Total Protein 5.9 L Albumin 3.3 L Globulin 2.6 Albumin/Globulin Ratio 1.3 PFSH Medical History Hx of chronic arthritis Cataract Femur fracture, right Hearing loss 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 Influenza A, present on admission and active. 2. Acute respiratory failure with hypoxia, present on admission and active. 3. Hyponatremia, present on admission and active. -likely hypovolemic/solute deficiency. Plan: -continue IV antibiotics. -Tamiflu -wean oxygen as able. -saline at 100 per hour, check urine sodium. Remains at 126. -ECHO to assess LVEF. LIDA: 05/24-. Time-Based Coding :: [TOTAL MINUTES] spent with patient and on the chart (including review of chart, obtaining history, exam, reviewing outside data, placing orders, documenting exam and treatment plan, and counseling patient) on [DATE].
[2024-05-23] MEDS: BENZONATATE 100 MG CAPSULE PO ×2 (09:53→17:27)
[2024-05-23] MEDS: OSELTAMIVIR 75 MG CAPSULE PO ×2 (09:54→20:21)
[2024-05-23] MEDS: MULTIVITAMIN 1 TABLET 1 TAB PO (09:54)
[2024-05-23] MEDS: ENOXAPARIN 40 MG/0.4 ML SYRINGE SUBCUT (09:55)
--- NOTE | 2024-05-23 10:05 | DI.ECHO.S_ITS ---
[facility] +---------+ [facility] : : [address] : [place] : : [id number] : : Phone: [phone] Echocardiogram Report + + :Name: TAQUERIA ODONNELL Study Date: 05/23/2024 Height: 71 in : :Hospital ReadingLocation: Weight: 175 lb : : Gender: Male BSA: 2.0 m2 : :: 1935 Age: 89 yrs BP: 119/53 mmHg: :Reason For Study: DYSPNEA : :Ordering Physician: MARU, : :RAOUL Sal Performed By: Charity Hood : :Referring: RAOUL MAHONEY : + + Interpretation Summary Left ventricular ejection fraction is estimated to be 50 +/- 5%. The right ventricle is mildly dilated. There is mild aortic regurgitation. There is mild tricuspid regurgitation. The right ventricular systolic pressure is estimated to be at least 39 mmHg based on an estimated right atrial pressure of 15 mm Hg. Procedure: A two-dimensional transthoracic echocardiogram with color flow and Doppler was performed. The study quality was technically difficult. There is no prior echocardiogram noted for this patient. Attempted to scan patient on left lateral decubitus without success, patient had significant coughing attacks throughout, scanned in a supine and seated position. The patient was in sinus rhythm with heart rates between 67-77 bpm during the exam. Left Ventricle: The left ventricle is normal in size and wall thickness. Left ventricular ejection fraction is estimated to be 50 +/- 5%. There are no obvious focal wall motion abnormalities noted but poor endocardial definition reduces the sensitivity for the detection of such. Right Ventricle: The right ventricle is mildly dilated. The right ventricular systolic function is normal. Atria: The left atrium is not well visualized. The left atrium grossly appears normal in size. Right atrium not well visualized. The right atrium grossly appears normal in size. Mitral Valve: The mitral valve leaflets appear to open well. There is trace mitral regurgitation. Aortic Valve: The aortic valve is not well visualized. There is no aortic valve stenosis. There is mild aortic regurgitation. Tricuspid Valve: The tricuspid valve leaflets are thin and pliable. There is mild tricuspid regurgitation. The right ventricular systolic pressure is estimated to be at least 39 mmHg based on an estimated right atrial pressure of 15 mm Hg. Pulmonic Valve: The pulmonic valve is not well visualized. Great Vessels: The aortic root is borderline dilated. The ascending aorta is moderately enlarged. The IVC is dilated (diameter is greater than 2.1 cm) and it collapses less than 50% with a sniff. This suggests a high right atrial pressure of 15 mm Hg. Pericardium/ Pleura There is no pericardial effusion. There is no pleural effusion. MMode/2D Measurements & Calculations LVIDd: 5.6 cm LVOT diam: 2.4 cm LVIDs: 4.0 cm Ao root diam: 4.1 cm FS: 28.6 % asc Aorta Diam: 4.4 cm IVSd: 0.94 cm LVPWd: 0.68 cm LV w[place]. diameter/BSA (cm/m^2): 2.8 LV sys. diameter/BSA (cm/m^2): 2.0 LA dimension: 2.8 cm RA long axis: 4.5 cm LA A4 area: 16.0 cm2 RA area: 12.7 cm2 LA length (vol): 4.0 cm RA vol: 30.6 ml RA : 15.4 ml/m2 IVC diam: 2.7 cm RVD1 (basal): 4.1 cm RVD2 (mid): 4.1 cm TAPSE: 2.7 cm Doppler Measurements & Calculations Ao V2 max: 165.3 cm/sec LVOT Max [place]: 107.0 cm/sec Ao V2 mean: 111.3 cm/sec LV V1 max P.6 mmHg Ao max P.9 mmHg LV V1 VTI: 25.3 cm Ao mean P.6 mmHg KELLEN(I,D): 3.9 cm2 Ao V2 VTI: 30.2 cm KELLEN(V,D): 3.0 cm2 sev ratio: 0.84 KELLEN indexed to BSA (cm^2/m^2): 2.0 MV E max dylon: 60.2 cm/sec TR max dylon: 247.0 cm/sec MV A max dylon: 60.6 cm/sec TR max P.4 mmHg MV E/A: 0.99 PA V2 max: 100.8 cm/sec Med Peak E' Dylon: 6.8 cm/sec PA V2 mean: 67.8 cm/sec E/E' med: 8.9 PA mean P.1 mmHg Lat Peak E' Dylon: 8.5 cm/sec PA pr(Accel): 30.2 mmHg E/E' lat: 7.1 E/e' average: 8.0 MV dec time: 0.24 sec SV(LVOT): 118.7 ml Reading Physician:01:39 PM
--- NOTE | 2024-05-23 10:13 | PT.IIE ---
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 Femur fracture, right Hearing loss HTN (hypertension) Hx of chronic arthritis Osteoarthritis of right knee Retinal detachment Physical Therapy Inpatient Evaluation/Re-Eval M1 PT/OT-IP Prior Functional Status Start: 05/23/24 08:44 Freq: NEEDED Status: Active Protocol: Document 05/23/24 08:44 MB (Rec: 05/23/24 10:13 MB [id number]) Medical Review Prior Functional Status Medical History Reviewed Yes Communication NAVAJO and daughter and KENDALL answer most questions d/t pt has poor ability to answer questions given NAVAJO and therapist masking d/t droplet precautions Mobility and Gait Mod I with rollator and daughter reports pt has not had falls at home Activities of Daily Living and IADL's Mod I with bathing and dressing, does not drive, lives in home and daughter and KENDALL live there as well Social History Household Members family Living Arrangements House Number of Floors (Floors) One Floor Number of Stairs To Enter/Railing? 5 steps with B rail to enter Home Environment High Toilet,Tub/Shower Home Equipment Four Wheel Walker,Tub Transfer Bench,Hand Held Shower,Grab Bars In Shower Employment Status Retired M2 PT-IP Current Condition Start: 05/23/24 08:44 Freq: NEEDED Status: Active Protocol: Document 05/23/24 08:44 MB (Rec: 05/23/24 10:13 MB [id number]) Physical Therapy Current Condition Current Condition Evaluation Date 05/23/24 Treatment Diagnosis Influenza A M3 PT-IP Subjective Start: 05/23/24 08:44 Freq: NEEDED Status: Active Protocol: Document 05/23/24 08:44 MB (Rec: 05/23/24 10:13 MB [id number]) Subjective Physical Therapy Visit Type Type Initial Evaluation Visit Start Time 08:44 Visit Stop Time 09:25 Number of PARTNERSHIP DEVELOPMENT MANAGER Visits 0 Physical Therapy Visit Comments Patient Comments Pt is pleasant, joking, has severe trouble hearing PT and answering questions Therapy Pain Assessment Pain When Pain Assessed At Rest Pain Present Pain Present Pain Reported Location Lower back Scale Used Did not give a number M4 PT-IP Mobility and Gait Start: 05/23/24 08:44 Freq: NEEDED Status: Active Protocol: Document 05/23/24 08:44 MB (Rec: 05/23/24 10:13 MB [id number]) PT-Bed Mobility Assessment Supine to Sit Supine to Sit Standby Assistance,1 Person Assistance,Head of Bed Elevated,Bedrails Scooting Scooting Up and Down in Bed Standby Assistance PT-Transfer Assessment Sit to and From Stand Sit to and from Stand Moderate Assistance,1 Person Assistance,Use of Upper Extremities Equipment Transfer Assistive Device Gait Belt,Front Wheeled Walker Orthotic/Prosthetic Devices or Brace: No Transfers Transfer Destination Chair Transfer Technique Stepping Transfer Ability Level of Assist Minimal Assistance,1 Person Assistance,Use of Upper Extremities Comments Mobility Comments O2 sats on 2L are 93% at rest and with sitting EOB and after short mobility, HR in the 70s BPM. Cues to push up from the bed and pt tends to reach for rolling walker Gait Assessment Gait Gait Assistance Required: Minimum Assistance Distance (Feet) 2 Able to Maintain Weight Bearing Status Yes During Gait Assistive Devices Assistive Device Gait Belt,Front Wheeled Walker Orthotic/Prosthetic Devices or Brace: No Gait Deviations General Gait Pattern Antalgic,Decreased Stride Length,Decreased Feet Clearance,Flexed Trunk,Step-to Gait,Wide Based Gait Factors Limiting Gait Function Factors Limiting Gait Function Decreased Activity Tolerance, Decreased Strength,Difficulty Following Directions,Limited Range of Motion,Pain,Poor Balance,Poor Safety Awareness PT-Balance Assessment Sitting Balance and Reactions Static Sitting Balance Ability Good Dynamic Sitting Balance Ability Fair Standing Balance and Reactions Static Standing Balance Ability Fair Dynamic Standing Balance Ability Poor Device Used RW M5 PT-IP Objective Assessments Start: 05/23/24 08:44 Freq: NEEDED Status: Active Protocol: Document 05/23/24 08:44 MB (Rec: 05/23/24 10:13 MB [id number]) Orientation Orientation/Cognition Level of Alertness Alert Orientation Name,Age,Birthday,Month,Year, Day of Week,Place,Situation Language Function Ability Hard of Hearing Safety Awareness Decreased Safety Awareness Memory Description No Deficits Noted Gross Range of Motion Upper Extremity ROM Impairments Pt has trouble following all ROM, MMT and sensory commands given NAVAJO and PT masked d/t droplet precautions, also, pt with quick fatigue Lower Extremity ROM Impairments Pt has trouble following all ROM, MMT and sensory commands given NAVAJO and PT masked d/t droplet precautions, also, pt with quick fatigue. Functional shortening/tension trunk, hip and knee flexors Strength Comments Strength Comments Great toe extension right 2+/5 , left 3/5, B knee extension 3 +/5 and pt has trouble following all other MMT commands Coordination Assessment Assessment Coordination Comments NT Sensation Assessment Comments Sensation Comments NT Muscle Tone Muscle Tone WNL Yes M6 PT-IP Treatment Start: 05/23/24 08:44 Freq: NEEDED Status: Active Protocol: Document 05/23/24 08:44 MB (Rec: 05/23/24 10:13 MB [id number]) Physical Therapy Treatment Education Education Provided Precautions,Safety M7 PT-IP Assessment and Plan Start: 05/23/24 08:44 Freq: NEEDED Status: Active Protocol: Document 05/23/24 08:44 MB (Rec: 05/23/24 10:13 MB [id number]) PT Summary Assessment and Plan Potential Rehabilitation Potential Fair Status of Condition at Evaluation Evolving Summary Impairments Pain,ROM,Strength,Balance,Bed Mobility,Transfers,Gait, Activity Tolerance Progress Towards Goals Slow Progress due to Activity Tolerance Assessment Summary Pt is a pleasant 89 y/o male adm with influenza A and daughter and KENDALL with whom he lives present during evaluation. Pt is very NAVAJO and with PT masking d/t droplet precautions, pt has trouble understanding all questions and cues and family answers most questions. He has decreased activity tolerance and safety awareness and currently requires min to mod A for short mobility bed to chair with walker. O2 sats on 2L are 93% and HR 76 BPM. Family would like to take pt home at d/c and anticipate he may move better as acute influenza improves. Recommend HHPT safety consult at d/c and 24 hour assistance, up to chair with nsg and to BR with assistance when able. Goals Bed Mobility Goal Independent Transfer Goal Standby Assistance,Front Wheeled Walker,Four Wheeled Walker Gait Goal Standby Assistance,Front Wheel Walker,Four Wheel Walker Gait Distance 75 Other Goals Pt will ascend and descend 5 steps with 2 rails and no more than CGA to allow safe home entrance. Days to Meet Goals 5 Frequency of Treatment Frequency Of Treatment Once a Day Treatment Plan Physical Therapy Treatment Plan Bed Mobility Training,Transfer Training,Gait Training, Therapeutic Exercise,Balance Retraining,Discharge Planning, Hot or Cold Pack,Neuromuscular Re-ed,Coordination Retraining ,Manual Therapy Recommendations To Nursing Amount of Assist Needed 1 Person Assist Discharge Recommendations PT Discharge Recommendations Home with 10/10 Assist Available,Home Health Transportation Needs at Discharge Private Vehicle - PT assist x1
--- NOTE | 2024-05-23 10:22 | CM.DPC ---
DCP Cont. Reviewed EMR and team rounds for status updates. Pt is still on 2LO2, still having a cough, not yet ready for d/c. Continuing to monitor for any final CM d/c assistance needs.
[2024-05-23 12:09] LABS: Osmolality Urine 893 mOsmol/kg (.)
--- NOTE | 2024-05-23 13:39 | DIET.CONS ---
Dietary Consultation Note Admission Date: 05/21/2024 18:11 Assessment: 89 y M admitted for influenza A, acute resp failure. Nutrition consulted for poor PO intakes. Met with pt at bedside. Pt reports usual 2-3 meals per day, but last 1-2 wks low appetite with only a few bites, estimated around 25% or less intakes at meals. Unable to make self eat more. Unsure of weight loss or looser feeling clothes. But reports UBW has been steady at 216 lb (98.2 kg). Has Ensure at bedside and 1/2 is gone. Tolerating that between meals. Open to getting another at dinner. Ht: 180.34 cm Wt: 79.379 kg BMI: 24.4 UBW: 89.353 kg on 04/24/24 (-11% weight loss within 1 month, severe) Last BM: 05/19/24 (05/21/24 19:14) MNA: 14 Sang Score: 17 Diet: 05/21/24 Dinner General (Regular) Diet Diet Modifications: Nutrition Percent Meal Consumed 25% 05/22/24 18:00 Percent Meal Consumed 25% 05/22/24 10:14 Labs: RBC 4.03 X10^6/uL (4.5-5.9) L 05/23/24 05:30 Hgb 12.2 g/dL (13.5-17.5) L 05/23/24 05:30 Hct 34.6 % (41-53) L 05/23/24 05:30 Creatinine 0.63 mg/dL (0.66-1.25) L 05/23/24 05:30 Lactate 1.2 mmol/L (0.7-2.1) 05/21/24 14:00 NT-Pro-B Natriuret Pep 131 pg/mL (<450) 05/21/24 14:00 Nutrition Diagnosis: Severe acute protein calorie malnutrition related to inadequate oral intake as evidenced by 11% weight loss within 1 month (severe) and <50% of estimated energy intake for 1-2 weeks (severe) Interventions: ONS BID-TID as tolerated EER: 2000 kcals (25 kg/kcal per BMI) 80 g protein (1 g/kg) Monitoring/Evaluations: PO intakes Electronically Signed by: Lakisha He 05/23/24 13:39 Clinical Dietitian [address] [id number]
[2024-05-23 14:07] LABS: Sodium Urine Random 47 mmol/L (30-90)
[2024-05-23] MEDS: cefTRIAXone 1,000 MG in SODIUM CHLORIDE 0.9% 100 ML 200 MG IV (17:25)
[2024-05-23] MEDS: ACETAMINOPHEN 325 MG TABLET 650 MG PO (17:26)
[2024-05-23] MEDS: AZITHROMYCIN 500 MG in DEXTROSE 5% IN WATER 250 ML 250 MG IV (18:39)
[2024-05-23] MEDS: TAMSULOSIN 0.4 MG CAPSULE PO (20:21)
[2024-05-24 00:23] VITALS: BP 126/60; PULSE 63; RESP 19; TEMP 36.3; O2SAT 96
[2024-05-24 04:00] VITALS: BP 130/72; PULSE 74; RESP 18; TEMP 36.5; O2SAT 96
[2024-05-24 05:36] LABS: Add Manual Diff / Slide Review NO; Basophils Absolute Auto 100 /uL (0-100); Basophils Percent Auto 0.7 % (0-2); Eosinophils Absolute Auto 200 /uL (0-450); Eosinophils Percent Auto 1.6 % (2-4); Hematocrit 34.2 % (41-53); Hemoglobin 12.3 g/dL (13.5-17.5); Lymphocytes Absolute Auto 1000 /uL (1100-4500); Mean Corpuscular HGB Conc 35.9 % (30-36); Mean Corpuscular Hemoglobin 30.6 PG (26-34); Mean Corpuscular Volume 85.1 fL (80-100); Monocytes Absolute Auto 1200 /uL (0-900); Monocytes Percent Auto 12.8 % (3-14); Neutrophils Absolute Auto 7200 /uL (1500-7000); Neutrophils Percent Auto 74.9 % (50-75); Platelet Count 333 X10^3/uL (150-400); Red Blood Cell Count 4.02 X10^6/uL (4.5-5.9); Red Cell Distribution Width 13.9 % (11.6-14.8); White Blood Cell Count 9.7 X10^3/uL (4.5-11.0)
[2024-05-24 05:47] LABS: Alanine Aminotransferase 18 IU/L (<50); Albumin 3.3 g/dL (3.5-5.0); Albumin Globulin Ratio 1.2 (1.0-2.8); Alkaline Phosphatase 71 U/L (38-126); Aspartate Aminotransferase 18 IU/L (17-59); Bilirubin Total 1.8 mg/dL (0.2-1.3); Blood Urea Nitrogen 11 mg/dL (9-20); Calcium 8.4 mg/dL (8.4-10.2); Carbon Dioxide 22 mmol/L (22-32); Chloride 97 mmol/L (98-107); Estimated Glomerular Filt Rate > 60 mL/min (>60); Globulin 2.7 g/dL (1.7-4.1); Glucose 93 mg/dL (80-110); HEMOLYSIS < 15 (0-50); Magnesium 1.8 mg/dL (1.6-2.3); Potassium 3.3 mmol/L (3.4-5.1); Sodium 126 mmol/L (137-145)
[2024-05-24] MEDS: POTASSIUM CHLORIDE 20 MEQ TAB 40 MEQ PO (06:49)
[2024-05-24 07:30] VITALS: O2SAT 94
[2024-05-24 08:00] VITALS: BP 139/64; PULSE 70; RESP 22; TEMP 36.4; O2SAT 96
[2024-05-24] MEDS: MULTIVITAMIN 1 TABLET 1 TAB PO (09:24)
[2024-05-24] MEDS: OSELTAMIVIR 75 MG CAPSULE PO (09:24)
[2024-05-24] MEDS: ENOXAPARIN 40 MG/0.4 ML SYRINGE SUBCUT (09:24)
[2024-05-24] MEDS: ASPIRIN EC 81 MG TABLET PO (09:26)
--- NOTE | 2024-05-24 11:09 | P.DS_ITS ---
History of Present Illness History of Present Illness Date Patient Seen: 05/24/24 Time Patient Seen: 10:15 Date of Onset of Symptoms: 05/21/24 Chief complaint: cough,loss of appetite t-7 Narrative: Renan Pérez is an 89 y/o M, with history of HTN, HLD, BPH, Severe hearing loss, who was brought from home sec to [facility], [place], to ED for evaluation. History is limited as pt is very hard of hearing. History obtained from chart review and ED note. Apparently pt has been coughing x 2 weeks,. with productive sputum of greyish color, no hemoptysis, no fevers or chills or CP reported. he had generalized weakness, and decreased apatite, he had some low back pain with coughing bouts. No N/V/ D, or abd pain No Dysuria. No light headedness or syncope. No peripheral edema or orthopnea. Many family members ill with flu like symptoms. In ED he was hypoxic O2 sats on RA : 88%, was put on 3 L O2 nc with O2 sats improving to 95-97% He was tachypneic. and Afebrile EKG : NSR HR 75, no acute St- T wave changes CXR: Patchy bilat pulmonary opacities suspicious Labs : WBC 11.4 K, Sodium 126 Cl 91, Trop and probnp and Lactate not elevated Resp swab + for Influenza A He had bl cx done, and started on Ceftriaxone and Azithromycin , and 1 L NS, and referred to Hospitalist team for admission. Discharge Providers Provider Date of admission: 05/21/24 18:11 Discharge Date: 05/24/24 Primary care physician: Huong Thrasher PA-C Consults: 05/22/24 18:54 Consult to Physical Therapy Evaluate & Treat Comment: Physician Instructions: Evaluate and Treat 05/22/24 23:59 Consult to Dietitian, Adult Routine Comment: Reason For Exam: poor po intake Discharge provider: aCrl Santana MD Summary Hospital Course Discharge Diagnosis: 1. Influenza A infection. 2. Presumed secondary bacterial pneumonia due to 1. 3. Acute hypoxic respiratory failure due to 1 and 2. Hospital Course: The patient was admitted and treated with Tamiflu and broad-spectrum antibiotics. He improved significantly over the 1st 2-3 days and was able to get up and walk with assistance of family and nursing. Hypoxemia resolved and he oxygen and is normally on room air prior to discharge. He was feeling significantly better and interested in discharge home. Family felt comfortable returning home with him in discussion with joint decision-making with family and the patient involved in the discussion. No other issues arose. Status at Discharge Cognitive/behavioral status at discharge: oriented Functional status at discharge: uses cane/walker Overall status at discharge: patient is progressing back to baseline Time Spent with Patient Time spent: Greater than 30 minutes Exam Vital Signs (past 8 hours): - 05/24/24 04:00 05/24/24 07:30 05/24/24 08:00 Temperature 97.7 F 97.6 F Pulse Rate 74 70 Respiratory Rate 18 22 Blood Pressure 130/72 139/64 Pulse Oximetry 96 94 96 Oxygen Delivery Method Nasal Cannula Oxygen Flow Rate 2 2 2 05/24/24 09:34 Temperature Pulse Rate Respiratory Rate Blood Pressure Pulse Oximetry Oxygen Delivery Method Room Air Oxygen Flow Rate Oxygen Delivery Method Room Air Oxygen Flow Rate 2 Narrative Exam Narrative: NAD, alert and oriented. Fluent speech. Hard of hearing. Lungs with occasional rhonchi, otherwise clear to auscultation, normal rate and effort. Heart is regular, no murmur gallop or rub. Abdomen is soft, non distended. Extremities are free of edema. Objective Imaging Echo: Radiologist's impression: Left ventricular ejection fraction is estimated to be 50 +/- 5%. The right ventricle is mildly dilated. There is mild aortic regurgitation. There is mild tricuspid regurgitation. The right ventricular systolic pressure is estimated to be at least 39 mmHg based on an estimated right atrial pressure of 15 mm Hg. Chest x-ray: Radiologist's impression: Patchy bilateral pulmonary opacities suspicious for pneumonia or possibly edema. Labs 05/24/24 05:03 05/24/24 05:03 Labs: Laboratory Results - last 24 hr 05/21/24 05/23/24 05/24/24 20:22 12:15 05:03 WBC 9.7 RBC 4.02 L Hgb 12.3 L Hct 34.2 L MCV 85.1 MCH 30.6 MCHC 35.9 RDW 13.9 Plt Count 333 Neut % (Auto) 74.9 Lymph % (Auto) 10.0 L [place] % (Auto) 12.8 Eos % (Auto) 1.6 L Baso % (Auto) 0.7 Neut # (Auto) 7200 H Lymph # (Auto) 1000 L [place] # (Auto) 1200 H Eos # (Auto) 200 Baso # (Auto) 100 Sodium 126 L Potassium 3.3 L Chloride 97 L Carbon Dioxide 22 BUN 11 Creatinine 0.55 L Estimated GFR > 60 BUN/Creatinine Ratio 20.0 Glucose 93 Calcium 8.4 Magnesium 1.8 Total Bilirubin 1.8 H AST 18 ALT 18 Alkaline Phosphatase 71 Total Protein 6.0 L Albumin 3.3 L Globulin 2.7 Albumin/Globulin Ratio 1.2 Urine Osmolality 893 Ur Random Sodium 47 PFSH Medical History Cataract 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 Femur fracture, right Hearing loss HTN (hypertension) Hx of chronic arthritis Osteoarthritis of right knee Retinal detachment Surgical History H/O cataract removal with insertion of prosthetic lens History of hip replacement S/P colonoscopy with polypectomy S/P TURP (status post transurethral resection of prostate) Family History Sister Cancer Son Cancer Daughter Hyperlipidemia Social History marital status: number of children: 3 household members: family Smoking Status: Former smoker alcohol intake: never caffeine: Yes Type(s) of exercise: walking and regular exercise frequency: decline to answer Discharge Plan Discharge Plan Patient Disposition: Home Provider Discharge Comment: Followup with Huong Thrasher PA-C within 1 week Discharge orders & Medications Prescriptions: New cefuroxime axetil 500 mg tablet 500 mg PO BID Qty: 8 0RF Continued tamsulosin 0.4 mg capsule 0.4 mg PO BEDTIME multivitamin Tablet 1 tab PO DAILY aspirin 81 mg tablet,delayed release (DR/EC) 81 mg PO .COMPLEX Rx Instructions: 81 mg orally Mon, Wed, Fri nebivolol 5 mg tablet 5 mg PO BEDTIME amlodipine 10 mg tablet 10 mg PO BEDTIME Follow up/Referrals: Huogn Thrasher PA-C [Primary Care Provider] - Visit Report/Discharge Packet Instructions: DI for Pneumonia -- Adult, DI for Influenza -- Adult Stand Alone Forms: Patient Portal/API, Stroke Signs & Symptoms Discharge Data Primary Care Provider: Mallery,Huong M Quality MIPS - Admit I confirm the patient?s Advance Care Plan is present, Code status is documented, Surrogate decision maker is in patient?s record [If Yes, STOP here]: Yes [facility] - Meds 'Current medications' to include all prescriptions, [id number] products, herbals, cannabis/cannabidiol products, and vitamin/mineral/dietary (nutritional) supplements. I have utilized all available resources to obtain, update, or review the patient?s current medications. [If Yes, STOP here]: Yes [facility] - DC The patient has a history of heart transplant or Left Ventricular Assist Device (LVAD). If yes, STOP here.: No The patient has current or prior documentation of left ventricular ejection fraction (LVEF) less than or equal to 40%, or moderate or severely depressed left ventricular systolic function.: No A. The patient was prescribed or already taking an Angiotensin-Converting Enzyme (PARRISH) Inhibitor, or Angiotensin Receptor Murray (ARB).: No B. The patient was prescribed or already taking a beta-murray. [If Yes to Both A & B, STOP here]: Yes Patient not prescribed/taking PARRISH or ARB, no reason given.: No Patient not prescribed/taking beta-murray, no reason given.: No PROFEE Charge Codes Discharge inpatient/observation: 04304
--- NOTE | 2024-05-24 11:15 | CM.DPNOTE ---
DCP Continued: Reviewed EMR and team rounds for pt?s medical status. PT evaluation on 05/23/24 states recommendation for home with home health. Discharge orders placed were placed. DCP attempted to speak with pt, pt was already prepped for dc and in wheelchair. Did not want to discuss home health options. Plan: Home with family to transport. CM Team will continue to follow for coordination of discharge plans. SALVATORE Norman
== END 2024-05-24 11:15 | disposition home or self-care (01) | DRG 193 ==
LOC: ED 17:57 → AC 18:12
PROVIDERS: Emergency Medicine; Hospitalist; Admitting Provider Internal Medicine; Emergency Provider Emergency Medicine; PCP Physician Assistant; Referring Provider Emergency Medicine; Visit Provider Internal Medicine
DX: J10.08 Influenza due to other identified influenza virus with other specified pneumonia (principal); J96.01 Acute respiratory failure with hypoxia; E87.1 Hypo-osmolality and hyponatremia; J15.9 Unspecified bacterial pneumonia; H91.90 Unspecified hearing loss, unspecified ear; I10 Essential (primary) hypertension; N40.0 Benign prostatic hyperplasia without lower urinary tract symptoms; E78.5 Hyperlipidemia, unspecified; Z87.891 Personal history of nicotine dependence
CPT/HCPCS: 0241U; 36415; 71045; 80053; 81001; 83605; 83735; 83880; 83935; 84300; 84443; 84484; 85025; 85610; 87040; 93005; 93306; 94762; 96365; 97162; 99284; J0696; J1650

== ENCOUNTER 2024-10-10 04:40 | Emergency (ER) | payer MEDICARE, SELFPAY ==
[2024-05-21 19:14] VITALS: BMI 24.4
--- NOTE | 2024-10-10 04:43 | ED.MALEGU ---
HPI - Male Genitourinary General Chief complaint: Urogenital-Male Stated complaint: Cannot urinate for x1 day Time Seen by Provider: 10/10/24 04:42 History of Present Illness HPI Narrative: 89-year-old male with a past medical history of prostate cancer status post TURP, hypertension, BPH, comes into the ED from home for evaluation of urinary retention, states the last time he urinated was around midnight. He states that he is having some mild pressure but no actual pain or discomfort otherwise. Patient states he is not having any other symptoms at this time. Related Data Home Medications ?Medication ?Instructions ?Recorded ?Confirmed amlodipine 10 mg tablet 10 mg PO BEDTIME 06/29/19 05/22/24 nebivolol 5 mg tablet 5 mg PO BEDTIME 06/29/19 05/22/24 aspirin 81 mg tablet,delayed 81 mg PO .COMPLEX 03/03/24 05/21/24 release multivitamin 1 tab PO DAILY 03/03/24 05/22/24 tamsulosin 0.4 mg capsule 0.4 mg PO BEDTIME 03/03/24 05/22/24 Previous Rx's ?Medication ?Instructions ?Recorded cefuroxime axetil 500 mg tablet 500 mg PO BID #8 tabs 05/24/24 Allergies Allergy/AdvReac Type Severity Reaction Status Date / Time Penicillins (PENICILLINS) Allergy Severe HEADACHE, Verified 10/10/24 04:51 CHEST PAIN Review of Systems Review of Systems Narrative: General: Denies fever, chills, weight loss HEENT: Denies headache, eye drainage, eye irritation, head trauma, sore throat, voice change Cardiovascular: Denies any chest pain, palpitations, tachycardia Respiratory: Denies any shortness of breath, cough, wheeze, stridor GI/: Positive urinary retention Denies any abdominal pain, nausea, vomiting, diarrhea, bright red blood per rectum, melanotic stools, urinary frequency, dysuria, hematuria MSK: Denies any joint pain, muscle pains, swelling Skin: Denies any rashes, lesions, discoloration Neuro: Denies any headache, lightheadedness, dizziness, fainting, weakness Psych: Denies SI/HI Patient History Medical History Cataract 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 Femur fracture, right Hearing loss HTN (hypertension) Hx of chronic arthritis Osteoarthritis of right knee Retinal detachment Surgical History H/O cataract removal with insertion of prosthetic lens History of hip replacement S/P colonoscopy with polypectomy S/P TURP (status post transurethral resection of prostate) Family History Sister Cancer Son Cancer Daughter Hyperlipidemia Social History marital status: number of children: 3 household members: family alcohol intake: never caffeine: Yes Type(s) of exercise: walking and regular exercise frequency: decline to answer Exam Narrative Exam Narrative: General: Cooperative, well-developed, not in acute distress HEENT: Normocephalic, atraumatic Neck: Active full range of motion, atraumatic Chest: Normal to inspection, negative crepitus, no overlying erythema ecchymosis Respiratory: Normal respiratory effort, not in acute respiratory distress, clear to auscultation bilaterally negative cough, wheeze, tachypnea, rhonchi, rales Cardiology: Regular rate rhythm negative gallop, murmur, rubs GI/: No tenderness to palpation, soft, non rigid, normal to inspection, exam deferred MSK: Full active range of motion in all 4 extremities, atraumatic, no tenderness to palpation of any bony prominences Skin: No rashes or lesions noted Neuro: Alert awake oriented x3, moves all 4 extremities spontaneously, cranial nerves intact, able to answer all questions appropriately follows commands appropriately Psych: Cooperative, negative suicidal or homicidal ideations Initial Vital Signs Initial Vital Signs: Vital Signs Temperature 98.2 F 10/10/24 04:51 Pulse Rate 92 H 10/10/24 04:51 Respiratory Rate 17 10/10/24 04:51 Blood Pressure 178/87 H 10/10/24 04:51 Pulse Oximetry 97 10/10/24 04:51 Oxygen Delivery Method Room Air 10/10/24 04:51 Course Orders Ordered: Discontinued Medications Lidocaine HCl (Lidocaine 2% (Glydo) 6 Ml Gel) 6 ml TOP NOW ONE Stop: 10/10/24 04:47 Vital Signs Vital signs: Vital Signs - 8 hr 10/10/24 04:51 Temperature 98.2 F Pulse Rate 92 H Respiratory Rate 17 Blood Pressure 178/87 H Pulse Oximetry 97 Oxygen Delivery Method Room Air MDM - Male Genitourinary Differential Diagnosis Differential diagnosis: Likely acute retention of urine MDM Narrative Medical decision making narrative: Patient 89-year-old male with a past medical history of BPH prostate cancer status post TURP, hypertension, comes into the ED from home for evaluation of urinary retention states that last time he urinated was around midnight, he is complaining of some mild suprapubic pressure but otherwise declines any other issues/complaints at this time. Patient has seen urology in the past for hematuria, states that it has spontaneously resolved therefore no interventions were done. Here bladder scan showing over 800 cc therefore Ruiz catheter will be placed. Successfully was able to place a 16 Chinese coude here in the emergency department with improvement of patient's symptoms, draining normal colored urine. Informed patient to follow up with Urology in outpatient setting verbalized understanding of this and agrees to being discharged home with outpatient follow up Review of records does show patient was seen on 05/09/[address] Coffman, did have cystoscopy with following results The 16Fr flexible cystoscope was inserted into his urethra and easily advanced into his bladder. He was noted to have bilateral coaptating lateral prostatic lobes with a small intravesical median lobe. Complete cystoscopy was then performed and no concerning masses or lesions were noted. Bilateral ureteral orifices were noted to be orthotopic in nature. He was noted to have grade 2 trabeculations throughout his bladder wall, no stones were present within his bladder. The cystoscope was then removed from his bladder/urethra. He tolerated the procedure well without any complications and was able to urinate following the procedure. Discharge Plan Departure Patient Disposition: Home Clinical Impression: Acute urinary retention Instructions: How to Care for Your Ruiz Catheter -- Male, DI for Urinary Retention in Men Activity Restrictions/Additional Instructions: Please follow up with your urologist Please read the discharge instructions sheet carefully and bring all papers to all doctor follow-up visits, as it may contain information that your doctor may want to see. Disease processes change and evolve, if your symptoms worsen or if you develop any new symptoms that are concerning to you please return for evaluation. Your evaluation today does not show any evidence of any life-threatening/serious illnesses requiring admission to the hospital or surgery. Please follow-up with your doctor for re-evaluation in approximately 1 day. Seek immediate medical attention for any worrisome symptoms. *If you do not have a primary care provider please contact the [facility] Resource line at [phone]. They will ask some questions about your medical history and help get you set up with a doctor in the community. Prescriptions: No Action tamsulosin 0.4 mg capsule 0.4 mg PO BEDTIME multivitamin Tablet 1 tab PO DAILY aspirin 81 mg tablet,delayed release (DR/EC) 81 mg PO .COMPLEX Rx Instructions: 81 mg orally Mon, Wed, Fri nebivolol 5 mg tablet 5 mg PO BEDTIME amlodipine 10 mg tablet 10 mg PO BEDTIME cefuroxime axetil 500 mg tablet 500 mg PO BID Qty: 8 0RF Referrals: Alexei Coffman DO [Physician, Urology] Referral Note: Acute urinary retention Huong Thrasher PA-C [Primary Care Provider, Medical] Stand Alone Forms: Patient Portal/API
[2024-10-10 04:51] VITALS: BP 178/87; PULSE 92; RESP 17; TEMP 36.8; O2SAT 97; BMI 29.2
--- NOTE | 2024-10-11 19:31 | PC.NURSE ---
Family came in this evening to advise they had accidentally punctured a hole in pts martinez bag. They have a urology appointment scheduled for 10/17/24 but need a new urine bag until then. Gave a new urine bag and stat lock. Family stated they do not need instructions that they have changed previously.
== END 2024-10-10 05:28 | disposition home or self-care (01) ==
PROVIDERS: Emergency Provider Student in an Organized Health Care Education/Training Program; PCP Physician Assistant
DX: R33.8 Other retention of urine (principal); Z85.46 Personal history of malignant neoplasm of prostate
CPT/HCPCS: 99283

== ENCOUNTER 2024-10-14 08:17 | Emergency (ER) | payer MEDICARE, SELFPAY ==
[2024-10-11 08:33] VITALS: BMI 24.4
[2024-10-14] VITALS (8 sets, daily range): BP systolic 147–160; BP diastolic 65–75; PULSE 56–61; RESP 16–20; TEMP 36.5; O2SAT 98–99; BMI 29.4
--- NOTE | 2024-10-14 09:39 | ED_ITS ---
HPI - Male Genitourinary General Chief complaint: Urogenital-Male Stated complaint: blood in urine, has a catheter Time Seen by Provider: 10/14/24 09:06 Source: patient Mode of arrival: Wheelchair History of Present Illness HPI Narrative: 89-year-old male with a past medical history of prostate cancer status post TURP, hypertension, BPH, comes into the ED from home for evaluation of some blood seen in urine, patient had a catheter placed here in the ED 4 days ago for urinary retention. Patient still has a catheter in place. He denies any other symptoms except 2 very brief episodes of sharp left lower abdominal pain with urination that are now gone. No other symptoms. Related Data Home Medications ?Medication ?Instructions ?Recorded ?Confirmed amlodipine 10 mg tablet 10 mg PO BEDTIME 06/29/19 nebivolol 5 mg tablet 5 mg PO BEDTIME 06/29/1908/11 aspirin 81 mg tablet,delayed 81 mg PO .COMPLEX 4 05/21/24 release multivitamin 1 tab PO DAILY 03/03/2408/11 tamsulosin 0.4 mg capsule 0.4 mg PO BEDTIME 03/03/24 0 05/22/24 Previous Rx's ?Medication ?Instructions ?Recorded cefuroxime axetil 500 mg tablet 500 mg PO BID #8 tabs 05/24/24 Allergies Allergy/AdvReac Type Severity Reaction Status Date / Time Penicillins (PENICILLINS) Allergy Severe HEADACHE, Verified 10/14/24 08:37 CHEST PAIN Review of Systems Review of Systems ROS Unobtainable: All systems reviewed & are unremarkable except as noted in HPI and below Patient History Medical History Cataract 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 Femur fracture, right Hearing loss HTN (hypertension) Hx of chronic arthritis Osteoarthritis of right knee Retinal detachment Surgical History H/O cataract removal with insertion of prosthetic lens History of hip replacement S/P colonoscopy with polypectomy S/P TURP (status post transurethral resection of prostate) Family History Sister Cancer Son Cancer Daughter Hyperlipidemia Social History marital status: number of children: 3 household members: family alcohol intake: never caffeine: Yes Type(s) of exercise: walking and regular exercise frequency: decline to answer tobacco type: cigars Exam Narrative Exam Narrative: General: Patient appears to be in no acute distress, acting appropriately Head: normocephalic, atraumatic, HEENT: Pupils equal round reactive, eyes tracking well, neck supple, no JVD Heart: regular rate and rhythm, no murmurs, rubs, or gallops heard Lungs: clear to auscultation, no adventitious sounds Abdomen: soft , nontender, nondistended, positive bowel sounds Neurological: no focal neurological signs, moving all extremities well, alert and oriented x3, Psych: good judgment ,good insight, mood is normal. gu exam:catheter in place, no other abnormality Initial Vital Signs Initial Vital Signs: Vital Signs Temperature 97.7 F 10/14/24 08:36 Pulse Rate 61 10/14/24 08:36 Respiratory Rate 16 10/14/24 08:36 Blood Pressure 147/65 H 10/14/24 08:36 Pulse Oximetry 98 10/14/24 08:36 Oxygen Delivery Method Room Air 10/14/24 08:36 Course Course Course Narrative: An attempt was made to irrigate the patient's catheter which did assist in relieving some of the blood. The hematuria still continued to persist and so urology consult was placed. Orders Ordered: ED Orders 10/14/24 09:50 Urinalysis and Microscopic Stat Reevaluation(s) Reevaluation #1: At this time there is much less hematuria. Consultations Consultation #1: Dr. garcia urologist graciously came down to the ED for an evaluation. He advised that the patient can be discharged and just follow up as planned in a few days. Vital Signs Vital signs: Vital Signs - 8 hr 10/14/24 08:36 10/14/24 12:02 Temperature 97.7 F Pulse Rate 61 57 L Respiratory Rate 16 18 Blood Pressure 147/65 H 160/75 H Pulse Oximetry 98 Oxygen Delivery Method Room Air MDM - Male Genitourinary Differential Diagnosis Differential diagnosis: Likely urinary tract infection, urethritis and acute retention of urine Lab Data Labs: Lab Results 10/14/24 10/14/24 10/14/24 Range/Units 09:50 09:50 09:50 Urine Color Cancelled Red Urine Appearance Cancelled Turbid Urine pH Cancelled Ur Specific [place] Urine Protein Urine Glucose (UA) Urine Ketones Urine Occult Blood Urine Nitrate Urine Bilirubin Urine Urobilinogen Ur Leukocyte Esterase Urine RBC (0-5/HPF) Urine WBC (0-5/HPF) Ur Squamous Epith Cells (0-5/HPF) Urine Bacteria (None) Ur Culture Indicated? Vol Urine Centrifuged 10/14/24 10/14/24 10/14/24 Range/Units 09:50 09:50 09:50 Urine Color Urine Appearance Urine pH TNP Ur Specific [place] Cancelled TNP Urine Protein Cancelled TNP Urine Glucose (UA) Cancelled Urine Ketones Urine Occult Blood Urine Nitrate Urine Bilirubin Urine Urobilinogen Ur Leukocyte Esterase Urine RBC (0-5/HPF) Urine WBC (0-5/HPF) Ur Squamous Epith Cells (0-5/HPF) Urine Bacteria (None) Ur Culture Indicated? Vol Urine Centrifuged 10/14/24 10/14/24 10/14/24 Range/Units 09:50 09:50 09:50 Urine Color Urine Appearance Urine pH Ur Specific [place] Urine Protein Urine Glucose (UA) TNP Urine Ketones Cancelled TNP Urine Occult Blood Cancelled TNP Urine Nitrate Cancelled Urine Bilirubin Urine Urobilinogen Ur Leukocyte Esterase Urine RBC (0-5/HPF) Urine WBC (0-5/HPF) Ur Squamous Epith Cells (0-5/HPF) Urine Bacteria (None) Ur Culture Indicated? Vol Urine Centrifuged 10/14/24 10/14/24 10/14/24 Range/Units 09:50 09:50 09:50 Urine Color Urine Appearance Urine pH Ur Specific [place] Urine Protein Urine Glucose (UA) Urine Ketones Urine Occult Blood Urine Nitrate TNP Urine Bilirubin Cancelled TNP Urine Urobilinogen Cancelled TNP Ur Leukocyte Esterase Cancelled Urine RBC (0-5/HPF) Urine WBC (0-5/HPF) Ur Squamous Epith Cells (0-5/HPF) Urine Bacteria (None) Ur Culture Indicated? Vol Urine Centrifuged 10/14/24 Range/Units 09:50 Urine Color Urine Appearance Urine pH Ur Specific [place] Urine Protein Urine Glucose (UA) Urine Ketones Urine Occult Blood Urine Nitrate Urine Bilirubin Urine Urobilinogen Ur Leukocyte Esterase TNP Urine RBC >100/hpf H (0-5/HPF) Urine WBC 1-5/hpf (0-5/HPF) Ur Squamous Epith Cells 1-5 /hpf (0-5/HPF) Urine Bacteria Occasional (0-1) (None) Ur Culture Indicated? Cult not indicated Vol Urine Centrifuged 10ml (spun) MDM Narrative Medical decision making narrative: 89-year-old male who recently was here for an acute urinary retention came back for hematuria. Ruiz catheter was replaced and irrigated extensively which did assist. No clots were seen. Urology was consulted and saw the patient bedside. Advised the patient can be discharged and follow up as planned. Discharge Plan Departure Patient Disposition: Home Clinical Impression: Acute urinary retention Hematuria Qualifiers: Hematuria type: unspecified type Qualified Code(s): R31.9 - Hematuria, unspecified Instructions: DI for Hematuria, DI for Urinary Retention in Men Activity Restrictions/Additional Instructions: Follow up with urologist as planned. Can come back to clinic or ED who continual blood in urine or seen more blood clots. Prescriptions: No Action tamsulosin 0.4 mg capsule 0.4 mg PO BEDTIME multivitamin Tablet 1 tab PO DAILY aspirin 81 mg tablet,delayed release (DR/EC) 81 mg PO .COMPLEX Rx Instructions: 81 mg orally Mon, Wed, Fri nebivolol 5 mg tablet 5 mg PO BEDTIME amlodipine 10 mg tablet 10 mg PO BEDTIME cefuroxime axetil 500 mg tablet 500 mg PO BID Qty: 8 0RF Referrals: Huong Thrasher PA-C [Primary Care Provider, Medical] Stand Alone Forms: Patient Portal/API
[2024-10-14 10:13] LABS: Appearance Urine UA Turbid; Color Urine UA Red
[2024-10-14 10:14] LABS: Culture Indicated Urine Cult Not Indicated
--- NOTE | 2024-10-14 12:44 | PC.NURSE ---
Urology assessed pt's martinez, stated will return for reassessment in 20-30 minutes. Pt resting on stretcher, RA, NAd, breathing even/equal/unlabored at this time. Call light within reach, family at bedside, no other needs at this time
== END 2024-10-14 13:58 | disposition home or self-care (01) ==
PROVIDERS: Emergency Provider Family Medicine; PCP Physician Assistant
DX: R33.9 Retention of urine, unspecified (principal); R31.9 Hematuria, unspecified
CPT/HCPCS: 51701; 81001; 99282

== ENCOUNTER → 2024-10-17 15:44 | Outpatient (CLI) | payer MEDICARE, SELFPAY ==
[2024-10-11 08:33] VITALS: BMI 24.4
[2024-10-17 16:11] LABS: Appearance Urine UA CLOUDY; Bilirubin Urine UA NEGATIVE (NEGATIVE); Color Urine UA RED; Glucose Urine UA NEGATIVE (Negative); Ketones Urine UA NEGATIVE (NEGATIVE); Leukocyte Esterase Urine UA 1+ (NEGATIVE); Nitrite Urine UA NEGATIVE (Negative); Occult Blood Urine UA 3+ (Negative); Protein Urine UA 2+ (Negative); Specific Gravity Urine UA 1.010 (1.000-1.035); Urobilinogen Urine UA 1.0 E.U./dL (0.2); pH Urine UA 7.0 (4.5-8.0)
[2024-10-17 16:32] LABS: Culture Indicated Urine Specimen Cultured
== END ==
PROVIDERS: PCP Physician Assistant; Visit Provider Urology
DX: N40.1 Benign prostatic hyperplasia with lower urinary tract symptoms (principal); R33.8 Other retention of urine; R31.9 Hematuria, unspecified; R33.9 Retention of urine, unspecified
CPT/HCPCS: 51702; 51798; 81001; 87086; 99213

== ENCOUNTER 2024-10-23 16:10 | Day surgery (SDC) | payer MEDICARE, SELFPAY ==
[2024-10-11 08:33] VITALS: BMI 24.4
[2024-10-23] VITALS (7 sets, daily range): BP systolic 127–173; BP diastolic 67–77; PULSE 65–74; RESP 10–20; TEMP 36.2–36.8; O2SAT 96–98; BMI 31.0
[2024-10-23] MEDS: LACTATED RINGERS 1,000 ML 21 ML IV (17:00)
[2024-10-23] MEDS: levoFLOXacin 500 MG/100 ML PIGGYBACK 100 MG IV (17:05)
--- NOTE | 2024-10-23 17:19 | SUR.OPER ---
Lithotomy on padded OR bed, head on pillow, arms secured on padded arm boards at <90 degrees abduction. strap on waist. Legs secured in padded yellow fins stirrups.
--- NOTE | 2024-10-23 18:14 | P.OP_ITS ---
Operative Date/Time/Diagnoses Date of procedure: 10/23/24 Time of procedure: 17:00 Pre-op diagnosis: Urinary retention, gross hematuria Post-op diagnosis: same Procedure & Clinicians Procedure: Cystoscopy Clot evacuation Bladder fulguration Same procedure(s) as scheduled: Yes Indications: 89 y/o M noted to have symptoms consistent w/ BPH and LUTS that were previously managed w/ Tamsulosin 0.4mg daily. Unfortunately, he developed AUR in late September 2024 in the setting of constipation. He failed his voiding trial last week and although his constipation resolved, was unable to urinate today with dark red urine appreciated with placement of his martinez catheter. Should he continue to fail his voiding trials, discussed treatment options to include a chronic martinez catheter vs increasing the dosage of his Tamsulosin to 0.8mg daily. Discussed mechanism of action and expected side effects to include orthostatic hypotension, nasal congestion and retrograde ejaculation. Also discussed the possible addition of Finasteride 5mg daily (discussed possible side effects to include decreased libido, worsening erectile dysfunction, loss of ejaculate volume as well as painful breast development or nipple tenderness), or a lower urinary tract evaluation prior to a bladder outlet procedure. Regarding his gross hematuria, discussed treatment options to include leaving the martinez catheter in place (not recommended), admission to the hospital for CBI (not recommended given that I am unable to irrigate his catheter) or a cystoscopy with clot evacuation, bladder fulguration and possible TURBT. Discussed risks of the procedure to include but not limited to pain, bleeding, infection, injury to urethra/prostate/bladder/ureteral orifice, need for a ureteral stent, prolonged catheterization, and possible open repair of ureteral and/or bladder injury. He indicated understanding and signed inform consent today in clinic. Surgeon: Alexei Coffman Click Yes if Unassisted: Yes Anesthesia Type: General Operative Notes Findings: Very large blood clot within his bladder, diffuse bleeding from lateral prostatic lobes Closure Type: not applicable Specimen(s): none sent Applied: catheter Estimated Blood Loss (mL): 100 Blood products transfused: none Procedure in detail: Patient was identified in the preoperative holding area and consent confirmed. He was then brought to the operating room where general anesthesia was induced. He was then placed in the low lithotomy position. He was then prepped and draped in the usual sterile fashion. A surgical timeout was conducted and all were in agreement. His urethral meatus was serially dilated from 22Fr to 30Fr using the [place] sounds. Access to the bladder was obtained via the 26Fr resectoscope with visual obturator. A very large blood clot was immediately noted within his bladder. This was manually evacuated using the Tumi syringe. Bilateral ureteral orifices were then visualized and noted to be orthotopic in nature. Complete cystoscopy was performed and no concerning masses or lesions were noted. He was noted to have diffuse bleeding from his lateral prostatic lobes. The working element with Gyrus loop was then assembled and passed through the resectoscope and into the bladder. Hemostasis was evaluated and noted to be excellent at case end. A 24Fr 3-way hematuria catheter was advanced into his bladder and 45 cc of sterile water was utilized for balloon insufflation. Anesthesia was reversed, he was extubated in the OR and transferred to the PACU in stable condition for recovery. Complications: none Post-operative Condition: stable Disposition: PACU Plan for aftercare: Discharge home from PACU. Will return to Urology clinic on 30 Oct 2024 for a repeat voiding trial.
== END 2024-10-23 19:00 | disposition home or self-care (01) ==
PROVIDERS: PCP Physician Assistant; Referring Provider Urology; Visit Provider Urology
PROC: (CPT 52001; principal; 2024-10-23 17:00)
DX: R31.0 Gross hematuria (principal); R33.9 Retention of urine, unspecified; N32.89 Other specified disorders of bladder
CPT/HCPCS: 52001; J0330; J1100; J1956; J2405; J2704; J3010

== ENCOUNTER 2024-11-20 03:57 | Inpatient (IN) | payer MEDICARE, SELFPAY ==
[2024-10-31 08:12] VITALS: BMI 24.4
[2024-11-20] VITALS (19 sets, daily range): BP systolic 113–150; BP diastolic 57–95; PULSE 50–72; RESP 12–20; TEMP 35.7–36.8; O2SAT 92–98; BMI 29.4
--- NOTE | 2024-11-20 04:02 | ED.GENADULT ---
HPI - General Adult General Chief complaint: Urogenital-Male Stated complaint: Catheter Issues, Urinary Symptoms Time Seen by Provider: 11/20/24 04:02 Source: patient, RN notes reviewed and old records reviewed Mode of arrival: Ambulatory Limitations: no limitations History of Present Illness HPI narrative: 89-year-old male was seen here on 11/17/2024 after having had a voiding trial who has had his Riuz catheter removed on 11/13/2024 developed urinary retention and hematuria and presented to the department on 11/17 had Ruiz catheter placed, Dr. Coffman his urologist was not involved and he is follow up for this upcoming Monday. Patient was started on Levaquin for potential UTI. Family states he has been taking this regularly. They stay overnight he has not had as much urine output so they thought there maybe blockage. Patient did not note a little bit of abdominal discomfort. No fevers. No nausea or vomiting. No chest pain or shortness of breath. Patient has been mildly constipated. They noted urine has been fairly clear until yesterday and then started have pinkish discoloration then became very dark. Patient has follow up with Dr. Coffman on MondayNovember 25. He is on aspirin overy other day (3 days a week). Related Data Home Medications ?Medication ?Instructions ?Recorded ?Confirmed amlodipine 10 mg tablet 10 mg PO BEDTIME 06/29/19 11/13/24 nebivolol 5 mg tablet 5 mg PO BEDTIME 06/29/19 11/13/24 aspirin 81 mg tablet,delayed 81 mg PO .COMPLEX 03/03/24 11/13/24 release multivitamin 1 tab PO DAILY 03/03/24 11/13/24 Previous Rx's ?Medication ?Instructions ?Recorded tamsulosin 0.4 mg capsule 0.8 mg (2 x 0.4 mg) PO DAILY #180 10/31/24 caps levofloxacin 750 mg tablet 750 mg PO DAILY 7 days #7 tabs 11/17/24 Allergies Allergy/AdvReac Type Severity Reaction Status Date / Time Penicillins (PENICILLINS) Allergy Severe HEADACHE, Verified 11/20/24 04:11 CHEST PAIN Patient History Medical History Hx of chronic arthritis Cataract Femur fracture, right Hearing loss 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 Retinal detachment HTN (hypertension) Surgical History History of hip replacement S/P colonoscopy with polypectomy S/P TURP (status post transurethral resection of prostate) H/O cataract removal with insertion of prosthetic lens Family History Sister Cancer Son Cancer Daughter Hyperlipidemia Social History marital status: number of children: 3 household members: family Smoking Status: Current some day smoker alcohol intake: never caffeine: Yes Type(s) of exercise: walking and regular exercise frequency: decline to answer tobacco type: cigars Exam Narrative Exam Narrative: GENERAL: Alert elderly male in acute distress HEENT: Head normocephalic, atraumatic, EOMI, pupils reactive, face symmetric, moist mucous membranes NECK: Supple, full range of motion CARDIOVASCULAR: Regular rate and rhythm without murmurs, rubs or gallops. RESPIRATORY: Breath sounds equal bilaterally, no wheezes rales or rhonchi. ABDOMEN: Soft, nontender. Normoactive bowel sounds all 4 quadrants. No guarding or rebound, rigidity, no mass, patient has midline hernia. : No CVA tenderness, Male: normal external examination, non circumcised, patient has Ruiz catheter in place with very dark red blood in small amounts draining and I some blood around the urethral opening, no penile discharge or lesions, testicles non-tender, cremasteric reflex intact. EXTREMITIES: Normal range of motion, no clubbing or edema. Neurovascularly intact NEUROLOGICAL: Cranial nerves II through XII grossly intact. Moving all extremities SKIN: Warm, dry, no petechiae, no rashes or lesions. Initial Vital Signs Initial Vital Signs: Vital Signs Temperature 97.8 F 11/20/24 04:11 Pulse Rate 65 11/20/24 04:11 Respiratory Rate 16 11/20/24 04:11 Blood Pressure 145/67 H 11/20/24 04:11 Pulse Oximetry 98 11/20/24 04:11 Oxygen Delivery Method Room Air 11/20/24 04:11 Course Orders Ordered: ED Orders 11/20/24 04:11 BMP [Basic Metabolic Panel] Stat CBC Auto Diff [Complete Blood Count AUTO DIFF] Stat Discontinued Medications Lidocaine HCl (Lidocaine 2% (Glydo) 6 Ml Gel) 6 ml TOP NOW ONE Stop: 11/20/24 04:26 Last Admin: 11/20/24 04:29 Dose: 6 ml Documented By: GREGOR Vital Signs Vital signs: Vital Signs - 8 hr 11/20/24 04:11 Temperature 97.8 F Pulse Rate 65 Respiratory Rate 16 Blood Pressure 145/67 H Pulse Oximetry 98 Oxygen Delivery Method Room Air Medical Decision Making Lab Data 11/20/24 04:11 11/20/24 04:11 Labs: Lab Results 11/20/24 Range/Units 04:11 WBC 7.7 (4.5-11.0) X10^3/uL RBC 3.52 L (4.5-5.9) X10^6/uL Hgb 10.5 L (13.5-17.5) g/dL Hct 30.2 L (41-53) % MCV 85.7 (80-100) fL MCH 29.8 (26-34) PG MCHC 34.8 (30-36) % RDW 12.9 (11.6-14.8) % Plt Count 296 (150-400) X10^3/uL Neut % (Auto) 49.9 L (50-75) % Lymph % (Auto) 33.4 (25-40) % Dickenson % (Auto) 10.0 (3-14) % Eos % (Auto) 4.7 H (2-4) % Baso % (Auto) 2.0 (0-2) % Neut # (Auto) 3800 (6027-3573) /uL Lymph # (Auto) 2600 (0752-5598) /uL Dickenson # (Auto) 800 (0-900) /uL Eos # (Auto) 400 (0-450) /uL Baso # (Auto) 200 H (0-100) /uL Sodium 127 L (137-145) mmol/L Potassium 3.6 (3.4-5.1) mmol/L Chloride 94 L (98-107) mmol/L Carbon Dioxide 24 (22-32) mmol/L BUN 8 L (9-20) mg/dL Creatinine 0.73 (0.66-1.25) mg/dL Estimated GFR > 60 (>60) mL/min BUN/Creatinine Ratio 11.0 (6-22) Glucose 99 (70-99) mg/dL Calcium 9.2 (8.4-10.2) mg/dL MDM Narrative Medical decision making narrative: White count of 7.7 hemoglobin is 10.5 was 12.3 in May of 2024 platelets are 296. Sodium is 127 consistent with priors, creatinine 0.73. Was 0.55 in the past. Urine culture from 11/17/2024 shows Gram-negative bacilli sensitivities are pending. Bladder scan showed 700+ mL, Ruiz catheter was replaced with 3 way had 600mL out. Continous irrigation, urine is draining and pink tinged after completing 3L bag. Still draining, no clots. Updated family on findings. Patient is tolerating well. Spoke with Dr. Coffman, urology [id number]. He will see patient here in the department. Dr. Coffman 0745 in the department irrigating patient's bladder a large amount of clot plans to take the OR tonight. Asks for patient observation. Spoke with Dr. Perez @ 1450 accepts for observation. Discharge Plan Departure Patient Disposition: Admitted as Observation Clinical Impression: Hematuria, Malfunction of Ruiz catheter Admit Date/Time: 11/20/24 07:26 Admit Provider: Jesus Perez
[2024-11-20 04:17] LABS: Add Manual Diff / Slide Review NO; Hematocrit 30.2 % (41-53); Hemoglobin 10.5 g/dL (13.5-17.5); Lymphocytes Absolute Auto 2600 /uL (1100-4500); Mean Corpuscular HGB Conc 34.8 % (30-36); Mean Corpuscular Hemoglobin 29.8 PG (26-34); Mean Corpuscular Volume 85.7 fL (80-100); Platelet Count 296 X10^3/uL (150-400)
[2024-11-20 04:29] LABS: Blood Urea Nitrogen 8 mg/dL (9-20); Calcium 9.2 mg/dL (8.4-10.2); Carbon Dioxide 24 mmol/L (22-32); Chloride 94 mmol/L (98-107); Estimated Glomerular Filt Rate > 60 mL/min (>60); Glucose 99 mg/dL (70-99); HEMOLYSIS < 15 (0-50); Potassium 3.6 mmol/L (3.4-5.1); Sodium 127 mmol/L (137-145)
[2024-11-20] MEDS: LIDOCAINE 2% (GLYDO) 6 ML GEL TOP (04:29)
--- NOTE | 2024-11-20 07:49 | PM.CN.IH.1 ---
History of Present Illness Consult details Chief complaint: Catheter Issues, Blood In Urine Reason for consult: Gross hematuria Narrative: 89 y/o M returns to ER for evaluation of gross hematuria and a clogged martinez catheter. Briefly, he is currently taking Tamsulosin 0.8mg daily. He admits to a prior laser surgery on his prostate more than 20 years ago. Unfortunately, he developed acute urinary retention on 10 October 2024 and had a martinez catheter inserted with immediate drainage of over 800 cc's of clear yellow urine. He developed red urine with clots and was re-evaluated in the ER on 15 October 2024. He was ultimately discharged home with his catheter in place and failed a repeat voiding trial on 17 October 2024. His catheter was removed on 23 Oct 2024 and he was noted to have clot retention, therefore, he was brought urgently to the operating room for a cystoscopy and clot evacuation. A martinez catheter was replaced and he was discharged home. Although he passed his voiding trial on Oct, he was unable to urinate the following morning and it was replaced. He passed his last voiding trial on 13 Nov 2024, however, he developed acute urinary retention again on 17 Nov 2024 and had a martinez catheter placed in the ER. His UCx was ultimately positive, however, he did not start antibiotics until 19 Nov 2024 secondary to the holiday weekend. His catheter became clogged overnight and he was brought into ER for further evaluation. His catheter was removed and a new one was replaced. Urology was consulted regarding gross hematuria management. Regarding his gross hematuria, he had several episodes of red urine w/ passage of blood clots in early Mar. He was evaluated in the ER for this issue and was noted to have a WBC of 7.4, sCr of 0.77 and a UA that appeared slightly concerning for infection (subsequent UCx was negative). He admits to a < 10 pack year smoking history and otherwise denies a FH of kidney or bladder cancer. His CT IVP in Apr was otherwise unremarkable. His cystoscopy in Apr was notable for coaptating lateral prostatic lobes w/ a small intravesical median lobe, otherwise unremarkable. Of note, he does take a baby ASA 3 days per week. Meds Home Medications and Allergies Home Medications ?Medication ?Instructions ?Recorded ?Confirmed ?Type amlodipine 10 mg tablet 10 mg PO BEDTIME 06/29/19 11/13/24 History nebivolol 5 mg tablet 5 mg PO BEDTIME 06/29/19 11/13/24 History aspirin 81 mg tablet,delayed 81 mg PO .COMPLEX 03/03/24 11/13/24 History release multivitamin 1 tab PO DAILY 03/03/24 11/13/24 History tamsulosin 0.4 mg capsule 0.8 mg (2 x 0.4 mg) PO DAILY #180 10/31/24 11/13/24 Rx caps levofloxacin 750 mg tablet 750 mg PO DAILY 7 days #7 tabs 11/17/24 Rx Allergies Allergy/AdvReac Type Severity Reaction Status Date / Time Penicillins (PENICILLINS) Allergy Severe HEADACHE, Verified 11/20/24 04:11 CHEST PAIN Review of Systems Review of Systems Narrative: CONSTITUTIONAL: Denies weight loss, fevers, chills. HEENT: Denies change in vision, hearing. RESP: Denies SOB, cough. CV: Denies palpations, CP. GI: Denies abdominal pain, nausea, vomiting, diarrhea. : Denies dysuria, hematuria, inability to void. MSK: Denies myalgia, joint pain. SKIN: Denies rash, pruritus. NEURO: Denies headache, syncope. PSYCH: Denies recent change in mood, anxiety, depression. Exam Vital Signs (past 8 hours): - 11/20/24 04:11 11/20/24 07:00 11/20/24 07:30 Temperature 97.8 F Pulse Rate 65 54 L Respiratory Rate 16 Blood Pressure 145/67 H 150/67 H Pulse Oximetry 98 97 Oxygen Delivery Method Room Air 11/20/24 07:30 Temperature Pulse Rate 56 L Respiratory Rate Blood Pressure Pulse Oximetry 96 Oxygen Delivery Method Oxygen Delivery Method Room Air Narrative Exam Narrative: GEN: Alert and oriented X3. No acute distress. Well-nourished. EYES: PERRLA, EOMI. HENT: Moist mucus membranes, no scleral icterus, normal neck ROM. RESP: Unlabored breathing, equal rise and fall of chest bilaterally, no cyanosis appreciated. CV: No peripheral edema, unremarkable heart rate. ABD: Soft, non-tender, non-distended, no palpable masses. : Unremarkable penis, no urethral discharge, no meatal stenosis. Previously placed martinez catheter was removed. Under sterile technique, a 24Fr Yoselin 3-way catheter was placed. More than 200 cc's of clot was manually evacuated from his bladder. EXT: No edema, clubbing or cyanosis. SKIN: No rashes or lesions. NEURO: No focal neurologic deficits, CN II-XII grossly intact. PSYCH: Cooperative, appropriate mood and affect. Objective Labs 11/20/24 04:11 11/20/24 04:11 Labs: Laboratory Results - last 24 hr 11/20/24 04:11 WBC 7.7 RBC 3.52 L Hgb 10.5 L Hct 30.2 L MCV 85.7 MCH 29.8 MCHC 34.8 RDW 12.9 Plt Count 296 Neut % (Auto) 49.9 L Lymph % (Auto) 33.4 [place] % (Auto) 10.0 Eos % (Auto) 4.7 H Baso % (Auto) 2.0 Neut # (Auto) 3800 Lymph # (Auto) 2600 [place] # (Auto) 800 Eos # (Auto) 400 Baso # (Auto) 200 H Sodium 127 L Potassium 3.6 Chloride 94 L Carbon Dioxide 24 BUN 8 L Creatinine 0.73 Estimated GFR > 60 BUN/Creatinine Ratio 11.0 Glucose 99 Calcium 9.2 PFSH Medical History Hx of chronic arthritis Cataract Femur fracture, right Hearing loss 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 Retinal detachment HTN (hypertension) Surgical History History of hip replacement S/P colonoscopy with polypectomy S/P TURP (status post transurethral resection of prostate) H/O cataract removal with insertion of prosthetic lens Family History Sister Cancer Son Cancer Daughter Hyperlipidemia Social History marital status: number of children: 3 household members: family Tobacco & Substance Use Smoking Status: Current some day smoker alcohol intake: never Diet and Exercise caffeine: Yes Type(s) of exercise: walking and regular exercise frequency: decline to answer Assessment & Plan Assessment and plan (1) BPH loc w urin obs/LUTS: Status: Acute Plan: 89 y/o M noted to have symptoms consistent w/ BPH and LUTS that are currently managed w/ Tamsulosin 0.8mg daily. Unfortunately, he developed AUR in late September 2024 in the setting of constipation. He failed his voiding trial last week and had a new martinez catheter replaced. Unfortunately, this become clogged secondary to blood clots and he continues to have gross hematuria. Should he continue to fail his voiding trials, discussed treatment options to include a chronic martinez catheter, a suprapubic tube placement or a bladder outlet procedure. Also discussed the possible addition of Finasteride 5mg daily (discussed possible side effects to include decreased libido, worsening erectile dysfunction, loss of ejaculate volume as well as painful breast development or nipple tenderness). Regarding his gross hematuria, discussed treatment options to include leaving the martinez catheter in place (not recommended), admission to the hospital for CBI (recommended) given that I am unable to irrigate his catheter at the moment with ultimate plans for a cystoscopy with clot evacuation, bladder fulguration and possible TURBT. Discussed risks of the procedure to include but not limited to pain, bleeding, infection, injury to urethra/prostate/bladder/ureteral orifice, need for a ureteral stent, prolonged catheterization, and possible open repair of ureteral and/or bladder injury. He indicated understanding. 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 (3) Hematuria: Qualifiers: Hematuria type: gross Qualified Code(s): R31.0 - Gross hematuria Status: Acute Plan: Please see plan above under BPH. Time-Based Coding :: [TOTAL MINUTES] spent with patient and on the chart (including review of chart, obtaining history, exam, reviewing outside data, placing orders, documenting exam and treatment plan, and counseling patient) on [DATE]. PROFEE Charge Codes Inpatient or Observation consultation: [id number]
--- NOTE | 2024-11-20 07:51 | PC.NURSE ---
Patient's continuous bladder irrigation completed before my arrival. I drained the Catheter bag and emptied multiple urinals of urine on the counter for a total of 3200ml of grade 4 urine with small clots. Per Eladia Gayle in report, patient had his catheter replaced by Dr. Coffman and he has a 24g [address]. It is draining and patient's urine is at a grade 3 for hematuria. Family reports patient will be admitted and that Dr. Coffman will do surgery today. Patient resting quietly, warm blankets given, call light in reach.
[2024-11-20] MEDS: levoFLOXacin 500 MG/100 ML PIGGYBACK 100 MG IV ×2 (08:10→20:45)
--- NOTE | 2024-11-20 12:52 | EKG_ITS ---
[facility] [id number] [place] [address] Test Date: 2024-11-20 Pat Name: Renan Pérez Department: Room: 210 Gender: Male Stable Cleaner: : 1935 Requested By: Order Number: [id number] Reading MD: Saeed Chirnios Measurements Intervals Hortense Rate: 68 P: [place]: QRS: -15 QRSD: 102 T: 28 QT: 432 QTc: 459 Interpretive Statements Accelerated Junctional rhythm Electronically Signed On 11-25-2024 16:14:58 PDT by Saeed Chirinos
[2024-11-20 14:17] LABS: Troponin I < 0.012 ng/mL (0.01-0.034)
[2024-11-20] MEDS: SODIUM CHLORIDE 0.9% 1,000 ML 100 ML IV (15:00)
--- NOTE | 2024-11-20 15:56 | PM.HP.1 ---
History of Present Illness History of Present Illness Date Patient Seen: 11/20/24 Chief complaint: Catheter Issues, Blood In Urine Narrative: Chief complaint: Gross hematuria History of present illness: 11/20: 89-year-old male with longstanding history of urinary retention and BPH developed red urine with clots and was re-evaluated in the ER on 15 October 2024. He was ultimately discharged home with his catheter in place and failed a repeat voiding trial on 17 October 2024. His catheter was removed on 23 Oct 2024 and he was noted to have clot retention, therefore, he was brought urgently to the operating room for a cystoscopy and clot evacuation done by Dr. Coffman. A martinez catheter was replaced and he was discharged home. Although he passed his voiding trial on Oct, he was unable to urinate the following morning and it was replaced. He just recently saw Dr. Coffman in the office and had his Martinez taken out on 11/13/24. This am he urinated once but did see blood clots in the urine. Now he is unable to urinate and complains of bladder distention pain in his back. Postvoid residual urine volume from the bladder scan shows over 900 cc of urine. In the emergency department hemogram was unremarkable, sodium 127 potassium 3.6 BUN 8 creatinine 0.73 troponin 0.012 EKG sinus rhythm no acute ST segments or T-wave changes Previous echocardiogram in May showed ejection fraction of 50% and right ventricular systolic pressure of 39 mm otherwise unremarkable Patient episode of chest pain this morning upon arrival floor lasted for about 90 seconds it was on the left precordium is not associated with shortness for breath diaphoresis dizziness nausea did not radiate EKG was nonacute and troponin was normal Review of systems: No fever or chills Shortness for breath No nausea vomiting diarrhea The paresthesia paresis Physical exam: Elderly male in no acute distress HEENT unremarkable Heart rate and rhythm regular no murmurs Lungs clear Abdomen nontender bowel sounds present Extremities no edema Neuro nonfocal Recurrent gross hematuria bladder outlet obstruction Cystoscopy with Urology Atypical chest pain: Heart score is 3 (low suspicion) DVT prophylaxis: SCDs of Code status: Full code Disposition: Placed in observation we will be going to procedure late this evening if feeling stable may discharge after procedure 55 minutes were involved in the management of this patient including [id number] evaluation physical examination review of objective laboratory and EKG findings as well as imaging [facility] Medical History Hx of chronic arthritis Cataract Femur fracture, right Hearing loss 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 Retinal detachment HTN (hypertension) Surgical History History of hip replacement S/P colonoscopy with polypectomy S/P TURP (status post transurethral resection of prostate) H/O cataract removal with insertion of prosthetic lens Family History Sister Cancer Son Cancer Daughter Hyperlipidemia Social History marital status: number of children: 3 household members: family Smoking Status: Current some day smoker alcohol intake: never caffeine: Yes Type(s) of exercise: walking and regular exercise frequency: decline to answer Meds Home Medications and Allergies Home Medications ?Medication ?Instructions ?Recorded ?Confirmed ?Type amlodipine 10 mg tablet 10 mg PO BEDTIME 06/29/19 11/20/24 History nebivolol 5 mg tablet 5 mg PO BEDTIME 06/29/19 11/13/24 History aspirin 81 mg tablet,delayed 81 mg PO .COMPLEX 03/03/24 11/20/24 History release multivitamin 1 tab PO DAILY 03/03/24 11/20/24 History tamsulosin 0.4 mg capsule 0.8 mg (2 x 0.4 mg) PO DAILY #180 10/31/24 11/20/24 Rx caps levofloxacin 750 mg tablet 750 mg PO DAILY 7 days #7 tabs 11/17/24 Rx Allergies Allergy/AdvReac Type Severity Reaction Status Date / Time Penicillins (PENICILLINS) Allergy Severe HEADACHE, Verified 11/20/24 04:11 CHEST PAIN Exam Vital Signs (past 8 hours): - 11/20/24 08:00 11/20/24 08:01 11/20/24 08:01 Temperature Pulse Rate 50 L 50 L Respiratory Rate Blood Pressure 116/58 L Pulse Oximetry 92 95 Oxygen Delivery Method Oxygen Flow Rate 11/20/24 08:30 11/20/24 08:30 11/20/24 09:00 Temperature 97.4 F L Pulse Rate 53 L 63 Respiratory Rate 20 Blood Pressure 123/59 L 143/68 H Pulse Oximetry 97 Oxygen Delivery Method Oxygen Flow Rate 11/20/24 10:30 11/20/24 12:43 Temperature 97.1 F L Pulse Rate 63 Respiratory Rate 16 Blood Pressure 149/72 H Pulse Oximetry 98 Oxygen Delivery Method Room Air Oxygen Flow Rate 0 Oxygen Delivery Method Room Air Oxygen Flow Rate 0 Objective Labs 11/20/24 04:11 11/20/24 04:11 Labs: Laboratory Results - last 24 hr 11/20/24 11/20/24 11/20/24 04:11 11:15 13:43 WBC 7.7 RBC 3.52 L Hgb 10.5 L Hct 30.2 L MCV 85.7 MCH 29.8 MCHC 34.8 RDW 12.9 Plt Count 296 Neut % (Auto) 49.9 L Lymph % (Auto) 33.4 Early % (Auto) 10.0 Eos % (Auto) 4.7 H Baso % (Auto) 2.0 Neut # (Auto) 3800 Lymph # (Auto) 2600 Early # (Auto) 800 Eos # (Auto) 400 Baso # (Auto) 200 H Sodium 127 L Potassium 3.6 Chloride 94 L Carbon Dioxide 24 BUN 8 L Creatinine 0.73 Estimated GFR > 60 BUN/Creatinine Ratio 11.0 Glucose 99 POC Whole Bld Glucose 125 H Calcium 9.2 Troponin I < 0.012 Assessment & Plan Time-Based Coding :: [TOTAL MINUTES] spent with patient and on the chart (including review of chart, obtaining history, exam, reviewing outside data, placing orders, documenting exam and treatment plan, and counseling patient) on [DATE].
--- NOTE | 2024-11-20 20:07 | SUR.OPER ---
Lithotomy on padded OR bed, head on pillow, arms secured on padded arm boards at <90 degrees abduction. Legs secured in padded yellow fins stirrups. STRAP ACROSS CHEST
--- NOTE | 2024-11-20 20:12 | PC.NURSE ---
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
--- NOTE | 2024-11-20 21:09 | PM.OP.1 ---
Operative Date/Time/Diagnoses Date of procedure: 11/20/24 Time of procedure: 20:45 Pre-op diagnosis: Gross hematuria, clot retention Post-op diagnosis: same Procedure & Clinicians Procedure: Cystoscopy Clot evacuation Bladder fulguration Same procedure(s) as scheduled: Yes Indications: 89 y/o M noted to have symptoms consistent w/ BPH and LUTS that are currently managed w/ Tamsulosin 0.8mg daily. Unfortunately, he developed AUR in late September 2024 in the setting of constipation. He failed his voiding trial last week and had a new martinez catheter replaced. Unfortunately, this become clogged secondary to blood clots and he continues to have gross hematuria. Should he continue to fail his voiding trials, discussed treatment options to include a chronic martinez catheter, a suprapubic tube placement or a bladder outlet procedure. Also discussed the possible addition of Finasteride 5mg daily (discussed possible side effects to include decreased libido, worsening erectile dysfunction, loss of ejaculate volume as well as painful breast development or nipple tenderness). Regarding his gross hematuria, discussed treatment options to include leaving the martinez catheter in place (not recommended), admission to the hospital for CBI (recommended) given that I am unable to irrigate his catheter at the moment with ultimate plans for a cystoscopy with clot evacuation, bladder fulguration and possible TURBT. Discussed risks of the procedure to include but not limited to pain, bleeding, infection, injury to urethra/prostate/bladder/ureteral orifice, need for a ureteral stent, prolonged catheterization, and possible open repair of ureteral and/or bladder injury. He indicated understanding. Surgeon: Alexei Coffman Click Yes if Unassisted: Yes Anesthesia Type: General Operative Notes Findings: Very large blood clot within his bladder, diffuse bleeding from lateral prostatic lobes Closure Type: not applicable Specimen(s): none sent Applied: catheter Estimated Blood Loss (mL): 100 Blood products transfused: none Procedure in detail: Patient was identified in the preoperative holding area and consent confirmed. He was then brought to the operating room where general anesthesia was induced. He was then placed in the low lithotomy position. He was then prepped and draped in the usual sterile fashion. A surgical timeout was conducted and all were in agreement. His urethral meatus was serially dilated from 22Fr to 30Fr using the [place] sounds. Access to the bladder was obtained via the 26Fr resectoscope with visual obturator. A very large blood clot was immediately noted within his bladder. This was manually evacuated using the Tumi syringe. Bilateral ureteral orifices were then visualized and noted to be orthotopic in nature. Complete cystoscopy was performed and no concerning masses or lesions were noted. He was noted to have diffuse bleeding from his lateral prostatic lobes. The working element with Gyrus loop was then assembled and passed through the resectoscope and into the bladder. Hemostasis was evaluated and noted to be excellent at case end. A 24Fr 3-way hematuria catheter was advanced into his bladder and 45 cc of sterile water was utilized for balloon insufflation. Anesthesia was reversed, he was extubated in the OR and transferred to the PACU in stable condition for recovery. Complications: none Complications: none Post-operative Condition: stable Disposition: Acute Care Plan for aftercare: Transfer back to acute care. Possible discharge home this evening vs in the morning.
--- NOTE | 2024-11-20 22:12 | PC.NURSE ---
seed laboratory assistant patient returned to floor after surgery at 2200, IVF going per EMAR, patient orientated to room and call light and protocols, patient verbalized understanding and had no questions. AOx4 room air, and martinez in place with patency.
[2024-11-21] VITALS (12 sets, daily range): BP systolic 120–150; BP diastolic 54–84; PULSE 63–88; RESP 14–22; TEMP 35.9–36.6; O2SAT 94–98; BMI 29.4
[2024-11-21] MEDS: TAMSULOSIN 0.4 MG CAPSULE 0.8 MG PO (10:00)
--- NOTE | 2024-11-21 12:54 | P.PN_ITS ---
Subjective Subjective Date Patient Seen: 11/21/24 Interval history: Chief complaint: Gross hematuria History of present illness: 11/20: 89-year-old male with longstanding history of urinary retention and BPH developed red urine with clots and was re-evaluated in the ER on 15 October 2024. He was ultimately discharged home with his catheter in place and failed a repeat voiding trial on 17 October 2024. His catheter was removed on 23 Oct 2024 and he was noted to have clot retention, therefore, he was brought urgently to the operating room for a cystoscopy and clot evacuation done by Dr. Coffman. A martinez catheter was replaced and he was discharged home. Although he passed his voiding trial on Oct, he was unable to urinate the following morning and it was replaced. He just recently saw Dr. Coffman in the office and had his Martinez taken out on 11/13/24. This am he urinated once but did see blood clots in the urine. Now he is unable to urinate and complains of bladder distention pain in his back. Postvoid residual urine volume from the bladder scan shows over 900 cc of urine. In the emergency department hemogram was unremarkable, sodium 127 potassium 3.6 BUN 8 creatinine 0.73 troponin 0.012 EKG sinus rhythm no acute ST segments or T- wave changes Previous echocardiogram in May showed ejection fraction of 50% and right ventricular systolic pressure of 39 mm otherwise unremarkable Patient episode of chest pain this morning upon arrival floor lasted for about 90 seconds it was on the left precordium is not associated with shortness for breath diaphoresis dizziness nausea did not radiate EKG was nonacute and troponin was normal Patient had procedure by Urology excerpt below: His urethral meatus was serially dilated from 22Fr to 30Fr using the Valerie sounds. Access to the bladder was obtained via the 26Fr resectoscope with visual obturator. A very large blood clot was immediately noted within his bladder. This was manually evacuated using the Tumi syringe. Bilateral ureteral orifices were then visualized and noted to be orthotopic in nature. Complete cystoscopy was performed and no concerning masses or lesions were noted. He was noted to have diffuse bleeding from his lateral prostatic lobes. The working element with Gyrus loop was then assembled and passed through the resectoscope and into the bladder. Hemostasis was evaluated and noted to be excellent at case end. A 24Fr 3-way hematuria catheter was advanced into his bladder and 45 cc of sterile water was utilized for balloon insufflation. 11/21: Unfortunately patient had a BUN gross hematuria this morning with some urgency and discomfort associated with it when I returned to the room urology was flushing bladder. [facility] hemostasis on his prostate and temporizing is acute hemorrhage. Further plan is for tomorrow to undergo formal TURP Review of systems: No fever or chills Shortness for breath No nausea vomiting diarrhea The paresthesia paresis Physical exam: Elderly male in no acute distress HEENT unremarkable Heart rate and rhythm regular no murmurs Lungs clear Abdomen nontender bowel sounds present Extremities no edema Neuro nonfocal Recurrent gross hematuria bladder outlet obstruction * Cystoscopy with Urology did not achieve hemostasis * Repeat attempt at spot hemostasis of prostate tonight * Formal TURP Wednesday 11/22: Atypical chest pain: * Heart score is 3 (low suspicion) DVT prophylaxis: * SCDs of Code status: * Full code Disposition: * Switch from observation to admission we will be going to procedure late this evening if feeling stable may discharge after procedure 55 minutes were involved in the management of this patient including [id number] evaluation physical examination review of objective laboratory and EKG findings as well as imaging Exam Vital Signs (past 8 hours): - 11/21/24 08:00 11/21/24 12:13 Temperature 97.4 F L 97.3 F L Pulse Rate 67 63 Respiratory Rate 18 16 Blood Pressure 150/70 H 124/59 L Pulse Oximetry 97 94 Oxygen Flow Rate 0 0 Oxygen Delivery Method Room Air Oxygen Flow Rate 0 Objective Labs 11/20/24 04:11 11/20/24 04:11 Labs: Laboratory Results - last 24 hr 11/20/24 13:43 Troponin I < 0.012 [facility] Medical History Hx of chronic arthritis Cataract Femur fracture, right Hearing loss 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 Retinal detachment HTN (hypertension) Surgical History History of hip replacement S/P colonoscopy with polypectomy S/P TURP (status post transurethral resection of prostate) H/O cataract removal with insertion of prosthetic lens Family History Sister Cancer Son Cancer Daughter Hyperlipidemia Social History marital status: number of children: 3 household members: family Smoking Status: Current some day smoker alcohol intake: never caffeine: Yes Type(s) of exercise: walking and regular exercise frequency: decline to answer Assessment & Plan Time-Based Coding :: [TOTAL MINUTES] spent with patient and on the chart (including review of chart, obtaining history, exam, reviewing outside data, placing orders, documenting exam and treatment plan, and counseling patient) on [DATE].
--- NOTE | 2024-11-21 12:56 | P.PN_ITS ---
Subjective Subjective Date Patient Seen: 11/21/24 Time Patient Seen: 10:30 Interval history: 89 y/o M w/ h/o BPH and LUTS that is managed w/ Tamsulosin 0.8mg daily who continues to have gross hematuria as he has diffuse bleeding from lateral prostatic lobes. He is now POD 1 s/p a cystoscopy with clot evacuation and prostate fulguration. He continues to have gross hematuria. Exam Vital Signs (past 8 hours): - 11/21/24 08:00 11/21/24 12:13 Temperature 97.4 F L 97.3 F L Pulse Rate 67 63 Respiratory Rate 18 16 Blood Pressure 150/70 H 124/59 L Pulse Oximetry 97 94 Oxygen Flow Rate 0 0 Oxygen Delivery Method Room Air Oxygen Flow Rate 0 Narrative Exam Narrative: GEN: Alert and oriented X3. No acute distress. Well-nourished. EYES: PERRLA, EOMI. HENT: Moist mucus membranes, no scleral icterus, normal neck ROM. RESP: Unlabored breathing, equal rise and fall of chest bilaterally, no cyanosis appreciated. CV: No peripheral edema, unremarkable heart rate. ABD: Soft, non-tender, non-distended, no palpable masses. : Unremarkable penis, no urethral discharge, no meatal stenosis. Ruiz catheter secured and draining dark red urine with clots. Ruiz was manually flushed and more than 200 cc's of clot was manually evacuated from his bladder. EXT: No edema, clubbing or cyanosis. SKIN: No rashes or lesions. NEURO: No focal neurologic deficits, CN II-XII grossly intact. PSYCH: Cooperative, appropriate mood and affect. 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 Retinal detachment HTN (hypertension) Surgical History History of hip replacement S/P colonoscopy with polypectomy S/P TURP (status post transurethral resection of prostate) H/O cataract removal with insertion of prosthetic lens Family History Sister Cancer Son Cancer Daughter Hyperlipidemia Social History marital status: number of children: 3 household members: family Smoking Status: Current some day smoker alcohol intake: never caffeine: Yes Type(s) of exercise: walking and regular exercise frequency: decline to answer Assessment & Plan Post-op Postoperative Procedures: Procedures Operation Date: 11/20/24 18:15 Actual Procedure Side Surgeon p Cystoscopy, clot evacuation, bladder fulguration Alexei Coffman DO Operation Date: 11/21/24 17:00 <No data on this case meets the specified criteria> Postoperative plan narrative: 89 y/o M w/ h/o BPH and LUTS that is managed w/ Tamsulosin 0.8mg daily who continues to have gross hematuria as he has diffuse bleeding from lateral prostatic lobes. He is now POD 1 s/p a cystoscopy with clot evacuation and prostate fulguration. He continues to have gross hematuria. His catheter was flushed again today and more than 200 cc's of clot was manually evacuated. He is currently on traction with CBI running. - Recommend UCx directed antibiotics - Appreciate web press operator assistant of hospitalist team - Continue CBI at the moment, irrigate if needed - Will go to OR this evening for a cystoscopy with clot evacuation, bladder fulguration and possible TURBT. Would plan on having him on traction afterwards and running CBI overnight again. Time Spent With Patient Time with patient: 15-24 minutes
--- NOTE | 2024-11-21 13:47 | CM.DANOTE ---
Initial DCP Assessment Visit Note Reviewed EMR and team rounds for pt's medical status and updates. Met with pt at bedside to introduce self and role, pt was found to be alert/oriented, but very ALEKNAGIK. Pt lives modified independently in his home here in [place] with family, pt has 2-local daughters who are very supportive and involved. Daughters will also transport him home once he's medically stable for home d/c, likely in another 1-2 days. Payor: BRYNN Owen Attending: Dr. Coffman PCP: Huong Edward Pt is a 89 year-old M with a hx of having a Ruiz catheter and prostate issues. He is followed OP by Dr. Coffman in Urology. He had his catheter removed on 11/13/24, after which he developed urinary retention and hematuria. He returned to the ED on 11/17, had a new Ruiz placed, and was started on IV Levoquin for a suspected UTI. He presented to the ED yesterday afternoon with c/o having very little urine output, and the urine that he was getting was pink and became dark. Dr. Coffman took him to the OR yesterday and irrigated his bladder of large clots, bleeding appeared to be from his prostate lobes. He has been receiving bladder irrigation throughout the day today, however his hematuria has not stopped. Plan is to take him back to the OR this evening for further irrigation and cystoscopy for further inventions. DCP will continue to monitor for final d/c assistance and resource needs. Discharge Planning/Care Management Advanced directive, confirm from FAMILY Start: 11/20/24 12:21 Freq: Q24H Status: Active Protocol: Document 11/20/24 12:21 CEW (Rec: 11/20/24 15:17 CEW [id number]) Advance Directive, confirm on record Time 11:00 Person contacted Patient Copy received No Document 11/21/24 12:21 KMD (Rec: 11/21/24 12:45 KMD [id number]) Advance Directive, confirm on record Time 11:00 Person contacted Patient Copy received No CM Discharge Assessment Start: 11/20/24 07:51 Freq: Status: Active Protocol: Document 11/21/24 13:45 DPL (Rec: 11/21/24 13:47 DPL [id number]) Discharge Planning Assessment Assigned Discharge CRISTI Truj[place] [employer]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 Yes Advance Directives No on File History Provided By Patient,Medical Record Has Patient been No admitted in last 30 days? Prior Living House Arrangements Household Members family Type of Relies on Others transporation used prior to admit Independent with ADL No: modified independent 's Is patient alert and Yes: very ALEKNAGIK oriented? Needs Assistance Home Chores / Shopping With Caregiver for No Another Comment N/A Barriers to No Discharge Transportation daughter Arrangement Referrals Initiated None needed Whiteboard Updated Yes in Patient Room with name and ext. # of Photo Finisher Review Status In Process Please Provide Date 11/21/24 Initial DC Assessment Was Performed
[2024-11-21] MEDS: levoFLOXacin 500 MG/100 ML PIGGYBACK 100 MG IV (17:25)
--- NOTE | 2024-11-21 17:30 | PC.NURSE ---
Pt resting at intervals. Denies discomfort when asked. Md in to see; F/C w/ dark drainage noted. MD started CBI at that time Pt escorted by OR staff to surgery at 1615 Will assess upon return to floor.
--- NOTE | 2024-11-21 17:31 | SUR.OPER ---
Lithotomy on padded OR bed, head on pillow, arms secured on padded arm boards at <90 degrees abduction. Legs secured in padded yellow fins stirrups. Surgeon confirmed positioning.
--- NOTE | 2024-11-21 18:21 | PM.OP.1 ---
Operative Date/Time/Diagnoses Date of procedure: 11/21/24 Time of procedure: 17:20 Pre-op diagnosis: Gross hematuria, clot retention Post-op diagnosis: same Procedure & Clinicians Procedure: Cystoscopy Clot evacuation Prostate fulguration Same procedure(s) as scheduled: Yes Indications: 89 y/o M w/ h/o BPH and LUTS that is managed w/ Tamsulosin 0.8mg daily who continues to have gross hematuria as he has diffuse bleeding from lateral prostatic lobes. He is now POD 1 s/p a cystoscopy with clot evacuation and prostate fulguration. He continues to have gross hematuria. His catheter was flushed again today and more than 200 cc's of clot was manually evacuated. He is currently on traction with CBI running. Unfortunately, he is taking a baby ASA multiple days per week. He is in need of a TURP to remove the aforementioned bleeding prostate as well as open up his lower urinary tract to allow for volitional voiding. Unfortunately, this cannot occur until after his baby ASA has been held for one week. Therefore, will plan on a possible cystoscopy with TURP on 26 Nov 2024 following a cystoscopy with clot evacuation and prostatic fulguration today. Surgeon: Alexei Coffman Click Yes if Unassisted: Yes Anesthesia Type: General Operative Notes Findings: Very large blood clot within his bladder, diffuse bleeding from lateral prostatic lobes Closure Type: not applicable Specimen(s): none sent Applied: catheter Estimated Blood Loss (mL): 200 Blood products transfused: none Procedure in detail: Patient was identified in the preoperative holding area and consent confirmed. He was then brought to the operating room where general anesthesia was induced. He was then placed in the low lithotomy position. He was then prepped and draped in the usual sterile fashion. A surgical timeout was conducted and all were in agreement. His urethral meatus was serially dilated from 22Fr to 30Fr using the [place] sounds. Access to the bladder was obtained via the 26Fr resectoscope with visual obturator. A very large blood clot was immediately noted within his bladder. This was manually evacuated using the Tumi syringe. Bilateral ureteral orifices were then visualized and noted to be orthotopic in nature. Complete cystoscopy was performed and no concerning masses or lesions were noted. He was noted to have diffuse bleeding from his lateral prostatic lobes. The working element with Gyrus loop was then assembled and passed through the resectoscope and into the bladder. Hemostasis was evaluated and noted to be excellent at case end. A 24Fr 3-way hematuria catheter was advanced into his bladder and 45 cc of sterile water was utilized for balloon insufflation. Anesthesia was reversed, he was extubated in the OR and transferred to the PACU in stable condition for recovery. Complications: none Post-operative Condition: stable Disposition: PACU Plan for aftercare: Transfer back to acute care. Will leave martinez catheter on traction overnight. I will then evaluate catheter prior to releasing traction and will determine next steps moving forward.
[2024-11-22 01:01] VITALS: BP 135/70; PULSE 72; RESP 16; O2SAT 98
[2024-11-22 05:00] VITALS: BP 134/66; PULSE 63; O2SAT 96
[2024-11-22] MEDS: TAMSULOSIN 0.4 MG CAPSULE 0.8 MG PO (08:19)
[2024-11-22 09:00] VITALS: BP 149/71; PULSE 75; RESP 20; TEMP 36; O2SAT 96
--- NOTE | 2024-11-22 11:47 | PM.PNPO.1 ---
Subjective Subjective Date Patient Seen: 11/22/24 Time Patient Seen: 07:30 Interval history: 89 y/o M w/ h/o BPH and LUTS that is managed w/ Tamsulosin 0.8mg daily who continues to have gross hematuria as he has diffuse bleeding from lateral prostatic lobes. He is now POD 2 s/p a cystoscopy with clot evacuation and prostate fulguration and POD 1 s/p a repeat cystoscopy with clot evacuation and prostate fulguration. His urine output has remained clear. Exam Vital Signs (past 8 hours): - 11/22/24 05:00 11/22/24 09:00 Temperature 96.8 F L Pulse Rate 63 75 Respiratory Rate 20 Blood Pressure 134/66 149/71 H Pulse Oximetry 96 96 Oxygen Delivery Method Room Air Oxygen Flow Rate 0 Narrative Exam Narrative: GEN: Alert and oriented X3. No acute distress. Well-nourished. EYES: PERRLA, EOMI. HENT: Moist mucus membranes, no scleral icterus, normal neck ROM. RESP: Unlabored breathing, equal rise and fall of chest bilaterally, no cyanosis appreciated. CV: No peripheral edema, unremarkable heart rate. ABD: Soft, non-tender, non-distended, no palpable masses. : Unremarkable penis, no urethral discharge, no meatal stenosis. Martinez catheter secured and draining clear yellow urine. EXT: No edema, clubbing or cyanosis. SKIN: No rashes or lesions. NEURO: No focal neurologic deficits, CN II-XII grossly intact. PSYCH: Cooperative, appropriate mood and affect. 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 Retinal detachment HTN (hypertension) Surgical History History of hip replacement S/P colonoscopy with polypectomy S/P TURP (status post transurethral resection of prostate) H/O cataract removal with insertion of prosthetic lens Family History Sister Cancer Son Cancer Daughter Hyperlipidemia Social History marital status: number of children: 3 household members: family Smoking Status: Current some day smoker alcohol intake: never caffeine: Yes Type(s) of exercise: walking and regular exercise frequency: decline to answer Assessment & Plan Post-op Postoperative Procedures: Procedures Operation Date: 11/20/24 18:15 Actual Procedure Side Surgeon p Cystoscopy, clot evacuation, bladder fulguration Alexei Coffman DO Operation Date: 11/21/24 17:00 Actual Procedure Side Surgeon p Cystoscopy w/ clot evacutaion, bladder fulguration Alexei Coffman DO Postoperative plan narrative: 89 y/o M w/ h/o BPH and LUTS that is managed w/ Tamsulosin 0.8mg daily who continues to have gross hematuria as he has diffuse bleeding from lateral prostatic lobes. He is now POD 2 s/p a cystoscopy with clot evacuation and prostate fulguration and POD 1 s/p a repeat cystoscopy with clot evacuation and prostate fulguration. His urine output remains clear. - Will continue to hold his baby ASA - Will be discharge home with 3 way martinez catheter in place - Will return to Urology clinic on 25 Nov 2024 at 1440 for a preoperative appointment - Will plan for a transurethral resection of prostate on 26 Nov 2024 - Please discharge home with Levofloxacin 500mg daily for the next 7 days. Time Spent With Patient Time with patient: 15-24 minutes
[2024-11-22 12:00] VITALS: BP 134/74; PULSE 72; RESP 18; TEMP 36.6; O2SAT 97
--- NOTE | 2024-11-22 12:19 | P.DS_ITS ---
History of Present Illness History of Present Illness Date Patient Seen: 11/22/24 Time Patient Seen: 07:55 Chief complaint: Catheter Issues, Blood In Urine Narrative: 89-year-old male with longstanding history of urinary retention and BPH developed red urine with clots and was re-evaluated in the ER on 15 October 2024. He was ultimately discharged home with his catheter in place and failed a repeat voiding trial on 17 October 2024. His catheter was removed on 23 Oct 2024 and he was noted to have clot retention, therefore, he was brought urgently to the operating room for a cystoscopy and clot evacuation done by Dr. Coffman. A martinez catheter was replaced and he was discharged home. Although he passed his voiding trial on Oct, he was unable to urinate the following morning and it was replaced. He just recently saw Dr. Coffman in the office and had his Martinez taken out on 11/13/24. This am he urinated once but did see blood clots in the urine. Now he is unable to urinate and complains of bladder distention pain in his back. Postvoid residual urine volume from the bladder scan shows over 900 cc of urine. In the emergency department hemogram was unremarkable, sodium 127 potassium 3.6 BUN 8 creatinine 0.73 troponin 0.012 EKG sinus rhythm no acute ST segments or T- wave changes Previous echocardiogram in May showed ejection fraction of 50% and right ventricular systolic pressure of 39 mm otherwise unremarkable Patient episode of chest pain this morning upon arrival floor lasted for about 90 seconds it was on the left precordium is not associated with shortness for breath diaphoresis dizziness nausea did not radiate EKG was nonacute and troponin was normal Discharge Providers Provider Date of admission: 11/21/24 13:13 Discharge Date: 11/22/24 Primary care physician: Huong Thrasher PA-C Discharge provider: Carl Santana MD Summary Hospital Course Discharge Diagnosis: 1. Recurrent gross hematuria, bladder outlet obstruction 2. BPH with lower tract symptoms 3. Atypical chest pain Hospital Course: The patient was admitted to the medical floor and underwent cystoscopy with clot evacuation and prostate fulguration on 11/21/2024 by Urology. his gross hematuria resolved following this procedure, however as he was continuing to take aspirin he was discharged home off aspirin to returned for TURP next week, continuing on oral antibiotics empirically for prostatitis. Case was reviewed with Urology prior to discharge. No other issues arose. Status at Discharge Cognitive/behavioral status at discharge: oriented Functional status at discharge: uses cane/walker Overall status at discharge: patient is progressing back to baseline Time Spent with Patient Time spent: Greater than 30 minutes Exam Vital Signs (past 8 hours): - 11/22/24 05:00 11/22/24 09:00 Temperature 96.8 F L Pulse Rate 63 75 Respiratory Rate 20 Blood Pressure 134/66 149/71 H Pulse Oximetry 96 96 Oxygen Delivery Method Room Air Oxygen Flow Rate 0 Narrative Exam Narrative: Elderly male in no acute distress HEENT unremarkable Heart rate and rhythm regular no murmurs Lungs clear Abdomen nontender bowel sounds present. Urinary catheter in place. 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 Retinal detachment HTN (hypertension) Surgical History History of hip replacement S/P colonoscopy with polypectomy S/P TURP (status post transurethral resection of prostate) H/O cataract removal with insertion of prosthetic lens Family History Sister Cancer Son Cancer Daughter Hyperlipidemia Social History marital status: number of children: 3 household members: family Smoking Status: Current some day smoker alcohol intake: never caffeine: Yes Type(s) of exercise: walking and regular exercise frequency: decline to answer Discharge Plan Discharge Plan Patient Disposition: Home Provider Discharge Comment: You can expect to have burning with urination for the next few days, this is normal and to be expected after your procedure. You may purchase an OTC medication (Phenazopyridine or Azo), a medication that can help with this burning and discomfort. This medication may change the color of your urine orange, however, this will resolve once you stop taking the medication. It is normal to have blood in your urine after the procedure. You may even pass large blood clots for the next several weeks. Expect to have periods of passage of blood clots and red urine which will then resolve after a few days and return to clear yellow urine. This is normal and part of the healing process of your bladder. As long as you are able to completely empty your bladder, it is okay. If you feel that you have to urinate and you are unable to empty your bladder, please go to the closest emergency room or contact our clinic for evaluation. It is important to refrain from heavy lifting (> 20 lbs) for the next two weeks. Please also avoid strenuous activities (running, elliptical machines, hiking, going to the gym). Please ensure that you have soft daily bowel movements for the next few weeks, you may purchase OTC Miralax and titrate the dosage as needed to achieve soft daily bowel movements. If you are discharged home with a martinez catheter, it is normal for the urine to switch between clear and red and even drain some blood clots. Some of the urine may also drain around the catheter, however, as long as the majority of the urine is draining through the catheter that is okay and to be expected. Should the catheter stop draining for an hour or more, please present to [facility] ER for evaluation after hours, or the Urology clinic during daylight hours. You have an appointment in the Urology clinic for your preoperative appointment on 25 Nov 2024 at 1440. Discharge orders & Medications Prescriptions: Continued multivitamin Tablet 1 tab PO DAILY nebivolol 5 mg tablet 5 mg PO BEDTIME amlodipine 10 mg tablet 10 mg PO BEDTIME levofloxacin 750 mg tablet 750 mg PO DAILY 7 Days Qty: 7 0RF tamsulosin 0.4 mg capsule 0.8 mg PO DAILY Qty: 180 0RF Discontinued aspirin 81 mg tablet,delayed release (DR/EC) 81 mg PO .COMPLEX Rx Instructions: 81 mg orally Mon, Wed, Fri Follow up/Referrals: Huong Thrasher PA-C [Primary Care Provider, Medical] Activity Restrictions/Additional Instructions: Follow up with Dr. Coffman at your appointment. Continue oral antibiotics. Return if any fevers, changes to mentation, new abdominal, back or flank pain, if catheter is not draining or is clotted or other new or concerning changes. Diet/Activity/Treatments Diet: Diet as Tolerated Catheter: 3-way Martinez Skin/Wound/Dressing Care Report to your healthcare provider any signs of infection, such as:: chills, fever, night sweats, increased pain and unusual drainage Visit Report/Discharge Packet Instructions: How to Care for Your Martinez Catheter -- Male Stand Alone Forms: Patient Portal/API, Stroke Signs & Symptoms Discharge Data Primary Care Provider: Huong Thrasher MIPS - Admit I confirm the patient?s Advance Care Plan is present, Code status is documented, Surrogate decision maker is in patient?s record [If Yes, STOP here]: Yes MIPS - Meds 'Current medications' to include all prescriptions, [id number] products, herbals, cannabis/cannabidiol products, and vitamin/mineral/dietary (nutritional) supplements. I have utilized all available resources to obtain, update, or review the patient?s current medications. [If Yes, STOP here]: Yes MIPS - DC The patient has a history of heart transplant or Left Ventricular Assist Device (LVAD). If yes, STOP here.: No The patient has current or prior documentation of left ventricular ejection fraction (LVEF) less than or equal to 40%, or moderate or severely depressed left ventricular systolic function.: No A. The patient was prescribed or already taking an Angiotensin-Converting Enzyme (PARRISH) Inhibitor, or Angiotensin Receptor Murray (ARB).: No B. The patient was prescribed or already taking a beta-murray. [If Yes to Both A & B, STOP here]: Yes Patient not prescribed/taking PARRISH or ARB, no reason given.: No Patient not prescribed/taking beta-murray, no reason given.: No [facility] PROFEE Charge Codes Discharge inpatient/observation: [id number]
--- NOTE | 2024-11-22 13:01 | CM.DPC ---
DCP Discharge Home Per MD, pt is medically stable to discharge home today with outpt f/u with Urology for ongoing needs and procedures. Per RN, pt's Dtrs are bedside and able to provide transport home today. No concerns noted CRISTI Michele
--- NOTE | 2024-11-22 13:25 | PC.NURSE ---
Pt condition remains improved from yesterday. CBI at slow rate; urine in tube light gerri colored. MD in to see; clamped CBI for an hour. No change in color of urine. D/C orders received. SL x 2 D/C in tact. Home instructions given w/understanding. Pt escorted by staff via W/C to waiting vehicle. D/C in stable status.
== END 2024-11-22 13:15 | disposition home or self-care (01) | DRG 713 ==
LOC: ED 04:02 → AC 07:27
PROVIDERS: Urology; Admitting Provider Internal Medicine; Emergency Provider Emergency Medicine; PCP Physician Assistant; Referring Provider Emergency Medicine; Visit Provider Internal Medicine
PROC: 0TCB8ZZ Extirpation of Matter from Bladder, Via Natural or Artificial Opening Endoscopic (ICD-10-PCS; principal; 2024-11-20 18:15)
PROC: 0V508ZZ Destruction of Prostate, Via Natural or Artificial Opening Endoscopic (ICD-10-PCS; principal; 2024-11-21 17:00)
DX: N40.1 Benign prostatic hyperplasia with lower urinary tract symptoms (principal); N13.8 Other obstructive and reflux uropathy; R31.0 Gross hematuria; R07.9 Chest pain, unspecified; I10 Essential (primary) hypertension; F17.200 Nicotine dependence, unspecified, uncomplicated; T83.098A Other mechanical complication of other urinary catheter, initial encounter; Y73.1 Therapeutic (nonsurgical) and rehabilitative gastroenterology and urology devices associated with adverse incidents; Z79.82 Long term (current) use of aspirin
CPT/HCPCS: 36415; 51702; 51798; 52001; 52214; 80048; 82962; 84484; 85025; 93005; 96365; 99222; 99231; 99232; 99284; G0378; J1100; J1956; J2405; J2704; J3010

== ENCOUNTER 2024-11-26 09:24 | Day surgery (SDC) | payer MEDICARE, SELFPAY ==
[2024-11-20 11:58] VITALS: BMI 29.4
[2024-11-26] VITALS (17 sets, daily range): BP systolic 116–174; BP diastolic 57–85; PULSE 54–71; RESP 12–20; TEMP 36.2–36.8; O2SAT 94–99; BMI 29.4
--- NOTE | 2024-11-26 | PATH_ITS ---
[facility] Accession Number: [id number] No. of containers..01 Tissue . 01 Material submitted: . prostate - PROSTATE CHIPS . 01 Diagnosis: A: PROSTATE CHIPS, (22 GRAMS), TRANSURETHRAL RESECTION: Prostatic glandular and stromal hyperplasia with patchy inflammation and necrosis. Negative for invasive malignancy. [facility] 11/28/2024 1611 Local . 01 Comment: - As part of ongoing quality inspector, select slides were reviewed by Dr. Terese Yeh who agrees with the interpretation. . 01 Electronically signed: . Reese Ann MD, Pathologist NPI- [id number] . 01 Gross description: . Received in formalin with two identifiers and prostate chips are multiple pink-stoll rubbery soft tissue fragments weighing 22 grams and aggregating to 8.8 x 8.0 x 2.0 cm. [employer] tissue is submitted in A1-A10. ([id number]) /V 11/27/2024 1556 Local . 01 Pathologist provided ICD-10: N40.1 . 01 CPT . 052093 Specimen Comment: A courtesy copy of this report has been sent to [facility] Pathology Performed at: [address] [facility] [address], [place], [place] [id number] MD Christian Chavez MD Phone: [phone]
[2024-11-26] MEDS: ACETAMINOPHEN 325 MG TABLET 975 MG PO ×2 (09:52→16:21)
[2024-11-26] MEDS: LACTATED RINGERS 1,000 ML 42 ML IV (09:53)
--- NOTE | 2024-11-26 10:02 | PM.PREOP ---
Pre-operative Note COVID-19 COVID-19 status: Not tested Interval Note History & Physical reviewed/Exam performed by Physician: Yes Changes to H&P: No
[2024-11-26] MEDS: levoFLOXacin 500 MG/100 ML PIGGYBACK 100 MG IV (10:20)
--- NOTE | 2024-11-26 10:38 | SUR.OPER ---
Lithotomy on padded OR bed, head on pillow, arms secured on padded arm boards at <90 degrees abduction. Legs secured in padded yellow fins stirrups. STRAP ACROSS WAIST
--- NOTE | 2024-11-26 12:17 | PM.OP.1 ---
Operative Date/Time/Diagnoses Date of procedure: 11/26/24 Time of procedure: 10:45 Pre-op diagnosis: Benign prostatic hyperplasia with lower urinary tract symptoms, urinary retention Post-op diagnosis: same Procedure & Clinicians Procedure: Cystoscopy Transurethral resection of prostate Same procedure(s) as scheduled: Yes Indications: 89 y/o M noted to have symptoms consistent w/ BPH and LUTS that are currently managed w/ Tamsulosin 0.8mg daily. Unfortunately, he developed AUR in late September 2024 in the setting of constipation. He failed his voiding trial in late September 2024 and although his constipation resolved, was unable to urinate 23 Oct 2024 with dark red urine appreciated with placement of his martinez catheter. He underwent a cystoscopy with clot evacuation and replacement of his martinez catheter on 23 Oct 2024. He passed his voiding trial on Oct, however, returned the following moving for inability to urinate. He was noted to have refractory gross hematuria leading to clot retention that was managed with a cystoscopy and prostate fulguration x2 in early Nov 2024. His TRUS prostate today was notable for a 48g prostate. Discussed treatment options to include a chronic indwelling martinez catheter, SPT, CIC, bilateral percutaneous nephrostomy tubes or a TURP. Discussed risks of the procedure to include but not limited to pain, bleeding, infection, injury to urethra/bladder/either ureteral orifice, clot retention, irritative voiding symptoms for several months following the procedure, urinary incontinence, erectile dysfunction, retrograde ejaculation, need for open emergent repair of any bladder or ureteral injuries, urethral stricture or bladder neck contracture development, need for repeat procedures. Surgeon: Alexei Coffman Click Yes if Unassisted: Yes Anesthesia Type: General Operative Notes Findings: Coaptating lateral prostatic lobes, no intravesical median lobe Closure Type: not applicable Specimen(s): other (prostate chips) Applied: catheter Estimated Blood Loss (mL): 50 Blood products transfused: none Procedure in detail: Patient was identified in the preoperative holding area and consent confirmed. He was then brought to the operating room where general anesthesia was induced. He was then placed in the low lithotomy position. He was then prepped and draped in the usual sterile fashion. A surgical timeout was conducted and all were in agreement. Access to the bladder was obtained via a 21Fr cystoscope. Complete cystoscopy was then performed using a 30 and 70 degree lens. Bilateral ureteral orifice were easily visualized and noted to be orthotopic in nature. He had grade 2 trabeculations throughout his bladder, no concerning masses or lesions were appreciated. The cystoscope was then removed and his urethral meatus was serially dilated from 24Fr to 30Fr using [place] sounds. The 26Fr resectoscope with visual obturator was then advanced through his urethra and into his bladder. The working element with Gyrus loop was then assembled and passed through the resectoscope and into the bladder. A channel was created from the 5 o'clock position at the level of the bladder neck to a level just immediately proximal to the verumontanum with a depth of the prostatic capsule. This was repeated in similar fashion at the 7 o'clock position. The median lobe, left lateral lobe and right lateral lobe were then completely resected to the level of the prostatic capsule. All prostate specimens were then manually evacuated from the bladder using the resectoscope. Hemostasis was evaluated and noted to be excellent at case end. A 24Fr 3-way hematuria catheter was then inserted into his bladder, 45cc of sterile water was utilized for balloon insufflation. Continuous bladder irrigation was then initiated and it was noted to be clear. Anesthesia was reversed, he was extubated in the OR and transferred to the PACU in stable condition for recovery. Complications: none Post-operative Condition: stable Disposition: PACU Plan for aftercare: Will continue to run CBI for a few hours to evaluate the efflux from his catheter.? Should it remain relatively clear and with minimal blood clots, will discharge home with catheter in place and have him return to Urology clinic in 2 days for a voiding trial.? Should his efflux remain red or have significant clot burden, will admit overnight for observation and continued CBI.
[2024-11-26] MEDS: PHENAZOPYRIDINE 100 MG TABLET 200 MG PO (12:27)
--- NOTE | 2024-11-26 14:02 | SUR.PHASEII ---
Traction pulled at 1400 and Irrigation wide open for 5 minutes. Leg strap applied. Pt tolerated well.
--- NOTE | 2024-11-26 15:26 | SUR.PHASEII ---
Report given to Kierra Freed RN and handed over care to her.
== END 2024-11-26 16:28 | disposition home or self-care (01) ==
PROVIDERS: PCP Physician Assistant; Referring Provider Urology; Visit Provider Urology
PROC: 0VT08ZZ Resection of Prostate, Via Natural or Artificial Opening Endoscopic (ICD-10-PCS; CPT 52601; principal; 2024-11-26 11:15)
DX: N40.1 Benign prostatic hyperplasia with lower urinary tract symptoms (principal); N13.9 Obstructive and reflux uropathy, unspecified; R33.9 Retention of urine, unspecified; Z87.891 Personal history of nicotine dependence; Z79.82 Long term (current) use of aspirin
CPT/HCPCS: 52601; J1100; J1956; J2405; J2704

== ENCOUNTER → 2024-12-12 09:51 | Outpatient (CLI) | payer MEDICARE, SELFPAY ==
[2024-11-20 11:58] VITALS: BMI 29.4
== END ==
PROVIDERS: PCP Physician Assistant; Visit Provider Urology
DX: N40.1 Benign prostatic hyperplasia with lower urinary tract symptoms (principal)
CPT/HCPCS: 87086

== ENCOUNTER → 2025-02-06 14:56 | Outpatient (CLI) | payer MEDICARE, SELFPAY ==
[2024-11-20 11:58] VITALS: BMI 29.4
[2025-02-06 16:17] LABS: Add Manual Diff / Slide Review NO; Hematocrit 29.5 % (41-53); Hemoglobin 9.5 g/dL (13.5-17.5); Lymphocytes Absolute Auto 2600 /uL (1100-4500); Mean Corpuscular HGB Conc 32.4 % (30-36); Mean Corpuscular Hemoglobin 22.1 PG (26-34); Mean Corpuscular Volume 68.3 fL (80-100); Platelet Count 438 X10^3/uL (150-400)
[2025-02-06 18:16] LABS: Hypochromasia 1+; Microcytosis 2+
[2025-02-06 18:17] LABS: Poikilocytosis 1+
== END ==
PROVIDERS: PCP Physician Assistant; Referring Provider Surgery; Visit Provider Surgery
DX: D64.9 Anemia, unspecified (principal)
CPT/HCPCS: 36415; 85025

== ENCOUNTER → 2025-02-10 10:55 | Outpatient (CLI) | payer MEDICARE, SELFPAY ==
[2024-11-20 11:58] VITALS: BMI 29.4
--- NOTE | 2025-02-10 10:57 | DI.RAD.S_ITS ---
PROCEDURE: XR CHEST 2V INDICATIONS: COUGH TECHNIQUE: 2 views of the chest were acquired. COMPARISON: [facility], CR, XR CHEST 1V, 05/21/2024, 13:43. FINDINGS: [id number]-[id number] bilateral perihilar and lower lobe peribronchial thickening with patchy opacities less than on the prior exam, more than expected for artifact from expiratory result and bronchitis, viral infection, bronchopneumonia or other process should be considered. Follow-up suggested. Mildly enlarged cardiopericardial silhouette unchanged. Moderate calcifications of the aortic arch and tortuous aorta unchanged. Osteopenia and degenerative changes of the thoracic spine and shoulders with S-shaped scoliosis unchanged. No pneumothorax, no pleural effusion no lobar consolidation. Prominent right 1st rib costal manubrial osteophyte unchanged. IMPRESSION: Peribronchial thickening and patchy opacities as discussed above. Follow-up suggested. If symptoms persist or worsen, or there is high clinical suspicion of thoracic abnormality, CT chest could be performed. Other chronic findings as above. Dictated by: Jordy Sargent M.D. on 02/10/2025 at 11:54 Approved by: Jordy Sargent M.D. on 02/10/2025 at 12:02
== END ==
LOC: RAD 10:55
PROVIDERS: PCP Physician Assistant; Referring Provider Physician Assistant; Visit Provider Internal Medicine
DX: R05.2 Subacute cough (principal); I70.0 Atherosclerosis of aorta; M85.89 Other specified disorders of bone density and structure, multiple sites; M41.9 Scoliosis, unspecified
CPT/HCPCS: 71046